=== PATIENT | female | born 1935 | race Caucasian/White ===

== ENCOUNTER 2023-08-26 16:07 | Inpatient (IN) | payer OTHER, SELFPAY ==
[2023-08-26] VITALS (10 sets, daily range): BP systolic 147–169; BP diastolic 59–75; BMI 22.6; BMI 21.2
[2023-08-26 13:06] LABS: Urine Albumin Trace (Neg - Trace); Urine Bilirubin Negative (Negative); Urine Character Very Cloudy (Clear); Urine Color Straw; Urine Glucose Negative (Negative); Urine Ketone Negative (Negative); Urine Leukocyte 2+ (Negative); Urine Nitrite Positive (Negative); Urine Occult Blood Trace (Negative); Urine Urobilinogen Negative (Neg - 1+)
[2023-08-26 13:07] LABS: % Basophils 0.1 % (0-2); % Immature Granulocytes 0.3 % (0-0.5); % Lymphocytes 9.7 % (20.5-51.1); % Monocytes 6.9 % (1.7-9.3); Absolute Lymphocytes 0.7 10^3/uL (1.2-3.4); Absolute Monocytes 0.5 10^3/uL (0.1-0.6); Hematocrit 36.3 % (37.0-47.0); Hemoglobin 12.4 g/dL (12.0-16.0); Mean Corp Hgb Conc. 34.2 g/dL (33.0-37.0); Mean Corpuscular Hgb 30.4 pg (27.0-31.0); Mean Platelet Volume 11.5 fL (7.4-10.4); Nucleated Red Blood Cells % 0 %; Platelet Count 142 10^3/uL (130-400); Red Blood Cell Count 4.08 10^6/uL (4.20-5.40); Red Cell Dist. Width 13.7 % (11.5-14.5); White Blood Cell Count 7.2 10^3/uL (4.8-10.8)
[2023-08-26 13:25] LABS: ALT (SGPT) 30 U/L (0-35); AST (SGOT) 30 U/L (14-36); Alkaline Phosphatase 132 U/L (38-126); Blood Urea Nitrogen 22 mg/dl (7-17); Calcium 10.4 mg/dl (8.4-10.2); Carbon Dioxide 26 mmol/L (22-30); Chloride 101 mmol/L (98-107); Estimated Creatinine Clearance 33 ml/min; Glucose 147 mg/dl (70-99); Lithium 1.1 mmol/L (0.6-1.2); Potassium 4.4 mmol/L (3.5-5.1); Sodium 131 mmol/L (135-145); Total Bilirubin 0.3 mg/dl (0.2-1.3); Total Protein 6.8 g/dl (6.3-8.2); eGFR 48.33
--- NOTE | 2023-08-26 13:35 | ED.GENMED ---
History of Present Illness
<Demetrio Forrest MD - Last Filed: 08/27/23 07:55>
General
Chief Complaint: Weakness
Time Seen by Provider: 08/26/23 12:40
Travel History
Have you had any contact with someone who has COVID-19?: Unable to Answer
Do you have any symptoms of coronavirus? Fever > 100 degrees, chills, cough, shortness of breath, sore throat, loss of taste or smell, muscle aches, or headache?: Unable to Answer
<Addie العراقي PA-C - Last Filed: 08/26/23 17:48>
General
Source: patient
Exam Limitations: none
Nursing documentation reviewed up to this point in time: agreed with
History of Present Illness
History of Present Illness:
This is a 88-year-old female with a history of bipolar disorder, insulin-dependent diabetes, hypertension he is presenting emergency department today with dysphagia and decreased appetite for the past few days. Daughter present with patient who
reports that when she will get UTIs, she will start to slur her words and to have much difficulty speaking. Patient states that she has been having trouble speaking and will often get frustrated when trying to speak. She denies any belly pain,
dysuria, hematuria, fevers or chills. Daughter reports that she has been sleeping a lot more than usual and normally she has a large appetite but she has barely been eating. 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
her third occurrence since 2018. Patient does take haloperidol, lithium, and risperidone daily for her bipolar disorder and has been trying to go off of these in the past however every time she tries to come off of them, her mental health
deteriorates. Daughter reports that patient has a lot of anxiety and some paranoia at baseline, but she usually has no difficulties with speech.
Past History
<Demetrio Forrest MD - Last Filed: 08/27/23 07:55>
Past History
ED Past Medical History: HTN, IDDM, Psychiatric and Other (IBS)
ED Past Surgical History: Cholecystectomy
Social History
Tobacco: Non-smoker
Personal:
Living: with family
Employment: Retired
Review of Systems
<Addie العراقي PA-C - Last Filed: 08/26/23 17:48>
Review of Systems
All Other Systems: ROS reviewed and negative except as documented in HPI and ROS
Phy Exam
<Addie العراقي PA-C - Last Filed: 08/26/23 17:48>
Physical Exam
Physical Exam:
General: Patient is well appearing and in no acute distress; non-toxic
Skin: Warm and dry, no rashes or lesions
Head: Normocephalic, atraumatic
Eyes: Sclera non-icteric. EOMs intact. PERRLA.
Cardiac: Regular rate and rhythm, no murmurs.
Peripheral Vascular: No lower extremity edema, 2+ dorsalis pedis pulses bilaterally
Pulm: Normal respiratory effort, no wheezes, rales, or rhonchi
Abdomen: No abdominal tenderness to palpation, no palpable masses, no guarding, no rebound tenderness.
Neuro: Oriented to person, time, place. CN II-XII intact, no focal neurologic deficits. 4/5 strength in b/l upper and lower extremities. Bilateral upper extremity tremor noted with arms extended. Patient has slurring of her speech and expresses
frustration with this.
Psychiatric: Pleasant and cooperative.
Course
<Demetrio Forrest MD - Last Filed: 08/27/23 07:55>
Orders/Labs/Results
Orders:
Orders
08/26/23 12:45
Blood Culture Q30M
JOVANY Source: Blood/Venous
Specimen Description:
08/26/23 12:46
Electrocardiogram (*1) Urgent
Reason for Study: Fatigue / Weakness
08/26/23 12:47
EKG- Treatment ONCE
08/26/23 12:56
CMP [Comprehensive Metabolic Panel] Urgent
Complete Blood Count/With Diff Urgent
Ferritin Urgent
Comment: ADD
Folate Urgent
Comment: ADD
[place] Urgent
TSH Reflex To Free T4 Urgent
Comment: ADD
Urinalysis Reflex To Culture Urgent
Date Specimen was Collected: 08/26/23
Time Specimen was Collected: 12:47
Urine Microscopic Reflex Cult Urgent
Vitamin B12 Urgent
Comment: ADD
Urine Culture Urgent
JOVANY Source: U
Specimen Description:
Date Specimen was Collected: 08/26/23
Time Specimen was Collected: 12:47
08/26/23 13:00
Blood Culture Q30M
JOVANY Source: Blood/Venous
Specimen Description:
08/26/23 13:14
CT Head W/o Iv Contrast Urgent
Comment:
Reason For Exam: aphasia
08/26/23 13:34
0.9% Sodium Chloride 500 ml [Nss] 500 ml IV BOLUS
CefTRIAXone [Rocephin] 1,000 mg IV NOW STA
08/26/23 13:37
Lactic Acid Q4H
Comment: CANCEL 2nd LACTIC ACID IF 1st LACTIC ACID IS LESS THAN 2
08/26/23 13:41
Sterile Water [Sterile Water For Injection] 10 ml .ROUTE .[facility]
08/26/23 14:49
Add On- LAB Routine
Tests Added?: folate, ferritin, TSH reflex, B12
08/26/23 15:29
CefTRIAXone [Rocephin] 1,000 mg IV NOW STA
08/26/23 15:52
Admit/Transfer Patient As Directed
Co-Sign Provider:
Level of Care: Inpatient admission
Assign to:: Medical/Surgical
Physician / Group: walker
Diagnosis: UTI
Reason for Hospitalization: UTI
Expected length of stay greater than two midnights?: Yes
ELOS- Estimated Length of Stay in days: 3
I certify the patient meets the requirements for IP care: Yes
08/26/23 15:53
Code Status As Directed
Resuscitation Status: Full Code
08/26/23 17:46
Lactic Acid Q4H
Comment: CANCEL 2nd LACTIC ACID IF 1st LACTIC ACID IS LESS THAN 2
08/26/23 18:45
0.9% Sodium Chloride 1000 ml [Nss] 1,000 ml IV 80 mls/hr
Acetaminophen [Tylenol] 500 mg PO DAILYPRN PRN
Benztropine [Cogentin] 0.5 mg PO QPM
Bisacodyl [Dulcolax] 10 mg RECTAL [id number] PRN
Dextrose 50%-Water [Dextrose 50% Syringe] 12.5 grams IV [id number] PRN
Docusate W/Senna [Senokot-S] 1 tablet PO BIDPRN PRN
Glucagon [GlucaGen] 1 mg IM PRN PRN
Ibuprofen [Motrin] 400 mg PO DAILYPRN PRN
Insulin Aspart Corrective Low [Novolog Flexpen-Low Resistance] See Protocol SC AC
Polyethylene Glycol Powder [Miralax] 17 grams PO DAILYPRN PRN
Risperidone [Risperdal] 1 mg PO QPM
Trazodone [Desyrel] 25 mg PO HSPRN PRN
08/26/23 18:45
Activity As Directed
Activity Level: As Tolerated
Bedside Glucose Monitoring As Directed
Frequency: AC&HS
Additional Instructions:: Change to q6h if pt on TPN, tube feeding or not eating
Vital Signs As Directed
Frequency: Per unit guidelines
DX Deep Vein Thrombosis Video Routine
08/26/23 20:00
Haloperidol [Haldol] 0.25 mg PO BID
Heparin 5,000 units SC Q12
[place] Carbonate [Eskalith] 300 mg PO QPM
Oxybutynin Chloride [Ditropan] 5 mg PO BID
08/27/23 06:00
EKG [Electrocardiogram (*1)] IN AM
Reason for Study: QTc Monitoring
2200 calorie (18 carb) Diabetic
At Your Request: Full Participation
Does patient need a safe tray?: No
08/27/23 07:18
Basic Metabolic Panel IN AM
Complete Blood Count/No Diff IN AM
Glycohemoglobin (HgbA1c) IN AM
[place] IN AM
08/27/23 08:00
Artificial Tears (Pf) [Refresh Eye Drops (Pf)] 1 drops BOTH EYES DAILY
Aspirin Low Dose EC [Aspir Low (Enteric Coated)] 81 mg PO MOWEFR@0800
Atenolol [Tenormin] 25 mg PO DAILY
08/27/23 14:00
CefTRIAXone [Rocephin] 1,000 mg IV Q24H
08/28/23 06:00
Basic Metabolic Panel IN AM
Complete Blood Count/No Diff IN AM
08/29/23 06:00
Basic Metabolic Panel IN AM
Complete Blood Count/No Diff IN AM
08/30/23 06:00
Basic Metabolic Panel IN AM
Complete Blood Count/No Diff IN AM
08/31/23 06:00
Basic Metabolic Panel IN AM
Complete Blood Count/No Diff IN AM
Abnormal Lab Results
08/26/23 08/26/23
12:56 13:37
RBC 4.08 L 10^6/uL
(4.20-5.40)
Hct 36.3 L %
(37.0-47.0)
MPV 11.5 H fL
(7.4-10.4)
Absolute Lymphs (auto) 0.7 L 10^3/uL
(1.2-3.4)
Neutrophils % 83.0 H %
(42.2-75.2)
Lymphocytes % 9.7 L %
(20.5-51.1)
Sodium 131 L mmol/L
(135-145)
BUN 22 H mg/dl
(7-17)
Creatinine 1.1 H mg/dL
(0.6-1.0)
Glucose 147 H mg/dl
(70-99)
Lactic Acid 2.3 H mmol/L
(0.7-2.0)
Calcium 10.4 H mg/dl
(8.4-10.2)
Alkaline Phosphatase 132 H U/L
(38-126)
Ur Occult Blood Reflex Trace A
(Negative)
Urine Nitrite (Reflex) Positive A
(Negative)
Leukocyte Esterase Rfl 2+ A
(Negative)
Urine RBC 7-10 A /HPF
(0-2)
Urine WBC (Reflex) 30-40 A /HPF
(0-5)
Urine Bacteria (Reflex) Moderate A
(Negative)
08/26/23 12:56
08/26/23 12:56
Vital Signs
Initial and Last Documented VS:
Initial Vital Signs
Temp Pulse Resp BP Pulse Ox
98.6 F 77 18 169/75 93
08/26/23 12:38 08/26/23 12:38 08/26/23 12:38 08/26/23 12:38 08/26/23 12:38
Last Documented Vital Signs
Temp Pulse Resp BP Pulse Ox
98.3 F 72 16 147/66 94
08/26/23 23:41 08/26/23 23:41 08/26/23 23:41 08/26/23 23:41 08/26/23 23:41
[place];Addie العراقي PA-C - Last Filed: 08/26/23 17:48>
Orders/Labs/Results
Orders:
Orders
08/26/23 12:45
Blood Culture Q30M
JOVANY Source: Blood/Venous
Specimen Description:
08/26/23 12:46
Electrocardiogram (*1) Urgent
Reason for Study: Fatigue / Weakness
08/26/23 12:47
EKG- Treatment ONCE
08/26/23 12:56
CMP [Comprehensive Metabolic Panel] Urgent
Complete Blood Count/With Diff Urgent
Ferritin Urgent
Comment: ADD
Folate Urgent
Comment: ADD
[place] Urgent
TSH Reflex To Free T4 Urgent
Comment: ADD
Urinalysis Reflex To Culture Urgent
Date Specimen was Collected: 08/26/23
Time Specimen was Collected: 12:47
Urine Microscopic Reflex Cult Urgent
Vitamin B12 Urgent
Comment: ADD
Urine Culture Urgent
JOVANY Source: U
Specimen Description:
Date Specimen was Collected: 08/26/23
Time Specimen was Collected: 12:47
08/26/23 13:00
Blood Culture Q30M
JOVANY Source: Blood/Venous
Specimen Description:
08/26/23 13:14
CT Head W/o Iv Contrast Urgent
Comment:
Reason For Exam: aphasia
08/26/23 13:34
0.9% Sodium Chloride 500 ml [Nss] 500 ml IV BOLUS
CefTRIAXone [Rocephin] 1,000 mg IV NOW STA
08/26/23 13:37
Lactic Acid Q4H
Comment: CANCEL 2nd LACTIC ACID IF 1st LACTIC ACID IS LESS THAN 2
08/26/23 13:41
Sterile Water [Sterile Water For Injection] 10 ml .ROUTE .[facility]
08/26/23 14:49
Add On- LAB Routine
Tests Added?: folate, ferritin, TSH reflex, B12
08/26/23 15:29
CefTRIAXone [Rocephin] 1,000 mg IV NOW STA
08/26/23 15:52
Admit/Transfer Patient As Directed
Co-Sign Provider:
Level of Care: Inpatient admission
Assign to:: Medical/Surgical
Physician / Group: walker
Diagnosis: UTI
Reason for Hospitalization: UTI
Expected length of stay greater than two midnights?: Yes
ELOS- Estimated Length of Stay in days: 3
I certify the patient meets the requirements for IP care: Yes
08/26/23 15:53
Code Status As Directed
Resuscitation Status: Full Code
08/26/23 17:46
Lactic Acid Q4H
Comment: CANCEL 2nd LACTIC ACID IF 1st LACTIC ACID IS LESS THAN 2
08/26/23 18:45
0.9% Sodium Chloride 1000 ml [Nss] 1,000 ml IV 80 mls/hr
Acetaminophen [Tylenol] 500 mg PO DAILYPRN PRN
Benztropine [Cogentin] 0.5 mg PO QPM
Bisacodyl [Dulcolax] 10 mg RECTAL [id number] PRN
Dextrose 50%-Water [Dextrose 50% Syringe] 12.5 grams IV [id number] PRN
Docusate W/Senna [Senokot-S] 1 tablet PO BIDPRN PRN
Glucagon [GlucaGen] 1 mg IM PRN PRN
Ibuprofen [Motrin] 400 mg PO DAILYPRN PRN
Insulin Aspart Corrective Low [Novolog Flexpen-Low Resistance] See Protocol SC AC
Polyethylene Glycol Powder [Miralax] 17 grams PO DAILYPRN PRN
Risperidone [Risperdal] 1 mg PO QPM
Trazodone [Desyrel] 25 mg PO HSPRN PRN
08/26/23 18:45
Activity As Directed
Activity Level: As Tolerated
Bedside Glucose Monitoring As Directed
Frequency: AC&HS
Additional Instructions:: Change to q6h if pt on TPN, tube feeding or not eating
Vital Signs As Directed
Frequency: Per unit guidelines
DX Deep Vein Thrombosis Video Routine
08/26/23 20:00
Haloperidol [Haldol] 0.25 mg PO BID
Heparin 5,000 units SC Q12
[place] Carbonate [Eskalith] 300 mg PO QPM
Oxybutynin Chloride [Ditropan] 5 mg PO BID
08/27/23 06:00
EKG [Electrocardiogram (*1)] IN AM
Reason for Study: QTc Monitoring
2200 calorie (18 carb) Diabetic
At Your Request: Full Participation
Does patient need a safe tray?: No
08/27/23 07:18
Basic Metabolic Panel IN AM
Complete Blood Count/No Diff IN AM
Glycohemoglobin (HgbA1c) IN AM
[place] IN AM
08/27/23 08:00
Artificial Tears (Pf) [Refresh Eye Drops (Pf)] 1 drops BOTH EYES DAILY
Aspirin Low Dose EC [Aspir Low (Enteric Coated)] 81 mg PO MOWEFR@0800
Atenolol [Tenormin] 25 mg PO DAILY
08/27/23 14:00
CefTRIAXone [Rocephin] 1,000 mg IV Q24H
08/28/23 06:00
Basic Metabolic Panel IN AM
Complete Blood Count/No Diff IN AM
08/29/23 06:00
Basic Metabolic Panel IN AM
Complete Blood Count/No Diff IN AM
08/30/23 06:00
Basic Metabolic Panel IN AM
Complete Blood Count/No Diff IN AM
08/31/23 06:00
Basic Metabolic Panel IN AM
Complete Blood Count/No Diff IN AM
Abnormal Lab Results
08/26/23 08/26/23
12:56 13:37
RBC 4.08 L 10^6/uL
(4.20-5.40)
Hct 36.3 L %
(37.0-47.0)
MPV 11.5 H fL
(7.4-10.4)
Absolute Lymphs (auto) 0.7 L 10^3/uL
(1.2-3.4)
Neutrophils % 83.0 H %
(42.2-75.2)
Lymphocytes % 9.7 L %
(20.5-51.1)
Sodium 131 L mmol/L
(135-145)
BUN 22 H mg/dl
(7-17)
Creatinine 1.1 H mg/dL
(0.6-1.0)
Glucose 147 H mg/dl
(70-99)
Lactic Acid 2.3 H mmol/L
(0.7-2.0)
Calcium 10.4 H mg/dl
(8.4-10.2)
Alkaline Phosphatase 132 H U/L
(38-126)
Ur Occult Blood Reflex Trace A
(Negative)
Urine Nitrite (Reflex) Positive A
(Negative)
Leukocyte Esterase Rfl 2+ A
(Negative)
Urine RBC 7-10 A /HPF
(0-2)
Urine WBC (Reflex) 30-40 A /HPF
(0-5)
Urine Bacteria (Reflex) Moderate A
(Negative)
08/26/23 12:56
08/26/23 12:56
Vital Signs
Initial and Last Documented VS:
Initial Vital Signs
Temp Pulse Resp BP Pulse Ox
98.6 F 77 18 169/75 93
08/26/23 12:38 08/26/23 12:38 08/26/23 12:38 08/26/23 12:38 08/26/23 12:38
Last Documented Vital Signs
Temp Pulse Resp BP Pulse Ox
98.3 F 72 16 147/66 94
08/26/23 23:41 08/26/23 23:41 08/26/23 23:41 08/26/23 23:41 08/26/23 23:41
<Addie العراقي PA-C - Last Filed: 08/26/23 17:48>
MDM/Problems Addressed
Differential Diagnosis Includes:
Metabolic encephalopathy, UTI, pyelonephritis, kidney stone, appendicitis, stroke, TIA, brain tumor, lithium toxicity
MDM/Problems Addressed:
Speech difficulties, decreased appetite, fatigue
Chronic conditions affecting care:
Bipolar disorder, hypertension, diabetes
Acute Exacerbation and/or Progression of Chronic Illness:
Bipolar disorder, hypertension, diabetes
<Addie العراقي PA-C - Last Filed: 08/26/23 17:48>
*Radiology
Radiology exam reviewed: preliminary read by ED provider (No acute intracranial abnormality)
*Pulse Oximetry
Patient hypoxic: no
*Critical Care Note
Total Time (30-74mins, 75-104mins- exclusive of procedures): Not Applicable
Data Reviewed
Review of Other/Old Records Reveals: Records (Reviewed records from ER physician documentation on 04/30/2022, as well as past ER visits.) and Discharge Summary (Reviewed discharge summary on 05/08/2022 where patient had a similar presentation)
Source: patient and records
<Addie العراقي PA-C - Last Filed: 08/26/23 17:48>
Patient Management
Escalation/DeEscalation of care consider admission/obs:
This is a 88-year-old female with a history of bipolar disorder, insulin-dependent diabetes, hypertension he is presenting emergency department today with dysphagia and decreased appetite for the past few days. Daughter present with patient who
reports that when she will get UTIs, she will start to slur her words and to have much difficulty speaking. This is evident on physical exam. She also has decreased muscle strength on exam. Here in the emergency department, she is afebrile, she
is no abdominal tenderness, however her urinalysis does show evidence of a urinary tract infection, and she may be a bit dehydrated. Patient was seen by neurology in consult who believes that patient presentation is likely related to an acute
metabolic encephalopathy likely from UTI but no indication for change of lithium dosing at this time. Patient and daughter in agreement with plan for admission for IV antibiotics for UTI.
ED Attending Note
<Demetrio Forrest MD - Last Filed: 08/27/23 07:55>
ED Attending Note
Patient seen and examined by attending physician: Yes
ED Attending Note:
Patient with history of bipolar disorder and Parkinson disease, presents to ED secondary to 3-day history of slurred speech along with confusion and decreased appetite. Denies fever or chills. Denies chest pain. Denies coughing. Denies abdominal
pain. Denies nausea, vomiting, or diarrhea. Denies recent change in medications or diet. Per daughter at bedside, patient has had intermittent episodes similar symptoms, but usually resolved within 24 hours. However, patient has had prolonged
symptoms in the past, secondary to an infection, usually urinary tract infection.
Physical Exam
General: mild distress, not acutely ill. afebrile
Head: nc/at. eomi
Neck: supple. normal range of motion.
Heart: s1/s2 regular rate and rhythm, no murmur. equal radial pulses.
Lungs: no acute respiratory distress. clear bilaterally
Abdomen: normal bowel sounds. not tender.
Neuro: somnolent but easily arousable. no focal sensory/motor deficits. slurred/slowed speech noted. resting tremor noted.
Skin: no rash
Psychiatric: pleasant and cooperative.
Extremities: no edema. no calf tenderness.
History/exam consistent with likely mental status change along with mild speech impairment, likely due to UTI. However, difficult to completely exclude potential TIA vs CVA. As such, along with iv abx/IVF, will obtain CT head along with neurology
consult.
-
Portions of this chart may have been created with voice recognition software.� Occasional wrong word or��sound alike� substitutions may have occurred due to the inherent limitations of voice recognition software.
Discharge Plan
Departure
Patient Disposition: Admit
Date of Disposition: 08/26/23
Time of Disposition: 15:27
Admit to: Med/Surg
Presentation/result/management discussed w/ accepting MD/DO: Hospitalist
Condition: Fair
Discharge Problem:
Urinary tract infection, Acute metabolic encephalopathy
Interventions
Interventions:
*Risk Screen - Suicide Last Done: 08/26/23 21:24
*General Assessment Last Done: 08/26/23 12:38
*Neglect/Abuse Screening Last Done: 08/26/23 15:25
ED- Fall Risk Assessment Last Done: 08/26/23 18:41
*ED COVID-19 Vaccine History Last Done: 08/26/23 21:24
*Nursing Disposition Last Done: 08/26/23 18:41
ED- Cardiac Assessment Last Done: 08/26/23 14:30
ED- Neurological Assessment Last Done: 08/26/23 14:30
ED- Pulmonary Assessment Last Done: 08/26/23 14:30
Discharge Date and Time
Discharge Date/Time: 08/26/23 18:44
--- NOTE | 2023-08-26 13:42 | CON.NEURO4 ---
Addendum entered and electronically signed by Joon Queen MD 08/26/23 16:25:
Studies reviewed.
I have personally examined the patient. I reviewed and agree with the INFANT ROOM TEACHER's Note.
My addenda:
Awake, at times interactive. No acute distress.
Speech thick.
Follows one-step requests with difficulty. No tremor.
Extra-ocular movements grossly intact.
Facial movements full and symmetric. Hearing intact to normal conversational volume.
Normal UE movements bilaterally.
Neck: full ROM.
Chest: no dyspnea
Heart: no JVD
Ext: (-) Clubbing, (-) Cyanosis, (-) Edema
IMPRESSIONS/RECOMMENDATIONS:
Abrupt onset of change in mental status; consistent with patient's prior episodes of encephalopathy associated with infection
Continue supportive care
Would not change patient's lithium levels
D/W patient / family / nursing
All questions answered.
Will continue to follow as needed.
Original Note:
Consultation - Neurology 4
-
CONSULTING PHYSICIAN: Joon Queen MD
REFERRING PHYSICIAN: KEVIN/Addie العراقي PA-C
DICTATED BY: EDUARDO Parker
DATE/TIME OF REQUEST: 08/26/23
DATE/TIME OF CONSULTATION: 08/26/23
Reason for Consultation: Aphasia
History of Present Illness:
This is an 88-year-old female who has presented to the hospital with report of speech difficulty, decreased appetite, and confusion starting three days ago on 08/23/23. Patient has been evaluated by our inpatient Neurology service previously in 2018
and 2022 for similar symptoms in the setting of underlying infection.
From previous evaluation by Dr. Glynn on 05/01/22:
'86-year-old woman with a past history of psychiatric disorder including depression on lithium, diabetes, left sphenoid bone meningioma presenting the hospital with generalized weakness, change in mental status, speech difficulties. Patient has
been chronically on lithium for at least more than 20 years did have previous evaluation by neurology and psychiatry with recommendations to stop taking lithium at that time the patient has not been agreeable to this. No known diagnosis of
Parkinson's disease or follow-up with neurology in our office. History obtained from patient to a small degree but also past medical records. Currently she endorses no pain. Patient has been on both Zyprexa, lithium, and zolpidem. [place] level
1.2, creatinine 1.2.'
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 Her lithium was held in 04/2022 due to
concern of drug-induced Parkinsonism, and the patient's daughter at bedside reports that this caused her to have a manic episode for the first time in decades and she ended up hospitalized in a psych facility.
Patient's daughter reports that three days ago the patient's speech became hypophonic and garbled and her appetite decreased. Patient's daughter reports that the patient's symptoms are almost identical to episodes she has had in the past when she
has a UTI or other infection. These symptoms did not improve, and out of concern that she might have another underlying infection she brought her to the ER for evaluation. CT head was obtained and is negative for any acute abnormalities. Urinalysis
is suggestive of UTI. Lactic acid level is 2.3. [place] level is normal at 1.1. At baseline patient has a tremor and takes Cogentin PRN. 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 Patient is
unable to provide a complete ROS but denies any pain.
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
Surgical History: Cholecystectomy.
Family History: Reviewed and noncontributory.
Social History: Reports occasional alcohol. Denies tobacco and illicit drug use.
Allergies: No known allergies
Home Medications: See below.
Review of Symptoms:
Patient is unable to complete a ful ROS due to aphasia.
�Per the HPI.�All systems are reviewed negative except above.
Physical Exam:
The patient is afebrile, abdomen is nondistended, breathing is unlabored, skin is warm and dry, no edema.
Neurologic Examination:
The patient is awake, lethargic, and oriented to self only. She is able to follow some one-step commands and answer questions appropriately. There is moderate aphasia/reduced output and dysarthria. On cranial nerve assessment, pupils are 3 mm
bilateral, round and reactive to light and accommodation. PILO visual dugan and extraocular movements, no gaze deviation. Left eye chronic blindness. There is no facial asymmetry. Hearing is intact bilaterally to normal conversation volume. Tongue
palate and uvula are midline. Motor strengths are 5/5 bilateral upper and lower extremities on medical research [place] scale. There is no drift. Distal>proximal low amplitude nonrhythmic bilateral upper extremity tremor. Increased tone bilateral
upper extremities. Deep tendon reflexes are 1+ bilateral upper and lower extremities and Babinski is absent bilaterally. PILO DBS, sensation, and coordination.
Lab Results: See below.
Neuro Imaging:
1. CT head 08/26/23: No acute intracranial abnormality noted.
Differentials for the patient's presentation include:
1. TME due to underlying UTI or other infection/metabolic disturbance likely producing symptomatology.
2. Very low concern for acute intracranial abnormality or chronic meningioma producing symptoms.
3. Drug-induced parkinsonism.
4. Bipolar disorder.
Patient has the following risk factors for their symptoms: Chronic antipsychotic usage, drug-induced parkinsonism, UA suggestive of UTI, age, NIDDM, HTN
Recommendations:
-Infection workup per primary team, supportive care.
-ST evaluation for swallowing clearance.
-If no improvement in several days with infection treatment, consider MRI brain noncontrast.
-DVT prophylaxis.
-Family declines altering lithium treatment in any way.
-Please contact our Neurology service with any questions/concerns.
Discussed patient care with: Dr. Queen, patient's daughter, the patient
Vital Signs and Labs
-
Vital Signs and Labs:
Vital Signs
Temp Pulse Resp BP Pulse Ox
98.6 F 66 17 151/71 94
08/26/23 12:38 08/26/23 13:30 08/26/23 13:30 08/26/23 13:00 08/26/23 13:30
Lab Results
08/26/23 12:56
08/26/23 12:56
Sodium 131 mmol/L (135-145) L 08/26/23 12:56
Potassium 4.4 mmol/L (3.5-5.1) 08/26/23 12:56
BUN 22 mg/dl (7-17) H 08/26/23 12:56
Glucose 147 mg/dl (70-99) H 08/26/23 12:56
Calcium 10.4 mg/dl (8.4-10.2) H 08/26/23 12:56
Medications
-
Home Medications
�Medication �Instructions �Recorded
oxybutynin chloride 5 mg tablet 5 mg PO BID Urinary issue 12/16/17
polyethylene glycol 3350 17 gram 17 grams PO DAILY PRN constipation 12/16/17
oral powder packet
atenolol 25 mg tablet 25 mg PO DAILY 12/23/17
cyanocobalamin (vitamin B-12) 1,000 mcg PO DAILY 12/23/17
1,000 mcg tablet
Insulin Glargine Lantus As Directed mls/hr SC HS 05/03/22
[Lantus] 5 units
risperidone 0.5 mg tablet 0.5 mg PO HS #30 tabs 05/03/22
[2023-08-26] MEDS: ROCEPHIN 1000 MG IV (13:44)
[2023-08-26 13:45] LABS: Urine Bacteria Moderate (Negative); Urine Squamous Cell 0-2 /LPF (Few)
[2023-08-26 13:46] LABS: Urine White Cell 30-40 /HPF (0-5)
[2023-08-26] MEDS: NSS 500 IV (13:51)
[2023-08-26 14:21] LABS: Lactic Acid 2.3 mmol/L (0.7-2.0)
--- NOTE | 2023-08-26 14:57 | PHANOTE ---
08/26/2023, [facility] rec tech, spoke to pt.'s daughter to obtain pt.'s med. history; per daughter, pt. injects 5 units of Lantus Insulin QPM; however, could not confirm Lantus with another source. Pt. has no [facility] records.
--- NOTE | 2023-08-26 15:33 | HPS.HSE ---
Family Physician
-
Family Physician: INTERVIEWE UNKNOWN - PT NOT
Chief Complaint
-
Confusion
History of Present Illness
88-year-old with past medical history for hypertension, diabetes, depression, bipolar presented to us with change in mental status since Friday evening. Daughter noticed mom with slurred speech. Patient was not any making any sense. Patient is
very weak and poor appetite. She had the same symptoms with UTI in the past. Denied any fever. Patient denied any chest pain or short of breath patient denied abdominal pain, nausea, vomiting, diarrhea. Patient is incontinent of urine at night
she uses toilet during the daytime.
Lactic 2.3. Positive UA patient received a dose of ceftriaxone in ER admitting for further management.
Medical History
Past Medical History
Past Medical History: Reports Other
Additional Past Medical History:
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
Past Surgical History: Reports Other
Additional Past Surgical History:
Cholecystectomy
Social History
Tobacco: Non-smoker
Alcohol: None
Drug: None
Personal: Single
Family History
Family History: Not pertinent
Allergies / Home Medications
Allergies reflects when Allergies were last updated in [facility].
Home Medications with original date entered in [facility]
Allergy/Medication List:
Allergies
Allergy/AdvReac Type Severity Reaction Status Date / Time
No Known Allergies Allergy Verified 08/26/23 12:44
Home Medications
acetaminophen 500 mg tablet (Tylenol Extra Strength) 500 mg PO DAILYPRN PRN mild pain 08/26/23
aspirin 81 mg tablet,delayed release 81 mg PO MOWEFR@0800 08/26/23
atenolol 25 mg tablet 25 mg PO DAILY 08/26/23
benztropine 0.5 mg tablet 0.5 mg PO QPM 08/26/23
haloperidol 0.5 mg tablet 0.25 mg PO BID 08/26/23
ibuprofen 200 mg tablet 400 mg PO DAILYPRN PRN mild pain 08/26/23
insulin glargine 100 unit/mL subcutaneous solution (Lantus U-100 Insulin) 5 unit SC DAILY@1900 08/26/23
lithium carbonate 300 mg capsule 300 mg PO QPM 08/26/23
oxybutynin chloride 5 mg tablet 5 mg PO BID 08/26/23
peg 400-propylene glycol (PF) 0.4 %-0.3 % eye drops in a dropperette (Systane (PF)) 1 drp BOTH EYES DAILY 08/26/23
risperidone 1 mg tablet 1 mg PO QPM 08/26/23
trazodone 50 mg tablet 25 mg PO HS PRN insomnia 08/26/23
Review of Systems
-
Constitutional: Reports Fatigue
EENT: Reports No Symptoms
Respiratory: Reports No Symptoms
Cardiac: Reports No Symptoms
Abdomen/GI: Reports No Symptoms
: Reports No Symptoms
Musculoskeletal: Reports No Symptoms
Skin: Reports No Symptoms
Neurological: Reports Weakness and Other (Slurred speech)
Endocrine: Reports No Symptoms
Hematologic/Lymphatic: Reports No Symptoms
Psych: Reports No Symptoms
Physical Exam
Vital Signs
Vital Signs
Temp Pulse Resp BP Pulse Ox
98.6 F 66 16 156/66 95
08/26/23 12:38 08/26/23 15:15 08/26/23 15:15 08/26/23 15:06 08/26/23 15:15
Physical Exam
General: Well Developed, Well Nourished and No Apparent Distress
HEENT: NormoCephalic, Moist mucous membranes and Atraumatic
Respiratory: Clear
Cardiac: S1/S2 and Regular Rhythm; No Murmur or Rub
GI: Soft, Non Tender, Non Distended and Normal Bowel Sounds; No Organomegaly
Rectal: Deferred by Provider
Musculoskeletal: No Clubbing, No Cyanosis and No Edema
Skin: No Rash
Neuro: AO x 3 and Nonfocal/grossly intact
Psych: Calm
Laboratory Results
-
08/26/23 12:56
08/26/23 12:56
Laboratory Results
Lactic Acid 2.3 mmol/L (0.7-2.0) H 08/26/23 13:37
Total Bilirubin 0.3 mg/dl (0.2-1.3) 08/26/23 12:56
AST 30 U/L (14-36) 08/26/23 12:56
ALT 30 U/L (0-35) 08/26/23 12:56
Alkaline Phosphatase 132 U/L (38-126) H 08/26/23 12:56
Data Reviewed
-
CT Scan: Report Reviewed by me
Lab Data: Labs Reviewed by me
Impression/Plan
-
#slurred spech/fatigue, decreased appetite likely metabolic encephalopathy from UTI
-Lactic 2.3
-Head CT with no acute intracranial abnormality noted
-Blood and urine sent from ER
-IV ceftriaxone continued
-Trend lactic
-Tylenol as needed for fever
-Continue to monitor
# Hyponatremia likely hypovolemic/CKD stage IIIb
-Sodium 131, creatinine 1.1
-Continue to monitor BMP
-normal saline continued
#prolonged QT
-obtain EKG in am
# Essential hypertension
-Blood pressure stable
-Atenolol continued
# History of tremor/drug-induced Parkinson
-Benztropine continued
# Depression//bipolar
-Haldol continued
-[place] [address] continued
-Risperidone continued
-Trazodone continued
-lithium level 1.1. repeat lithium level in AM
# Type 2 diabetes
-Lantus 5 units continued
-Sliding scale
-Carb controlled diet
# DVT prophylaxis
-Heparin subcu
# CODE STATUS
-Full code
--- NOTE | 2023-08-26 15:52 | W.PN.UPDATE ---
Update Note
Progress Note Update
This serves as an addendum to H&P dictated by Neel Starr on 08/26/2023.
I saw and examined the patient.
The CREDIT REPORTING CLERK or PA's note was reviewed and I agree with the note.
Comment:
Patient 88 years old female with past medical history of hypertension, diabetes mellitus, bipolar, drug-induced parkinsonism, presented to the hospital mental status changes. Patient has been very confused, garbled speech, generalized weakness, and
poor appetite. She has been feeling ill for the last 3 days. Denies fevers or chills. Denies dysuria or urgency but overall she is incontinent in urine. She does take lithium on regular basis for many years and lithium levels is 1.2 today and
creatinine 1.2. She also takes Zyprexa, Cogentin as needed, and zolpidem. She also has a meningioma. In the ER, WBC 7.2, urine with pyuria 30-40 WBC and moderate urine bacteriuria and positive urine nitrite and leukocyte esterase positive.
Physical exam:
General: Acute and chronically ill
HEENT: Normocephalic, Atraumatic and Moist Mucous Membranes
Respiratory: Clear to Auscultation; Negative Wheezes, Rales or Rhonchi
Cardiac: Regular Rhythm and S1/S2
GI: Soft, Nontender and Nondistended
Musculoskeletal: No Clubbing, No Cyanosis and No Edema
Neuro: Awake, Alert and Disoriented, no gross neuro-deficits.
Psych: Calm, hypoactive.
A/P:
Toxic metabolic encephalopathy suspected due to UTI but given underlying psychiatry illnesses and meds needs to make sure these are not contributing--> IV antibiotics, gentle IV fluid hydration, recheck lithium levels,psych eval. Will give further
recommendations based on clinical course.
[2023-08-26 16:59] LABS: TSH Reflex To Free T4 2.38 uIU/ml (0.47-4.68)
[2023-08-26 17:03] LABS: Ferritin 20.3 ng/ml (11.1-264.0)
[2023-08-26 17:34] LABS: Folate 8.4 ng/ml (2.76-20); Vitamin B12 430 pg/ml (239-931)
[2023-08-26 18:03] LABS: Lactic Acid 1.1 mmol/L (0.7-2.0)
[2023-08-26] MEDS: NSS 1000 IV (19:39)
[2023-08-26 19:49] LABS: Glucose - Point of Care 131 mg/dl (70-99)
[2023-08-26] MEDS: COGENTIN 0.5 MG PO (19:51)
[2023-08-26] MEDS: RISPERDAL 1 MG PO (19:52)
[2023-08-26] MEDS: LANTUS 0.0500000000000000028 UNITS SC (19:54)
[2023-08-26] MEDS: NOVOLOG FLEXPEN-LOW RESISTANCE SC (19:56)
[2023-08-26] MEDS: HALDOL 0.25 MG PO (20:15)
[2023-08-26] MEDS: ESKALITH 300 MG PO (20:16)
[2023-08-26] MEDS: DITROPAN 5 MG PO (20:16)
[2023-08-26] MEDS: HEPARIN 5000 UNITS SC (20:17)
[2023-08-26 21:44] LABS: Glucose - Point of Care 127 mg/dl (70-99)
[2023-08-27 07:41] LABS: Glucose - Point of Care 91 mg/dl (70-99)
[2023-08-27 08:00] VITALS: BP 119/73
[2023-08-27 08:06] LABS: Hematocrit 32.2 % (37.0-47.0); Hemoglobin 10.7 g/dL (12.0-16.0); Mean Corp Hgb Conc. 33.2 g/dL (33.0-37.0); Mean Corpuscular Hgb 30.3 pg (27.0-31.0); Mean Corpuscular Volume 91.2 fL (81.0-99.0); Mean Platelet Volume 11.2 fL (7.4-10.4); Platelet Count 126 10^3/uL (130-400); Red Blood Cell Count 3.53 10^6/uL (4.20-5.40); Red Cell Dist. Width 14.2 % (11.5-14.5); White Blood Cell Count 6.6 10^3/uL (4.8-10.8)
[2023-08-27 08:10] LABS: Blood Urea Nitrogen 22 mg/dl (7-17); Calcium 9.7 mg/dl (8.4-10.2); Carbon Dioxide 26 mmol/L (22-30); Chloride 104 mmol/L (98-107); Estimated Creatinine Clearance 33 ml/min; Glucose 98 mg/dl (70-99); Lithium 1.2 mmol/L (0.6-1.2); Potassium 4.4 mmol/L (3.5-5.1); Sodium 131 mmol/L (135-145); eGFR 48.33
[2023-08-27] MEDS: NOVOLOG FLEXPEN-LOW RESISTANCE SC ×3 (08:31→16:53)
[2023-08-27] MEDS: HEPARIN 5000 UNITS SC ×2 (08:33→20:30)
--- NOTE | 2023-08-27 08:38 | W.PN.HOSP.TC ---
Today's Communication/Plan
-
Continue IV antibiotics. Psychiatry eval. IVF.
Assessment / Plan
Assessment / Plan
Physical exam:
General: Well Developed, Well Nourished and No Apparent Distress
HEENT: Normocephalic, Atraumatic and Moist Mucous Membranes
Respiratory: Clear to Auscultation; Negative Wheezes, Rales or Rhonchi
Cardiac: Regular Rhythm and S1/S2
GI: Soft, Nontender and Nondistended
Musculoskeletal: No Clubbing, No Cyanosis and No Edema
Neuro: Awake, Alert and Oriented
Psych: Calm
A/P:
#slurred spech/fatigue, decreased appetite likely metabolic encephalopathy from UTI
-Lactic 2.3
-Head CT with no acute intracranial abnormality noted
-Blood and urine sent from ER
-IV ceftriaxone continued
-Trend lactic
-Tylenol as needed for fever
-Continue to monitor
# Hyponatremia likely hypovolemic/CKD stage IIIb
-Sodium 131, creatinine 1.1
-Continue to monitor BMP
-normal saline continued
#prolonged QT
-obtain EKG in am and QTc more decent at 462
# Essential hypertension
-Blood pressure stable
-Atenolol continued
# History of tremor/drug-induced Parkinson
-Benztropine continued
# Depression//bipolar
-Haldol continued
-[place] continued
-Risperidone continued
-Trazodone continued
-lithium level 1.1. repeat lithium level in AM and is 1.2 with mild drift upwards.
-Psychiatry consult
# Type 2 diabetes
-Lantus 5 units continued
-Sliding scale
-Carb controlled diet
# DVT prophylaxis
-Heparin subcu
# CODE STATUS
-Full code
Total time spent on today's encounter was 52 minutes which included time spent in counseling the patient/family regarding diagnosis and treatment plan as listed above, goals of care, and symptom management. Case was discussed with nursing staff,
specialists, and care coordinators/case management. All labs and imaging personally reviewed by me. Remainder the time spent in detailed review of previous records, lab data, imaging, and other medical provider documentation.
Anticipated Discharge: > 48 hours
Subjective/Interval History
-
Date of Service: August 27, 2023
Patient does not interact much today. Afebrile.
Objective Data
-
Labs:
Laboratory Results
08/27/23
07:18
WBC 6.6
Hgb 10.7 L
Hct 32.2 L
Plt Count 126 L
Sodium 131 L
Potassium 4.4
Chloride 104
Carbon Dioxide 26
BUN 22 H
Creatinine 1.1 H
Glucose 98
Calcium 9.7
Vital Signs:
Vital Signs
Temp Pulse Resp BP Pulse Ox
97.8 F 74 18 119/73 94
08/27/23 08:00 08/27/23 08:00 08/27/23 08:00 08/27/23 08:00 08/27/23 08:00
I&O
08/26/23 08/27/23 08/28/23
06:59 06:59 06:59
Intake Total 880 / 880
Balance 880 / 880
[2023-08-27] MEDS: DITROPAN PO (08:39)
[2023-08-27] MEDS: ASPIR LOW (ENTERIC COATED) PO (08:39)
[2023-08-27] MEDS: REFRESH EYE DROPS (PF) BOTH EYES (08:39)
[2023-08-27] MEDS: TENORMIN PO (08:39)
[2023-08-27] MEDS: HALDOL PO (08:39)
--- NOTE | 2023-08-27 10:19 | CM ---
Addendum entered by Bridget Miles 08/27/23 12:57:
CM met with patient and daughter, Adrianna, bedside, initial assessment completed. Per daughter, patient resides in an apartment on the first floor, no steps to enter, with 24/7 care through [facility]. Patient has a history of SNF at [facility],
[facility], and [facility]. Daughter reports patient PCP used to be Levi Cavazos, no longer has a current PCP. Patient pharmacy [facility], would like to switch to [facility], Adrianna unsure of which [facility] at this time, will leave current pharmacy
as primary. CM will watch for PT/OT evaluations for possible SNF recommendations. CM will continue to follow for discharge planning needs.
Plan; Home with care vs SNF, watch PT/OT evals.
Original Note:
Patient seen bedside with nurse eating breakfast. CM left voicemail for patients daughter, Nirmala, to conduct initial assessment. CM awaiting return call.
[2023-08-27] MEDS: KCL 1002.5 MEQ IV ×2 (10:46→22:58)
--- NOTE | 2023-08-27 11:38 | PTOTSP ---
SPEECH THERAPY SWALLOW EVALUATION:
Patient exhibits clinical signs of oropharyngeal dysphagia, likely acutely related to AMS/toxic metabolic encephalopathy related to UTI and/or psychiatric illness/medications, with likely chronic component given pre-existing mild pharyngeal
dysphagia as was noted during prior VFSS 05/03/2022. Patient remains at high risk for aspiration and related complications given lethargy and confusion. Recommend cautious IDDSI Level 4 Puree diet and thin liquids with strict aspiration precautions
and 1:1 assist. Medications crushed in puree. Only feed patient when awake/alert. D/c oral diet if signs of aspiration or a decline in mental or respiratory status. Speech therapy to follow, assess diet tolerance and modify as appropriate, monitor
CXR and labs, determine indication for VFSS if appropriate, and provide continued education regarding aspiration risks/precautions. Recommendations discussed with Dr. [place], RN; Recommendations posted in patient room.
RECOMMEND:
1) IDDSI Level 4 Puree diet and thin liquids
2) Medications crushed in puree
3) Strict aspiration precautions: 1:1 assist with meals; upright positioning; only feed patient when awake/alert; alternate textures; oral care after meals; check for pocketing; ensure patient swallows prior to next bite; single sips/bites; slow
rate of intake; D/C oral diet if signs or symptoms of aspiration or a decline in mental or respiratory status
4) Speech therapy to follow, assess diet tolerance and modify as appropriate, monitor CXR and labs, determine indication for VFSS if appropriate, and provide continued education regarding aspiration risks/precautions
[2023-08-27 12:41] LABS: Glucose - Point of Care 148 mg/dl (70-99)
[2023-08-27] MEDS: STERILE WATER FOR INJECTION 10 ML IV (13:42)
[2023-08-27] MEDS: ROCEPHIN 1000 MG IV (13:44)
[2023-08-27 13:54] VITALS: BP 137/61; PULSE 67; O2SAT 95
[2023-08-27 13:55] VITALS: BP 137/61; PULSE 67; O2SAT 95
[2023-08-27 15:11] VITALS: BP 158/75
[2023-08-27 15:22] LABS: Glycohemoglobin (HgbA1c) 5.4 % (4.0-5.6)
[2023-08-27 15:35] VITALS: BMI 21.2
--- NOTE | 2023-08-27 16:17 | CON.MD ---
Consultation - Medical
-
88 yo F with PMH of IDDM, HTN, hx of meningioma w/ left eye blindness & dx of parkinsons's late 2021. Presented with confusion & slurred speech, not making sense - as per daughter, has had poor appetite. Found to have UTI on admission. Psychiatry
consulted as pt has hx of bipolar disorder with multiple psychotropics on board.
Pt previously here & seen by psychiatry 04/2022 - reviewed prior evaluation and updated here. Pt unable to participate in meaningful interview, remains confused and will at times mumble incomprehensibly but otherwise laying with eyes closed. Pts
brother present and does corroborate that this is not baseline.
As per prior eval, pt has a hx of paranoia which can generally be managed with reassurance. Has hx of MDD with paranoia, no hx of bipolar d/o so not clear why pt is on lithium though it seems she has refused to adjust this. At prior admission
psychiatric medications, in particular antipsychotics were held and then low dose risperidone started to minimize EPS/worsening of parkinsons sxs. She is however currently taking both haldol 0.75mg BID & risperidone 1mg HS , as well as [place]
600mg HS, trazodone 75mg HS and benztropine 0.5mg HS. Li level currently 1.2
Past psych: inpatient hx remotely, taking medication for many yrs and relatively stable so has been hesitant to make changes
FH: none significant
D&A: none
SH: Lives with , has 2 daughters & brother who are social supports as well.
MDD as per hx w/ TME secondary to UTI
MSE: not alert, poor eye contact, speech is quiet and not discernible. Unable to assess mood, thought content, thought process, memory, orientantion. Insight/judgement suspect poor.
1. Stop haldol
2. continue risperidone 1mg HS for now though likely would be able to taper down on this as well, can continue benztropine for now as well
3. Decrease lithium to 450mg as level was 1.2 last year as well and pt is at significant risk of toxicity
4. Psych will follow
[2023-08-27 16:41] LABS: Glucose - Point of Care 108 mg/dl (70-99)
[2023-08-27] MEDS: COGENTIN PO (17:55)
[2023-08-27] MEDS: RISPERDAL PO (17:55)
[2023-08-27] MEDS: DITROPAN 5 MG PO (20:30)
[2023-08-27 20:54] LABS: Glucose - Point of Care 117 mg/dl (70-99)
[2023-08-27] MEDS: LANTUS 0.0500000000000000028 UNITS SC (20:59)
[2023-08-27] MEDS: ESKALITH ER (EXTENDED RELEASE) 450 MG PO (21:01)
[2023-08-27 23:00] VITALS: BP 154/64
[2023-08-28 06:28] LABS: Hematocrit 30.8 % (37.0-47.0); Hemoglobin 9.8 g/dL (12.0-16.0); Mean Corp Hgb Conc. 31.8 g/dL (33.0-37.0); Mean Corpuscular Volume 94.2 fL (81.0-99.0); Mean Platelet Volume 11.2 fL (7.4-10.4); Platelet Count 122 10^3/uL (130-400); Red Blood Cell Count 3.27 10^6/uL (4.20-5.40); Red Cell Dist. Width 14.2 % (11.5-14.5)
[2023-08-28 06:54] LABS: Blood Urea Nitrogen 18 mg/dl (7-17); Calcium 9.5 mg/dl (8.4-10.2); Carbon Dioxide 24 mmol/L (22-30); Chloride 107 mmol/L (98-107); Estimated Creatinine Clearance 36 ml/min; Glucose 117 mg/dl (70-99); Potassium 4.1 mmol/L (3.5-5.1); Sodium 133 mmol/L (135-145); eGFR 54.19
[2023-08-28 07:54] LABS: Glucose - Point of Care 113 mg/dl (70-99)
[2023-08-28 07:55] VITALS: BP 164/69
--- NOTE | 2023-08-28 09:32 | W.PN.HOSP.TC ---
Today's Communication/Plan
-
Change IV antibiotics. PT OT eval.
Assessment / Plan
Assessment / Plan
Physical exam:
General: Well Developed, Well Nourished and No Apparent Distress
HEENT: Normocephalic, Atraumatic and Moist Mucous Membranes
Respiratory: Clear to Auscultation; Negative Wheezes, Rales or Rhonchi
Cardiac: Regular Rhythm and S1/S2
GI: Soft, Nontender and Nondistended
Musculoskeletal: No Clubbing, No Cyanosis and No Edema
Neuro: Awake, Alert and Oriented
Psych: Calm
A/P:
Toxic metabolic encephalopathy:
Multifactorial, likely UTI, renal failure, and medications
Continue IV antibiotics (changes per today-see below)
Appreciate psychiatry eval
Updated daughter over the phone today
Urinary tract infection:
Enterobacter cloacae in the urine
Blood cultures no growth
Stop ceftriaxone and start IV Zosyn today
Bipolar:
Psychiatry consult and adjustment of medications if needed per psychiatry
Discontinue Haldol, continue risperidone, and decrease levels of lithium
[place] level is 1.2--> repeat in a.m.
MADONNA on CKD:
Stop IV fluids today
Encourage oral intake
Hyponatremia:
Sodium improved to 133 today
Continue to monitor
Prolonged QT
Latest EKG QTc decreasing to a more decent at 462
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
Neurology consult appreciated
Continue Cogentin
Hypertension:
Continue home antihypertensives
Diabetes mellitus type 2:
Continue insulin sliding scale
Continue long-acting insulin
DVT prophylaxis:
Heparin SQ
CODE STATUS:
Full code
Total time spent on today's encounter was 52 minutes which included time spent in counseling the patient/family regarding diagnosis and treatment plan as listed above, goals of care, and symptom management. Case was discussed with nursing staff,
specialists, and care coordinators/case management. All labs and imaging personally reviewed by me. Remainder the time spent in detailed review of previous records, lab data, imaging, and other medical provider documentation.
Anticipated Discharge: 24 - 48 hours
Subjective/Interval History
-
Date of Service: August 28, 2023
Patient more alert today. No fevers.
Objective Data
-
Labs:
Laboratory Results
08/28/23
05:18
WBC 6.0
Hgb 9.8 L
Hct 30.8 L
Plt Count 122 L
Sodium 133 L
Potassium 4.1
Chloride 107
Carbon Dioxide 24
BUN 18 H
Creatinine 1.0
Glucose 117 H
Calcium 9.5
Vital Signs:
Vital Signs
Temp Pulse Resp BP Pulse Ox
96.9 F L 50 18 164/69 98
08/28/23 07:55 08/28/23 07:55 08/28/23 07:55 08/28/23 07:55 08/28/23 07:55
I&O
08/27/23 08/28/23 08/29/23
06:59 06:59 06:59
Intake Total 880 / 880 480 / 480
Balance 880 / 880 480 / 480
[2023-08-28] MEDS: NOVOLOG FLEXPEN-LOW RESISTANCE SC ×3 (09:37→16:44)
[2023-08-28] MEDS: KCL 1002.5 MEQ IV (09:48)
[2023-08-28] MEDS: HEPARIN 5000 UNITS SC ×2 (09:52→20:38)
[2023-08-28] MEDS: REFRESH EYE DROPS (PF) 1 DROPS BOTH EYES (09:52)
[2023-08-28] MEDS: TENORMIN 25 MG PO (09:53)
[2023-08-28] MEDS: DITROPAN 5 MG PO ×2 (09:53→20:34)
--- NOTE | 2023-08-28 10:40 | CM ---
Patient seen bedside, CM having a difficult time understanding patient. CM spoke with patients daughter, Nirmala. Per Nirmala, patient typically ambulates with a walker, and would need to be an assist of one in order to return home with her 24/hr
caregiver. Nirmala reports her mother typically has no issue speaking and being unable to understand what she is saying is not her baseline. CM discussed SNF recommendations, daughter agreeable to referrals to [facility]. Nirmala reports her mother has to be agreeable, but also has to be able to stand and ambulate in order to return home. Referrals sent in [facility]. CM will continue to follow for discharge planning needs.
Plan; SNF pending accepting facility, will require authorization.
[2023-08-28] MEDS: ZOSYN 50 IV ×3 (11:37→22:04)
[2023-08-28 12:13] LABS: Glucose - Point of Care 98 mg/dl (70-99)
--- NOTE | 2023-08-28 13:11 | W.PN.UPDATE ---
Update Note
Progress Note Update
this patient is known to me from a similar episode of illness in april of 2022. spoke at length darryn carter this time as well. at that time she was admitted with severe cogwheeling rigidity and her lithium level was on the high side (also 1.20 ) which is
what it was when last done here this admit. we had stopped her risperdal and lithium initially and were restarting psych meds at the time of dc. she has a long hx of psychosis. she has hx of decompensating w uti and she is here on this admit w uti
again . the patient is followed by dr surjit griffin who sees her on video. the patient has severe cogwheeling rigidity. d feels this is preferable to her mother being psychotic as a result of dc of antipsychotics. patient had been hosp at [facility]
on psych in the past year and haldol AND risperdal were being given in addition to lithium. patient is seen on video and it is my guess that her treating psychiatrist did not realize how rigid she had become. d also says w uti her mother stops
eating and drinking and perhaps that is how lithium level went up to 1.2. when seen by neuro last go around there was re Parkinson's vs drug induced disease and decision made to stop antipsychotic which are likely to cause PD and monitor. not
clear if she had a FADY scan. for now at d's request have restarted a small dose of risperdal liquid which d says should be given in apple sauce. have increased cogentin to o.5 mg bid. would consider whether symmetrel might be better but that might
be worse vis a vis psychosis. will hold lithium and recheck level in am. dc haldol.
[2023-08-28 14:10] VITALS: BP 131/53
[2023-08-28 15:26] VITALS: BP 147/56
[2023-08-28 15:55] VITALS: BP 144/62; PULSE 55
[2023-08-28 16:45] LABS: Glucose - Point of Care 102 mg/dl (70-99)
[2023-08-28] MEDS: COGENTIN 0.5 MG PO (20:35)
[2023-08-28 21:23] LABS: Glucose - Point of Care 106 mg/dl (70-99)
[2023-08-28] MEDS: LANTUS 0.0500000000000000028 UNITS SC (22:03)
[2023-08-28] MEDS: RISPERDAL ORAL SOLUTION 0.5 MG PO (22:04)
[2023-08-28 23:29] VITALS: BP 132/56
[2023-08-29] MEDS: ZOSYN 50 IV ×4 (03:59→21:46)
[2023-08-29 06:52] LABS: Hematocrit 29.8 % (37.0-47.0); Hemoglobin 9.8 g/dL (12.0-16.0); Mean Corp Hgb Conc. 32.9 g/dL (33.0-37.0); Mean Corpuscular Hgb 29.9 pg (27.0-31.0); Mean Corpuscular Volume 90.9 fL (81.0-99.0); Mean Platelet Volume 10.7 fL (7.4-10.4); Platelet Count 149 10^3/uL (130-400); Red Blood Cell Count 3.28 10^6/uL (4.20-5.40); Red Cell Dist. Width 13.9 % (11.5-14.5); White Blood Cell Count 5.9 10^3/uL (4.8-10.8)
[2023-08-29 07:19] LABS: Blood Urea Nitrogen 18 mg/dl (7-17); Calcium 9.6 mg/dl (8.4-10.2); Carbon Dioxide 27 mmol/L (22-30); Chloride 105 mmol/L (98-107); Estimated Creatinine Clearance 33 ml/min; Glucose 110 mg/dl (70-99); Lithium 0.7 mmol/L (0.6-1.2); Potassium 4.2 mmol/L (3.5-5.1); Sodium 133 mmol/L (135-145); eGFR 48.33
[2023-08-29 07:55] VITALS: BP 149/60
[2023-08-29 08:05] LABS: Glucose - Point of Care 107 mg/dl (70-99)
[2023-08-29] MEDS: NOVOLOG FLEXPEN-LOW RESISTANCE SC ×3 (08:11→16:50)
--- NOTE | 2023-08-29 08:42 | W.PN.HOSP.TC ---
Addendum entered and electronically signed by Amilcar Birmingham MD 08/29/23 14:29:
After study MADONNA has been ruled out
Original Note:
Today's Communication/Plan
-
Continue IV antibiotics. Psychiatry follow-up. PT OT
Assessment / Plan
Assessment / Plan
Physical exam:
General: Well Developed, Well Nourished and No Apparent Distress
HEENT: Normocephalic, Atraumatic and Moist Mucous Membranes
Respiratory: Clear to Auscultation; Negative Wheezes, Rales or Rhonchi
Cardiac: Regular Rhythm and S1/S2
GI: Soft, Nontender and Nondistended
Musculoskeletal: No Clubbing, No Cyanosis and No Edema
Neuro: Awake, Alert and Oriented
Psych: Calm
A/P:
Toxic metabolic encephalopathy:
Multifactorial, likely UTI, renal failure, and medications
Continue IV antibiotics (changes per today-see below)
Appreciate psychiatry eval
Updated daughter over the phone yesterday
Urinary tract infection:
Enterobacter cloacae in the urine
Blood cultures no growth
Stopped ceftriaxone and started IV Zosyn yesterday
Bipolar:
Psychiatry consult and adjustment of medications if needed per psychiatry
Discontinue Haldol, continue risperidone, and holding lithium
[place] level is 1.2--> repeat today 08/28 and better 0.7
MADONNA on CKD:
Stopped IV fluids yesterday
Encourage oral intake
Hyponatremia:
Sodium improved to 133 today
Continue to monitor
Prolonged QT
Latest EKG QTc decreasing to a more decent at 462
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
Neurology consult appreciated
Continue Cogentin
Hypertension:
Continue home antihypertensives
Diabetes mellitus type 2:
Continue insulin sliding scale
Continue long-acting insulin
DVT prophylaxis:
Heparin SQ
CODE STATUS:
Full code
Total time spent on today's encounter was 52 minutes which included time spent in counseling the patient/family regarding diagnosis and treatment plan as listed above, goals of care, and symptom management. Case was discussed with nursing staff,
specialists, and care coordinators/case management. All labs and imaging personally reviewed by me. Remainder the time spent in detailed review of previous records, lab data, imaging, and other medical provider documentation.
Anticipated Discharge: 24 - 48 hours
Subjective/Interval History
-
Date of Service: August 29, 2023
Patient alert. Afebrile today.
Objective Data
-
Labs:
Laboratory Results
08/29/23
06:34
WBC 5.9
Hgb 9.8 L
Hct 29.8 L
Plt Count 149 D
Sodium 133 L
Potassium 4.2
Chloride 105
Carbon Dioxide 27
BUN 18 H
Creatinine 1.1 H
Glucose 110 H
Calcium 9.6
Vital Signs:
Vital Signs
Temp Pulse Resp BP Pulse Ox
98.0 F 50 18 149/60 100
08/29/23 07:55 08/29/23 07:55 08/29/23 07:55 08/29/23 07:55 08/29/23 07:55
I&O
08/28/23 08/29/23 08/30/23
06:59 06:59 06:59
Intake Total 480 / 480 1170 / 1170
Balance 480 / 480 1170 / 1170
--- NOTE | 2023-08-29 10:31 | CM ---
Addendum entered by Bridget Miles 08/29/23 14:59:
Patient seen bedside with caregiver, patient [facility] per request of [facility]. [facility] will have a bed Friday or Friday, cannot accept over the weekend. Patient would prefer to return home with 24 caregiver. CM discussed
patient still a max assist of 2. PT to see patient again today. CM spoke with patients daughter, Nirmala, would prefer patient to return home with caregiver, [facility]. Patient will require auth if goes to SNF. CM will continue
to follow for discharge planning needs.
Plan; [facility] accept Friday or Friday vs home with 24 hr care.
Original Note:
Patient seen bedside, discussed PT/OT recommendation of SNF. Patient inquiring if she can go home with services. CM discussed patients 11/11 caregiver needs patient to be at a one person assist in order to return home, at this time patient remains
two person assist. CM sent referrals to [facility], [facility], and [facility]. CM awaiting response from facilities regarding bed availability if patient is clear for discharge over the weekend. Patient will require auth. CM will continue to follow
for discharge planning needs.
Plan; SNF when medically stable, will need auth.
[2023-08-29] MEDS: TENORMIN 25 MG PO (10:42)
[2023-08-29] MEDS: REFRESH EYE DROPS (PF) 1 DROPS BOTH EYES (10:42)
[2023-08-29] MEDS: ASPIR LOW (ENTERIC COATED) 81 MG PO (10:42)
[2023-08-29] MEDS: HEPARIN 5000 UNITS SC ×2 (10:43→20:39)
[2023-08-29] MEDS: COGENTIN 0.5 MG PO ×3 (10:43→21:50)
[2023-08-29] MEDS: DITROPAN 5 MG PO ×2 (10:43→20:39)
--- NOTE | 2023-08-29 12:18 | PTOTSP ---
SPEECH THERAPY SWALLOW FOLLOW UP NOTE:
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 Patient demonstrating improvement in swallow function and mental status at this time. Recommend upgrade
to IDDSI Level 6 Soft and Bite size diet, thin liquids. Meds whole in puree. Aspiration precautions: Supervision with meals, assist as needed, Upright positioning, small single sips/bites, slow rate of intake. Speech therapy to continue to follow,
monitor diet tolerance and modify as appropriate, provide continued education regarding aspiration risks/precautions, and provide continued diagnostic swallow therapy as appropriate. Should patient experience decline in mental status, d/c oral diet
and re-consult ST services for diet recommendation at that time.
RECOMMEND:
1) diet upgrade to IDDSI Level 6 Soft and Bite size, thin liquids
2) Meds whole in puree
3) Aspiration precautions: Supervision with meals, assist as needed, Upright positioning, small single sips/bites, slow rate of intake
4) Speech therapy to continue to follow
--- NOTE | 2023-08-29 12:50 | PN.CDI ---
CDI
- -
CDI:
Physician Documentation Request
Admit Date: 08/26/23 16:07
Dear Doctor Valencia,
08/28 progress note states 'MADONNA on CKD'
Recent creatinine results:
Laboratory Tests
08/26/23 08/27/23 08/28/23
12:56 07:18 05:18
Creatinine 1.1 H 1.1 H 1.0
08/29/23
06:34
Creatinine 1.1 H
Criteria for MADONNA*
1 Increase in serum creatinine by > or = to 0.3 mg/dL (> or = to 26.5 micromol/L) within 48 hours, OR
2 Increase in serum creatinine to > or = to 1.5 times baseline, which is known or presumed to have occurred within 7 days, OR
3 Urine volume < 0.5 nL/kg/hour for six hours
Based on the above information and the recognized standard for MADONNA could you please verify this diagnoses is still accurate and reflective of the patient�s condition to ensure quality of the medical record.
Please clarify in the Progress Notes:
�MADONNA is/was present and is a clinical diagnosis based on (please include this additional support in the medical record)
�After study MADONNA has been ruled out
�Other
Use of terms such as suspected, likely, concern for, or probable (associated with a specific diagnosis that is being evaluated, monitored, or treated as if it exists) are acceptable and can be coded in the inpatient setting, when documented at the
time of discharge.
Thank you,
Sahara Wilson RN, BSN
CDI Specialist
tiger text
Please use your independent medical judgment in providing your response.
[2023-08-29 12:56] LABS: Glucose - Point of Care 124 mg/dl (70-99)
--- NOTE | 2023-08-29 13:00 | W.PN.UPDATE ---
Addendum entered and electronically signed by Tex Astudillo MD 08/29/23 13:12:
would use ativan for agitation if needed tonight to avoid the eps associated w risperdal and other antipsychotics
Original Note:
Update Note
Progress Note Update
patient seen chart reviewed. discussed with nursing and with aide at bedside. the patient continues to be very stiff presumably due to eps secondary to risperdal and haldol. (she is only on risperdal o.5 mg currently) she is also receiving cogentin
o.5 mg bid and has dry mouth. i did feel the cogwheeling was slightly less than yesterday. she is reluctant according to nsg and to aide to get up oob and walk likely because her legs are stiff too. discussed with dr goff whether symmetrel would
be more helpful but not clear. for now will hold the risperdal for tonight and increase cogentin to tid o.5 mg until tomorrow am when will reassess. it may take some time for the eps to clear no matter what is done...the first line should be
stopping the medication that is causing it and switching to an antipsychotic less likely to cause it but d says that nothing else has been effective. (i am going to call and leave a message for patient's out pt psychiatrist who sees patient on
video and may not be aware of the severity of eps). re lithium level : it is still o.7 despite last dose 08/26. will hold it for another night and check level in am. psych can decide in the am whether to restart but would restart at only 150 mg
daily. will follow
[2023-08-29 15:45] VITALS: BP 143/57; PULSE 53; O2SAT 99
[2023-08-29 15:55] VITALS: BP 143/57
[2023-08-29 16:39] LABS: Glucose - Point of Care 103 mg/dl (70-99)
[2023-08-29 20:31] LABS: Glucose - Point of Care 164 mg/dl (70-99)
[2023-08-29] MEDS: LANTUS 0.0500000000000000028 UNITS SC (20:37)
[2023-08-29] MEDS: TYLENOL 500 MG PO (20:45)
[2023-08-29 21:32] LABS: Glucose - Point of Care 161 mg/dl (70-99)
[2023-08-29 23:55] VITALS: BP 151/65
[2023-08-30] MEDS: ZOSYN 50 IV ×4 (03:50→21:05)
[2023-08-30 06:00] VITALS: BMI 21.7
[2023-08-30 07:00] VITALS: BP 154/65
[2023-08-30 07:37] LABS: Glucose - Point of Care 108 mg/dl (70-99)
[2023-08-30 08:29] LABS: Hematocrit 30.5 % (37.0-47.0); Hemoglobin 10.3 g/dL (12.0-16.0); Mean Corp Hgb Conc. 33.8 g/dL (33.0-37.0); Mean Corpuscular Volume 91.9 fL (81.0-99.0); Mean Platelet Volume 11.4 fL (7.4-10.4); Platelet Count 150 10^3/uL (130-400); Red Blood Cell Count 3.32 10^6/uL (4.20-5.40); White Blood Cell Count 4.5 10^3/uL (4.8-10.8)
[2023-08-30] MEDS: NOVOLOG FLEXPEN-LOW RESISTANCE SC ×2 (08:49→16:56)
[2023-08-30] MEDS: TENORMIN 25 MG PO (08:50)
[2023-08-30] MEDS: DITROPAN 5 MG PO ×2 (08:51→19:59)
[2023-08-30] MEDS: COGENTIN 0.5 MG PO ×2 (08:51→20:00)
[2023-08-30] MEDS: HEPARIN 5000 UNITS SC ×2 (08:52→19:58)
[2023-08-30] MEDS: REFRESH EYE DROPS (PF) 1 DROPS BOTH EYES (08:52)
--- NOTE | 2023-08-30 08:54 | W.PN.HOSP.TC ---
Today's Communication/Plan
-
Continue IV antibiotics. PT OT
Assessment / Plan
Assessment / Plan
Physical exam:
General: Chronically ill
HEENT: Normocephalic, Atraumatic and Moist Mucous Membranes
Respiratory: Clear to Auscultation; Negative Wheezes, Rales or Rhonchi
Cardiac: Regular Rhythm and S1/S2
GI: Soft, Nontender and Nondistended
Musculoskeletal: No Clubbing, No Cyanosis and No Edema
Neuro: Awake, Alert and Disoriented
Psych: Calm
A/P:
Toxic metabolic encephalopathy:
Multifactorial, likely UTI, renal failure, and medications
Continue IV antibiotics
Appreciate psychiatry eval
Updated daughter over the phone prior
Urinary tract infection:
Enterobacter cloacae in the urine
Blood cultures no growth
Continue IV Zosyn
Bipolar:
Psychiatry consult and adjustment of medications if needed per psychiatry
Discontinue Haldol, continue risperidone, and holding lithium
[place] level is 1.2--> repeat today 08/29 and better 0.5
MADONNA on CKD:
Off IV fluids
Encourage oral intake
Hyponatremia:
Sodium improved, 133 today
Continue to monitor
Prolonged QT
Latest EKG QTc decreasing to a more decent at 462
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
Neurology consult appreciated
Continue Cogentin
Hypertension:
Continue home antihypertensives
Diabetes mellitus type 2:
Continue insulin sliding scale
Continue long-acting insulin
DVT prophylaxis:
Heparin SQ
CODE STATUS:
Full code
Anticipated Discharge: 24 - 48 hours
Subjective/Interval History
-
Date of Service: August 30, 2023
Patient remains more alert today. Afebrile
Objective Data
-
Labs:
Laboratory Results
08/30/23
07:19
WBC Pending
Hgb Pending
Hct Pending
Plt Count Pending
Sodium Pending
Potassium Pending
Chloride Pending
Carbon Dioxide Pending
BUN Pending
Creatinine Pending
Glucose Pending
Calcium Pending
Vital Signs:
Vital Signs
Temp Pulse Resp BP Pulse Ox
97.6 F 51 18 151/65 99
08/29/23 23:55 08/29/23 23:55 08/29/23 23:55 08/29/23 23:55 08/29/23 23:55
I&O
08/29/23 08/30/23 08/31/23
06:59 06:59 06:59
Intake Total 1170 / 1170 780 / 780
Balance 1170 / 1170 780 / 780
[2023-08-30 09:11] LABS: Blood Urea Nitrogen 20 mg/dl (7-17); Calcium 9.7 mg/dl (8.4-10.2); Carbon Dioxide 29 mmol/L (22-30); Chloride 103 mmol/L (98-107); Estimated Creatinine Clearance 33 ml/min; Glucose 106 mg/dl (70-99); Lithium 0.5 mmol/L (0.6-1.2); Potassium 4.5 mmol/L (3.5-5.1); Sodium 133 mmol/L (135-145); eGFR 48.33
[2023-08-30 11:33] LABS: Glucose - Point of Care 226 mg/dl (70-99)
[2023-08-30] MEDS: NOVOLOG FLEXPEN-LOW RESISTANCE 2 UNITS SC (12:13)
--- NOTE | 2023-08-30 14:51 | W.PN.UPDATE ---
Update Note
Progress Note Update
Pt seen, alert/awake, in bed in upright position with tray table. States she ate earlier. Has fine tremor consistent with common side effect on [place]. No signs of rigidity or resting/parkinsonian tremor. Pt c/o rectal discomfort, possibly
related to constipation. Affect appropriate, mood stable. No signs of psychosis. Pt noted to have had a manic episode and hospitalization last year after [place] was stopped. Pt noted to be back on [place] 600 mg HS; held during this stay thus
far due to elevated level on admission 1.2. Today, [place] level 0.5 (in appropriate range for maintenance tx). Haldol was stopped due to EPS; Risperidone was continued.
Imp: Bipolar d/o by history, appears stable
Rec: resume [place] at lower dose, given above history of agapito/ family's report of recurrence of agapito when [place] held last year
continue Risperidone, taper Cogentin to BID (TID should not be necessary given the half-life)
will continue to follow
[2023-08-30 15:00] VITALS: BP 145/65
[2023-08-30 16:48] LABS: Glucose - Point of Care 84 mg/dl (70-99)
[2023-08-30 19:39] LABS: Glucose - Point of Care 186 mg/dl (70-99)
[2023-08-30] MEDS: LANTUS 0.0500000000000000028 UNITS SC (19:58)
[2023-08-30] MEDS: LITHOBID (EXTENDED RELEASE) 300 MG PO (21:06)
[2023-08-30 21:25] LABS: Glucose - Point of Care 152 mg/dl (70-99)
[2023-08-31 00:03] VITALS: BP 141/54
[2023-08-31] MEDS: ZOSYN 50 IV ×4 (03:07→21:18)
[2023-08-31 06:00] VITALS: BMI 20.9
[2023-08-31 07:10] VITALS: BP 137/58
[2023-08-31 07:20] LABS: Glucose - Point of Care 118 mg/dl (70-99)
[2023-08-31] MEDS: NOVOLOG FLEXPEN-LOW RESISTANCE SC (09:26)
[2023-08-31] MEDS: HEPARIN 5000 UNITS SC ×2 (09:31→21:15)
[2023-08-31] MEDS: COGENTIN 0.5 MG PO ×2 (09:31→21:15)
[2023-08-31] MEDS: DITROPAN 5 MG PO ×2 (09:31→21:14)
[2023-08-31] MEDS: TENORMIN 25 MG PO (09:31)
[2023-08-31] MEDS: REFRESH EYE DROPS (PF) 1 DROPS BOTH EYES (09:32)
--- NOTE | 2023-08-31 10:28 | W.PN.HOSP.TC ---
Today's Communication/Plan
-
Continue IV antibiotics. PT OT eval.
Assessment / Plan
Assessment / Plan
Physical exam:
General: Chronically ill
HEENT: Normocephalic, Atraumatic and Moist Mucous Membranes
Respiratory: Clear to Auscultation; Negative Wheezes, Rales or Rhonchi
Cardiac: Regular Rhythm and S1/S2
GI: Soft, Nontender and Nondistended
Musculoskeletal: No Clubbing, No Cyanosis and No Edema
Neuro: Awake, Alert and Disoriented
Psych: Calm
A/P:
Toxic metabolic encephalopathy:
Multifactorial, likely UTI, renal failure, and medications
Improving
Continue IV antibiotics
Appreciate psychiatry eval
Updated daughter over the phone prior
PT OT recommends skilled rehab
surgery manager working on skilled rehab but needs Auth
Urinary tract infection:
Enterobacter cloacae in the urine
Blood cultures no growth
Continue IV Zosyn (had to be switched according to sensitivity) and will switch to oral probably tomorrow
Bipolar:
Psychiatry consult and adjustment of medications if needed per psychiatry
Discontinue Haldol, continue risperidone, and initially held lithium but now restarted by psychiatry at a lower dose given concerns recurrence of manic episodes whenever lithium has been hold in the past.
[place] level is 1.2--> repeat on 08/29 and better 0.5
MADONNA on CKD:
Off IV fluids
Encourage oral intake
Hyponatremia:
Sodium improved, 133 last time checked
Continue to monitor
Prolonged QT
Latest EKG QTc decreasing to a more decent at 462
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
Neurology consult appreciated
Continue Cogentin
Hypertension:
Continue home antihypertensives, atenolol 25 mg p.o. daily
Diabetes mellitus type 2:
Continue insulin sliding scale
Continue long-acting insulin, insulin glargine 5 units daily.
DVT prophylaxis:
Heparin SQ
CODE STATUS:
Full code
Anticipated Discharge: 24 - 48 hours
Subjective/Interval History
-
Date of Service: August 31, 2023
Patient remains alert. No behavioral issues. Afebrile.
Objective Data
-
Vital Signs:
Vital Signs
Temp Pulse Resp BP Pulse Ox
98.3 F 62 16 137/58 96
08/31/23 07:10 08/31/23 09:31 08/31/23 07:10 08/31/23 09:31 08/31/23 07:10
I&O
08/30/23 08/31/23 09/01/23
06:59 06:59 06:59
Intake Total 780 / 780 1150 / 1150
Balance 780 / 780 1150 / 1150
Review of Systems
-
Unable to obtain full review of systems at this time due to: Dementia
--- NOTE | 2023-08-31 11:57 | W.PN.UPDATE ---
Update Note
Progress Note Update
Pt seen, sitting up in bed, in no distress, alert, calm, cooperative, sensorium appears intact. Mood/affect stable. Offers no complaints, asking when she can be discharged. No signs of agapito or psychosis. Restarted lower dose of [place] last
night.
Imp: Bipolar d/o, with history of last manic episode 2022, appears stable
Rec: [place] resumed at lower dose, given family's report of recurrence of agapito when [place] was held last year
continue Risperidone, continue Cogentin to BID
Return to outpatient psych med mgt when medically cleared
will follow
[2023-08-31 11:58] LABS: Glucose - Point of Care 188 mg/dl (70-99)
[2023-08-31] MEDS: NOVOLOG FLEXPEN-LOW RESISTANCE 1 UNITS SC ×2 (12:21→17:04)
[2023-08-31 15:02] VITALS: BP 127/53
[2023-08-31 16:58] LABS: Glucose - Point of Care 163 mg/dl (70-99)
[2023-08-31] MEDS: LITHOBID (EXTENDED RELEASE) 300 MG PO (21:14)
[2023-08-31 21:36] LABS: Glucose - Point of Care 170 mg/dl (70-99)
[2023-08-31] MEDS: LANTUS 0.0500000000000000028 UNITS SC (21:40)
[2023-08-31 23:58] VITALS: BP 137/59
[2023-09-01] MEDS: ZOSYN 50 IV ×2 (03:50→11:21)
[2023-09-01 07:55] VITALS: BP 136/51
[2023-09-01 08:25] LABS: Glucose - Point of Care 100 mg/dl (70-99)
[2023-09-01] MEDS: NOVOLOG FLEXPEN-LOW RESISTANCE SC ×2 (08:40→12:26)
[2023-09-01] MEDS: REFRESH EYE DROPS (PF) 1 DROPS BOTH EYES (09:03)
[2023-09-01] MEDS: TENORMIN 25 MG PO (09:03)
[2023-09-01] MEDS: ASPIR LOW (ENTERIC COATED) 81 MG PO (09:04)
[2023-09-01] MEDS: COGENTIN 0.5 MG PO (09:04)
[2023-09-01] MEDS: DITROPAN 5 MG PO (09:04)
[2023-09-01] MEDS: HEPARIN 5000 UNITS SC (09:04)
--- NOTE | 2023-09-01 11:35 | W.PN.HOSP.TC ---
Addendum entered and electronically signed by Madeleine Banegas MD 09/02/23 12:53:
# acute metabolic encephalopathy
Addendum entered and electronically signed by Madeleine Banegas MD 09/01/23 15:29:
total DC time 35 min
Patient discharged home with home health
Original Note:
Today's Communication/Plan
-
see A/P
PT to reevaluate pt today and if pt is able to take a few steps, daughter would like to take pt home (she has home care)
Assessment / Plan
Assessment / Plan
A/P:
# Toxic metabolic encephalopathy, Multifactorial, likely UTI, renal failure, and medications
MS has improved and now back to baseline
Appreciate psychiatry eval
PT OT recommends skilled rehab
corporate compliance manager working on skilled rehab but needs Auth
# Urinary tract infection:
Enterobacter cloacae in the urine
Blood cultures no growth
Continue IV Zosyn (had to be switched according to sensitivity), can be switched to oral Levaquin upon discharge
# Bipolar:
Psychiatry consult and adjustment of medications if needed per psychiatry
Discontinue Haldol, continue risperidone, and initially held lithium but now restarted by psychiatry at a lower dose given concerns recurrence of manic episodes whenever lithium has been hold in the past.
[place] level is 1.2 -> repeat on 08/29 and better 0.5
# Mild Hyponatremia:
Sodium was at 133
Continue to monitor
# Prolonged QT, resolved
Last EKG with QTc at 462
# History of drug-induced parkinsonism/history of meningioma/history of left eye blindness:
Neurology consult appreciated
Continue Cogentin
# Hypertension:
Continue home antihypertensives, atenolol 25 mg p.o. daily
# Diabetes mellitus type 2:
Continue insulin sliding scale
Continue long-acting insulin, insulin glargine 5 units daily.
DVT prophylaxis: Heparin SQ
CODE STATUS: Full code
DW RN
DW CM
updated daughter on the phone
total time spent 51 min
Anticipated Discharge: Within 24 hours
Subjective/Interval History
-
Date of Service: September 01, 2023
Objective Data
-
Vital Signs:
Vital Signs
Temp Pulse Resp BP Pulse Ox
37.2 C 55 16 136/51 99
09/01/23 07:55 09/01/23 09:03 09/01/23 07:55 09/01/23 09:03 09/01/23 07:55
I&O
08/31/23 09/01/23 09/02/23
06:59 06:59 06:59
Intake Total 1150 / 1150 1190 / 1190
Balance 1150 / 1150 1190 / 1190
Review of Systems
-
All other systems: Reviewed and negative
Physical Exam
-
General: Well Developed, Well Nourished, No Apparent Distress and Comfortable
HEENT: Normocephalic and Atraumatic
Respiratory: Clear to Auscultation and Non Labored Respirations; Negative Accessory Resp Muscle Use
Cardiac: Regular Rhythm and S1/S2
GI: Soft, Nontender, Nondistended and Normal Bowel Sounds
Neuro: Awake
Psych: Calm and Intact Judgement/Insight (somewhat)
Data Reviewed
-
Labs: Labs Reviewed by me
[2023-09-01 12:04] LABS: Glucose - Point of Care 97 mg/dl (70-99)
[2023-09-01 12:49] VITALS: BP 129/60; PULSE 54; O2SAT 98
[2023-09-01 12:54] VITALS: BP 129/60; PULSE 53; O2SAT 98
[2023-09-01 14:45] VITALS: BP 132/64
--- NOTE | 2023-09-01 14:58 | CM ---
Addendum entered by Bridget Miles 09/01/23 15:13:
Daughter Adrianna requesting prescriptions be sent to [facility], CM spoke with pharmacy, will fill scripts at [facility] in [place].
Original Note:
CM reviewed chart, Per PT, patient able to ambulate with an assist of one today, recommending home with 24/7 caregiver. CM spoke with patients daughter Nirmala and Adrianna on the phone, referral made to [facility]. Daughter requesting wheelchair van
transport, telephone number provided to daughter Adrianna for payment, 4:00-4:30 p.m. transport time. CM discussed transportation time with patient via wheelchair, patient appeared upset daughters not able to transport. CM called patients daughter,
Adrianna, in room with patient, to discuss wheelchair transport, discussed patients caregiver, T, will be there waiting for patient, daughter discussed patient has taken wheelchair van multiple times. CM reviewed IMM with daughter Nirmala on phone, will
email to [email or web address]. CM will continue to follow for discharge planning needs.
Plan; home with [facility] and / caregiver, 4:00-4:30 wheelchair transport.
--- NOTE | 2023-09-01 15:16 | W.DCSUMMARY ---
Discharge Summary
Discharge Data
Date of Admission: 08/26/23
Date of Discharge: 09/01/23
-
Pending Results: No
Hospital Course
Principal Diagnosis:
Confusion/acute metabolic encephalopathy, likely due to UTI
Chronic Diagnoses:�
Bipolar mood disorder
History of drug-induced parkinsonism
history of meningioma
history of left eye blindness
Hypertension
Diabetes mellitus type 2
Consultations:�
Psychiatry
Procedures:�
None
Clinical course:�
This is a 88-year-old female, with past medical history as stated above, who presented with confusion, garbled speech, generalized weakness, and poor appetite.
Problem 1:
Confusion/acute metabolic encephalopathy, likely due to UTI.
Her mental status improved during her hospital stay and returned to baseline following treatment of her urinary tract infection.
Problem 2:
Urinary tract infection with Enterobacter cloacae.
She received IV Zosyn while in the hospital, and this was switched to oral Levaquin upon discharge to continue for 4 more days.
Problem 3:
Bipolar mood disorder.
Her mood has been stable.
She was sent home on the following psychotropic medications:
Benztropine increased from 0.5 daily to twice daily.
Risperdal decreased from 1 mg to 0.5 mg at night.
Continue prior to admission lithium dose at 300 mg at bedtime.
As for the rest of her medical problems, they were stable during her hospital stay.
Discharge Plan
-
Patient Disposition: Home with Home Care
Discharge Diagnosis/Procedures: Confusion (resolved); urinary tract infection with Enterobacter cloacae; history of Bipolar mood disorder
Condition: Fair
Diet: As tolerated and Other diet
Additional Diets: soft and bite size food, thin liquid
Activity: As tolerated
Driving Restrictions: No driving
Referrals:
UNKNOWN - PT NOT,INTERVIEWE [Family Provider] - in less than 1 week
Additional Discharge Medication Instructions: Your Benztropine was increased from 0.5 daily to twice daily.
Your Risperdal was decreased from 1 mg to 0.5 mg at night.
Continue Levaquin for 4 more days
Prescriptions:
New
benztropine 0.5 mg Tablet
0.5 mg PO BID Qty: 60 0RF
levofloxacin 750 mg tablet
750 mg PO DAILY 4 Days Qty: 4 0RF
risperidone [Risperdal] 0.5 mg tablet
0.5 mg PO HS Qty: 30 0RF
Continued
insulin glargine [Lantus U-100 Insulin] 100 unit/mL Solution
5 unit SC DAILY@1900
trazodone 50 mg Tablet
25 mg PO HS PRN (Reason: insomnia)
atenolol 25 mg Tablet
25 mg PO DAILY
Patient Comments:
08/26/2023, last filled on 10/15/2022 for 90-day supply.
aspirin 81 mg Tablet,Delayed Release (Dr/Ec)
81 mg PO MOWEFR@0800
acetaminophen [Tylenol Extra Strength] 500 mg Tablet
500 mg PO DAILYPRN PRN (Reason: mild pain)
lithium carbonate 300 mg Capsule
300 mg PO QPM
ibuprofen 200 mg Tablet
400 mg PO DAILYPRN PRN (Reason: mild pain)
oxybutynin chloride 5 mg Tablet
5 mg PO BID
Systane (PF) 0.4-0.3 % Dropperette
1 drp BOTH EYES DAILY
Discontinued
haloperidol 0.5 mg Tablet
0.25 mg PO BID
benztropine 0.5 mg Tablet
0.5 mg PO QPM
risperidone 1 mg Tablet
1 mg PO QPM
Discharge Orders:
Discharge Patient (As Directed); Ordered 09/01/23
Ordered By: Madeleine Banegas
Discharge Date and Time
Print Language: ARMENIAN
--- NOTE | 2023-09-01 17:26 | CM ---
Call received from [facility]/Transport that patient's address in chart which is where they thought the were transporting patient to [facility], is an old address where she no longer lives. She stated they were given another address as
[address] in [place]. I did call patient's daughter , Nirmala Scott, and confirmed that her correct address is [facility] [place], [address], [address]. She stated she lives in the [facility] which is on the corner of
[address] She stated that she had given the milk pickup truck driver the patient's care givers phone number. Called back to [facility] confirmed correct address is the [address] , in [place] address. Update to Admissions so correct address can be
updated in [facility].
--- NOTE | 2023-09-02 09:53 | PN.CDI ---
CDI
- -
CDI:
Physician Documentation Request
Admit Date: 08/26/23 16:07
Dear Doctor Bassam,
08/27-08/31 Progress notes state 'Toxic metabolic encephalopathy, Multifactorial, likely UTI, renal failure, and medications'
08/31 discharge summary states 'Confusion/acute metabolic encephalopathy, likely due to UTI.'
In an attempt to clarify potentially conflicting documentation, please clarify the type of encephalopathy:
Toxic metabolic encephalopathy
acute metabolic encephalopathy
Other
Use of terms such as suspected, likely, concern for, or probable (associated with a specific diagnosis that is being evaluated, monitored, or treated as if it exists) are acceptable and can be coded in the inpatient setting, when documented at the
time of discharge.
Thank you,
Sahara Wilson RN, BSN
CDI Specialist
tiger text
Please use your independent medical judgment in providing your response.
== END 2023-09-01 16:43 | disposition home health service (06) | DRG 689 ==
LOC: 4 EAST ACU 16:07
PROVIDERS: Physician Assistant; Registered Nurse; ADMITTING PHYSICIAN Hospitalist; ATTENDING PHYSICIAN Internal Medicine; CONSULT PHYSICIAN Psychiatry & Neurology Psychiatry; EMERGENCY PHYSICIAN Emergency Medicine; OTHER PHYSICIAN Psychiatry & Neurology Neurology
DX: N39.0 Urinary tract infection, site not specified (principal); G93.41 Metabolic encephalopathy; E87.1 Hypo-osmolality and hyponatremia; G21.19 Other drug induced secondary parkinsonism; B96.89 Other specified bacterial agents as the cause of diseases classified elsewhere; E86.1 Hypovolemia; I12.9 Hypertensive chronic kidney disease with stage 1 through stage 4 chronic kidney disease, or unspecified chronic kidney disease; E11.22 Type 2 diabetes mellitus with diabetic chronic kidney disease; N18.32 Chronic kidney disease, stage 3b; F31.9 Bipolar disorder, unspecified
CPT/HCPCS: 70450; 80048; 80053; 80178; 81003; 81015; 82607; 82728; 82746; 82962; 83036; 83605; 84443; 85025; 85027; 87040; 87077; 87086; 87186; 92526; 92610; 93005; 96374; 97163; 97167; 97530; 97535; 99285

== ENCOUNTER 2024-02-16 22:14 | Inpatient (IN) | payer OTHER, SELFPAY ==
[2024-02-16] VITALS (7 sets, daily range): BP systolic 113–185; BP diastolic 58–77; BMI 20.6; BMI 21.4
[2024-02-16 14:25] LABS: Glucose - Point of Care 115 mg/dl (70-99)
[2024-02-16 14:49] LABS: % Basophils 0.3 % (0-2); % Eosinophils 0.8 % (0-6); % Immature Granulocytes 0.3 % (0-0.5); % Lymphocytes 22.2 % (20.5-51.1); % Monocytes 8.3 % (1.7-9.3); % Neutrophils 68.1 % (42.2-75.2); Absolute Eosinophils 0.1 10^3/uL (0-0.7); Absolute Lymphocytes 1.3 10^3/uL (1.2-3.4); Absolute Monocytes 0.5 10^3/uL (0.1-0.6); Hematocrit 34.1 % (37.0-47.0); Hemoglobin 11.3 g/dL (12.0-16.0); Mean Corp Hgb Conc. 33.1 g/dL (33.0-37.0); Mean Corpuscular Volume 87.4 fL (81.0-99.0); Nucleated Red Blood Cells % 0 %; Platelet Count 148 10^3/uL (130-400); Red Cell Dist. Width 14.1 % (11.5-14.5); White Blood Cell Count 5.9 10^3/uL (4.8-10.8)
[2024-02-16 15:03] LABS: ALT (SGPT) 20 U/L (0-35); AST (SGOT) 28 U/L (14-36); Albumin 3.8 g/dl (3.5-5.0); Alkaline Phosphatase 94 U/L (38-126); Blood Urea Nitrogen 24 mg/dl (7-17); Calcium 10.1 mg/dl (8.4-10.2); Carbon Dioxide 25 mmol/L (22-30); Chloride 104 mmol/L (98-107); Glucose 94 mg/dl (70-99); Potassium 4.5 mmol/L (3.5-5.1); Sodium 139 mmol/L (135-145); Total Bilirubin 0.4 mg/dl (0.2-1.3); Total Protein 6.6 g/dl (6.3-8.2); eGFR 48.33
[2024-02-16 15:17] LABS: Troponin I < 0.012 ng/ml
--- NOTE | 2024-02-16 18:26 | ED.GENMED ---
History of Present Illness
General
Chief Complaint: Change in Mental Status
Source: family (Daughter)
Exam Limitations: altered mental status
Time Seen by Provider: 02/16/24 18:02
History of Present Illness
History of Present Illness:
This is a 88 year old female that comes in with c/o change in mental status. Daughter states that she has had slurred speech on and off but the past couple of days. States that today she was unable to get OOB and normally she can do this. States
that over the past couple of weeks she has been getting worse. States that she has been more confused the past few days. States that she did have some nausea and she frequently has abd discomfort and will c/o this but not recently. Denies any fever,
chills, chest pain, abd pain, vomiting, diarrhea, headache, dizziness, urinary burning.
Past History
Past History
ED Past Medical History: Arrthythmia (WPW), HTN, IDDM, Psychiatric (Bipolar, Depression) and Other (IBS, Parkinson's , UTI, Blind Left eye, Diverticulitis)
ED Past Surgical History: Cholecystectomy and Gynecological (Hysterectomy)
Social History
Tobacco: Former smoker
Alcohol: None
Personal:
Living: with family (ocular care technologist)
Employment: Retired
Review of Systems
Review of Systems
Other source history: family
All Other Systems: ROS reviewed and negative except as documented in HPI and ROS
Constitutional: Reports no symptoms; Denies fever or chills
EENT: Reports no symptoms
Respiratory: Reports no symptoms; Denies cough or trouble breathing
Cardiac: Reports no symptoms; Denies chest pain
ABD/GI: Reports no symptoms; Denies abdominal pain, nausea, vomiting or diarrhea
: Reports no symptoms; Denies dysuria, frequency or urgency
Musculoskeletal: Reports no symptoms
Neurological: Reports weakness (Unable to get OOB today, Change in mental status garbled speech. )
Psychiatric: Reports no symptoms
Phy Exam
General Physical Exam
General Presentation: no apparent distress
General age: appears stated age
General Skin: warm and dry
General Habitus: elderly
General Mental: confused (More then her normal)
General Hydration: appears well hydrated
ENT Exam
ENT Exam: TM's normal, pharynx normal and neck supple
Eye Exam
Eye Exam: EOMI
Cardiovascular Exam
Cardiovascular Exam: no edema, normal peripheral pulses and bradycardia
Pulmonary Exam
Pulmonary Exam: no respiratory distress, chest non tender, no rhonchi, no wheezing, no cough and other (Few crackles at bases)
Gastrointestinal Exam
Gastrointestinal Exam: normal bowel sounds, non tender, soft, no organomegaly, no pulsatile mass and non distended
Musculoskeletal Exam
Musculoskeletal Exam: full ROM and no edema
Skin Exam
Skin Exam: normal color, warm/dry, no rash and no petechia
Psychiatric Exam
Psychiatric Exam: normal mood/affect
Course
Orders/Labs/Results
Orders:
Orders
02/16/24 14:26
Electrocardiogram (*1) Urgent
Reason for Study: Other
Other Reason for Exam: change in mental status
02/16/24 14:27
EKG- Treatment ONCE
02/16/24 14:42
CMP [Comprehensive Metabolic Panel] Urgent
Complete Blood Count/With Diff Urgent
Troponin I Urgent
02/16/24 18:16
CT Head W/o Iv Contrast Urgent
Comment:
Reason For Exam: Slurred words, Increased confusion
Straight cath- Treatment ONCE
0.9% Sodium Chloride 1000 ml [Nss] 1,000 ml IV BOLUS
02/16/24 18:32
CR Chest - 2 Views Urgent
Comment:
Reason For Exam: SOB
02/16/24 18:49
COVID-19 Antigen Urgent
Source: Nasal Swab
Urinalysis Reflex To Culture Urgent
Date Specimen was Collected: 02/16/24
Time Specimen was Collected: 18:29
Urine Microscopic Reflex Cult Urgent
Urine Culture Urgent
JOVANY Source: U
Specimen Description:
Date Specimen was Collected: 02/16/24
Time Specimen was Collected: 18:29
02/16/24 20:29
CefTRIAXone [Rocephin] 1,000 mg IV NOW STA
Abnormal Lab Results
02/16/24 02/16/24 02/16/24
14:24 14:42 18:49
RBC 3.90 L 10^6/uL
(4.20-5.40)
Hgb 11.3 L g/dL
(12.0-16.0)
Hct 34.1 L %
(37.0-47.0)
MPV 11.0 H fL
(7.4-10.4)
BUN 24 H mg/dl
(7-17)
Creatinine 1.1 H mg/dL
(0.6-1.0)
Ur Occult Blood Reflex 2+ A
(Negative)
Urine Nitrite (Reflex) Positive A
(Negative)
Leukocyte Esterase Rfl 2+ A
(Negative)
Urine RBC 3-6 A /HPF
(0-2)
Urine WBC (Reflex) 11-15 A /HPF
(0-5)
Urine Bacteria (Reflex) Many A
(Negative)
POC Glucose 115 H mg/dl
(70-99)
02/16/24 14:42
02/16/24 14:42
H/H slightly low. Dehydration. Troponin <0.012, Urine positive for infection. COVID negative.
Vital Signs
Initial and Last Documented VS:
Initial Vital Signs
Temp Pulse Resp BP Pulse Ox
97.8 F 43 15 135/67 98
02/16/24 14:16 02/16/24 14:16 02/16/24 14:16 02/16/24 14:16 02/16/24 14:16
Last Documented Vital Signs
Temp Pulse Resp BP Pulse Ox
97.8 F 46 18 154/73 99
02/16/24 14:16 02/16/24 19:47 02/16/24 16:25 02/16/24 19:00 02/16/24 19:30
MDM/Problems Addressed
Differential Diagnosis Includes:
Progression of Parkinson's, CVA, UTI
MDM/Problems Addressed:
This is a 88 year old female that is brought in by family with c/o change in mental status. States that she has been more confused the past couple of days and that her speech is very garbled. States that she has been garbled before on and off but
this is worse. States that this got worse over the weekend.
will get labs, URine, CT head, chest X-ray and test for COVID.
Chronic conditions affecting care:
UTi, Parkindon's
Acute Exacerbation and/or Progression of Chronic Illness:
Parkinson's, UTI history
*Radiology
Radiology exam reviewed: radiology read reviewed (CT head-NO evidence of acute intracranial abnomality. )
*Pulse Oximetry
Patient hypoxic: no
*EKG
Interpreted by ED Provider?: Yes
*Parking Lot Laborer Interpretation
Rate: bradycardiac
Heart Rate: 40
Rhythm: sinus (Bill cardia)
*Critical Care Note
Total Time (30-74mins, 75-104mins- exclusive of procedures): Not Applicable
ED Attending Note
-
Portions of this chart may have been created with voice recognition software.� Occasional wrong word or��sound alike� substitutions may have occurred due to the inherent limitations of voice recognition software.
Discharge Plan
Departure
Patient Disposition: Admit
Date of Disposition: 02/16/24
Time of Disposition: 20:41
Admit to: Med/Surg
Presentation/result/management discussed w/ accepting MD/DO: Hospitalist
Patient with high blood pressure during this ER visit?: Yes
Condition: Fair
Covid-19: Negative COVID-19
Discharge Problem:
Altered mental status, Acute UTI (urinary tract infection)
Prescriptions:
No Action
insulin glargine [Lantus U-100 Insulin] 100 unit/mL Solution
5 unit SC HS
trazodone 50 mg Tablet
25 mg PO HSPRN PRN (Reason: insomnia)
atenolol 25 mg Tablet
25 mg PO DAILY
aspirin 81 mg Tablet,Delayed Release (Dr/Ec)
81 mg PO SUTUTH
lithium carbonate 300 mg Capsule
300 mg PO QPM
oxybutynin chloride 5 mg Tablet
5 mg PO BID
benztropine 0.5 mg Tablet
0.5 mg PO BID Qty: 60 0RF
risperidone [Risperdal] 0.5 mg tablet
0.5 mg PO HS Qty: 30 0RF
haloperidol 0.5 mg Tablet
0.25 mg PO BID
Referrals:
UNKNOWN - PT DOES,NOT KNOW [Family Provider] -
Interventions
Interventions:
*Risk Screen - Suicide Last Done: 02/16/24 18:52
*General Assessment Last Done: 02/16/24 18:52
*Neglect/Abuse Screening Last Done: 02/16/24 18:52
*ED COVID-19 Vaccine History Last Done: 02/16/24 18:52
Discharge Date and Time
Print Language: JAPANESE
[2024-02-16] MEDS: NSS 1000 IV ×2 (18:45→23:19)
[2024-02-16 19:12] LABS: Urine Albumin Trace (Neg - Trace); Urine Bilirubin Negative (Negative); Urine Character Very Cloudy (Clear); Urine Color Yellow; Urine Glucose Negative (Negative); Urine Ketone Negative (Negative); Urine Leukocyte 2+ (Negative); Urine Nitrite Positive (Negative); Urine Occult Blood 2+ (Negative); Urine Specific Gravity 1.015 (<1.030); Urine Urobilinogen Negative (Neg - 1+); Urine pH 6.5 (5.0-9.0)
[2024-02-16 19:16] LABS: COVID-19 Antigen Negative (Negative)
[2024-02-16 19:17] LABS: Urine Bacteria Many (Negative)
--- NOTE | 2024-02-16 19:30 | EDRN ---
Family notified this RN of wound to pt.'s anterior lower extremity, states, 'maybe it happened during ambulance transfer, we don't know'. RN notes skin tear at site, dried blood noted but no active bleeding. Wound cleansed and dressing applied.
--- NOTE | 2024-02-16 21:13 | HPS.HSE ---
Family Physician
-
Family Physician: NOT KNOW UNKNOWN - PT DOES
Chief Complaint
-
AMS
History of Present Illness
HPI
88F HX IDDM, Bipolar mood disorder, HX drug-induced parkinsonism seen at ER foe AMS :
- Daughter reports slurred speech on and off for last couple of days
- Today she was unable to get OOB and normally she can do this.
- Over the past couple of weeks she has been more confused the past few days
- some nausea and she frequently has abd discomfort
ROS:
Denies any fever, chills, chest pain, abd pain, vomiting, diarrhea, headache, dizziness, urinary burning.
Medical History
Past Medical History
Past Medical History: Reports HTN, IDDM and Psychiatric (Bipolar mood disorder - depression, paranoid/bipolar disorder,)
Additional Past Medical History:
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
Past Surgical History: Reports Other
Additional Past Surgical History:
Cholecystectomy
Social History
Tobacco: Non-smoker
Alcohol: None
Drug: None
Personal: Single
Family History
Family History: Not pertinent
Allergies / Home Medications
Allergies reflects when Allergies were last updated in [employer].
Home Medications with original date entered in [employer]
Allergy/Medication List:
Allergies
Allergy/AdvReac Type Severity Reaction Status Date / Time
No Known Allergies Allergy Verified 08/26/23 12:44
Home Medications
acetaminophen 500 mg tablet (Tylenol Extra Strength) 500 mg PO DAILYPRN PRN mild pain 08/26/23
aspirin 81 mg tablet,delayed release 81 mg PO MOWEFR@0800 08/26/23
atenolol 25 mg tablet 25 mg PO DAILY 08/26/23
benztropine 0.5 mg tablet 0.5 mg PO QPM 08/26/23
haloperidol 0.5 mg tablet 0.25 mg PO BID 08/26/23
ibuprofen 200 mg tablet 400 mg PO DAILYPRN PRN mild pain 08/26/23
insulin glargine 100 unit/mL subcutaneous solution (Lantus U-100 Insulin) 5 unit SC DAILY@1900 08/26/23
lithium carbonate 300 mg capsule 300 mg PO QPM 08/26/23
oxybutynin chloride 5 mg tablet 5 mg PO BID 08/26/23
peg 400-propylene glycol (PF) 0.4 %-0.3 % eye drops in a dropperette (Systane (PF)) 1 drp BOTH EYES DAILY 08/26/23
risperidone 1 mg tablet 1 mg PO QPM 08/26/23
trazodone 50 mg tablet 25 mg PO HS PRN insomnia 08/26/23
Review of Systems
-
Constitutional: Reports Fatigue
EENT: Reports No Symptoms
Respiratory: Reports No Symptoms
Cardiac: Reports No Symptoms
Abdomen/GI: Reports No Symptoms
: Reports No Symptoms
Musculoskeletal: Reports No Symptoms
Skin: Reports No Symptoms
Neurological: Reports Weakness and Other (Slurred speech)
Endocrine: Reports No Symptoms
Hematologic/Lymphatic: Reports No Symptoms
Psych: Reports No Symptoms
Physical Exam
Vital Signs
Vital Signs
Temp Pulse Resp BP Pulse Ox
97.8 F 46 18 154/73 99
02/16/24 14:16 02/16/24 19:47 02/16/24 16:25 02/16/24 19:00 02/16/24 19:30
Physical Exam
General: Well Developed, Well Nourished and No Apparent Distress
HEENT: NormoCephalic, Moist mucous membranes and Atraumatic
Respiratory: Clear
Cardiac: S1/S2 and Regular Rhythm; No Murmur or Rub
GI: Soft, Non Tender, Non Distended and Normal Bowel Sounds; No Organomegaly
Rectal: Deferred by Provider
Musculoskeletal: No Clubbing, No Cyanosis and No Edema
Skin: No Rash
Neuro: Awake, Oriented, AO x 3, Nonfocal/grossly intact and Slurred Speech
Psych: Calm
Laboratory Results
-
02/16/24 14:42
02/16/24 14:42
Laboratory Results
Total Bilirubin 0.4 mg/dl (0.2-1.3) 02/16/24 14:42
AST 28 U/L (14-36) 02/16/24 14:42
ALT 20 U/L (0-35) 02/16/24 14:42
Alkaline Phosphatase 94 U/L (38-126) 02/16/24 14:42
Troponin I < 0.012 ng/ml 02/16/24 14:42
Data Reviewed
-
CT Scan: Report Reviewed by me
Lab Data: Labs Reviewed by me
Old Records: Reviewed
Impression/Plan
-
Data
nl WCC
Hgb 11.3
BUN 24
Cr 1.1
NEG TPNI
POS UA for UTI
NEG HCT
Last hospitalist admission: Date of Admission: 08/26/23 - Date of Discharge: 09/01/23
Principal Diagnosis:
Confusion/acute metabolic encephalopathy, likely due to UTI
ASSESSMENT & PLAN
AMS due to multifactorial TME due to UTI , MADONNA
HX Enterobacter cloacae in the urine
- IVF NS
- Empiric IV Zosyn in place of CFTX
- UA refex to UCx
- aspiration precaution till speech to evaluate
- PT/OT
MADONNA pre renal due to UTI and porr PO
- IV NS and f/u Cr
HX Bipolar:
- c/w SUPERVISOR LIQUEFACTION risperidone
- check Li level and held lithium - resume Li as soon as possible if Li level is acceptable
HX drug-induced parkinsonism/history of meningioma/history of left eye blindness:
- on SUPERVISOR LIQUEFACTION Cogentin
Benign Hypertension:
Chr arun cardia on BB
- c/w atenolol 25 mg p.o. daily
T2DM
- add ISS low
- c/w insulin glargine 5 units daily.
Known HX
HX drug-induced parkinsonism with tremor
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
IBS
Bradycardia
tremor
DVT prophylaxis: Heparin SQ
CODE STATUS: Full code
IP TLM
[2024-02-16] MEDS: ROCEPHIN 1000 MG IV (21:22)
[2024-02-16 21:53] LABS: Lithium 1.2 mmol/L (0.6-1.2)
--- NOTE | 2024-02-16 22:12 | EDRN ---
Pt. has been in sinus bradycardia, w/ HR ranging from 39-50s. Pt is asymptomatic, denies feeling dizzy/lightheaded. Family reports pt. has chronic bradycardia, 'but is usually in 40s-50s'. Admitting is aware as pt. is admitted Tele, per admitting,
pt. does not need to be upgraded at this time as pt. is asymptomatic, this RN to monitor, will alert admitting if pt. becomes symptomatic.
--- NOTE | 2024-02-16 23:00 | PTCARENOTE ---
pt admitted to room 339-2 at approx 2240, pulled over from stretcher to bed with assist x2. VSS, placed on telemetry monitoring, sinus arun with 1st degree heart block and prolonged qt. bed alarm activated for safety. b/l heel foams placed for
prevention. pt oriented to room, call sanderson within reach.
[2024-02-16] MEDS: ZOSYN 50 IV (23:27)
[2024-02-16] MEDS: RISPERDAL 0.5 MG PO (23:28)
[2024-02-16 23:33] LABS: Glucose - Point of Care 80 mg/dl (70-99)
[2024-02-17] VITALS (11 sets, daily range): BP systolic 96–176; BP diastolic 42–87; PULSE 63; BMI 21.6
[2024-02-17 05:30] LABS: Glucose - Point of Care 67 mg/dl (70-99)
[2024-02-17] MEDS: DEXTROSE 50% SYRINGE 12.5 GRAMS IV (05:33)
[2024-02-17] MEDS: ZOSYN 50 IV ×3 (05:33→17:45)
[2024-02-17 05:49] LABS: Glucose - Point of Care 147 mg/dl (70-99)
--- NOTE | 2024-02-17 05:50 | PTCARENOTE ---
AM glucose 67, pt asymptomatic. pt NPO, refer to MAR for dextrose admin. glucose re-check reading 147. pt remains asymptomatic
[2024-02-17 06:24] LABS: Hematocrit 29.8 % (37.0-47.0); Hemoglobin 9.7 g/dL (12.0-16.0); Mean Corp Hgb Conc. 32.6 g/dL (33.0-37.0); Mean Corpuscular Hgb 29.1 pg (27.0-31.0); Mean Corpuscular Volume 89.5 fL (81.0-99.0); Mean Platelet Volume 11.6 fL (7.4-10.4); Platelet Count 130 10^3/uL (130-400); Red Blood Cell Count 3.33 10^6/uL (4.20-5.40); Red Cell Dist. Width 14.2 % (11.5-14.5); White Blood Cell Count 4.5 10^3/uL (4.8-10.8)
[2024-02-17 06:44] LABS: Blood Urea Nitrogen 23 mg/dl (7-17); Calcium 9.5 mg/dl (8.4-10.2); Carbon Dioxide 26 mmol/L (22-30); Chloride 107 mmol/L (98-107); Estimated Creatinine Clearance 29 ml/min; Glucose 66 mg/dl (70-99); Sodium 139 mmol/L (135-145); eGFR 43.54
[2024-02-17 07:10] LABS: Potassium 4.2 mmol/L (3.5-5.1)
[2024-02-17 07:49] LABS: Glucose - Point of Care 91 mg/dl (70-99)
[2024-02-17 08:41] LABS: Glycohemoglobin (HgbA1c) 5.2 % (4.0-5.6)
[2024-02-17] MEDS: DITROPAN 5 MG PO ×2 (08:41→20:55)
[2024-02-17] MEDS: COGENTIN 0.5 MG PO ×2 (08:41→17:37)
[2024-02-17] MEDS: HEPARIN 5000 UNITS SC ×2 (08:42→20:55)
[2024-02-17] MEDS: HALDOL 0.25 MG PO ×2 (08:43→17:34)
[2024-02-17 09:46] LABS: Glucose - Point of Care 74 mg/dl (70-99)
--- NOTE | 2024-02-17 09:58 | W.PN.HOSP.TC ---
Today's Communication/Plan
-
Speech consult
Continue antibiotics
Stop atenolol, Lantus
TSH, cortisol
PT/OT
Assessment / Plan
Assessment / Plan
Gen-awake, alert, NAD
HEENT-NC, AT, anicteric, clear oral mm
Neck-supple
CV-reg, no M, +S1/S2
Lungs-clear B/L
Abd-soft, NT, ND
Ext-no edema
Musculoskeletal-no cyanosis, clubbing
Skin-warm and dry
Neuro-grossly non-focal
Psych-calm, cooperative
Acute TME -suspect related to possible infection. Spoke with daughter on the phone, she states that patient's speech has become more slurred over the past 3 days and she does get intermittent episodes of confusion and slurred speech over the years
especially with acute illnesses such as infection. CT head on admission was unremarkable. Clinically doubt stroke. Monitor for now.
Daughter states no changes to home medications recently. Patient has been compliant with all her home meds prior to admission.
Currently n.p.o., awaiting speech therapy consult.
Presumed UTI -continue empiric antibiotics pending culture.
Hypothermia -unclear if due to infection versus other etiology. Check a.m. cortisol, TSH.
Essential hypertension -stable.
DM 2 with hypoglycemia -glucose 66 this morning. Hold Lantus for now, use low resistance NovoLog scale. Hemoglobin A1c 5.2% but may not be reliable in the setting of chronic anemia.
Sinus bradycardia -hold atenolol.
Drug-induced Parkinson's
Bipolar disorder -continue home meds.
History of meningioma -compressing the left optic nerve with resultant chronic left eye blindness.
Chronic normocytic anemia -hemoglobin near baseline. Monitor for now.
Leukopenia -possibly due to infection versus other. Monitor for now.
IBS
Full code
Updated daughter on the phone.
Anticipated Discharge: > 48 hours
Subjective/Interval History
-
Date of Service: February 17, 2024
Patient seen and examined. Mumbling for me, speech is somewhat inaudible. No complaints.
Objective Data
-
Labs:
Laboratory Results
02/17/24
05:27
WBC 4.5 L
Hgb 9.7 L
Hct 29.8 L
Plt Count 130
Sodium 139
Potassium 4.2
Chloride 107
Carbon Dioxide 26
BUN 23 H
Creatinine 1.2 H
Glucose 66 L
Calcium 9.5
Vital Signs:
Vital Signs
Temp Pulse Resp BP Pulse Ox
94.4 F L 45 16 140/63 98
02/17/24 09:37 02/17/24 08:41 02/17/24 08:25 02/17/24 07:05 02/17/24 07:05
I&O
02/16/24 02/17/24 02/18/24
06:59 06:59 06:59
Intake Total 560 / 560
Balance 560 / 560
Review of Systems
-
Unable to obtain full review of systems at this time due to: Acuity
History Source: Patient
All other systems: Reviewed and negative
[2024-02-17] MEDS: NSS 1000 IV (11:03)
[2024-02-17 11:24] LABS: Cortisol, Random 6.1 ug/dl; TSH 1.57 uIU/ml (0.47-4.68)
[2024-02-17 12:05] LABS: Glucose - Point of Care 77 mg/dl (70-99)
[2024-02-17] MEDS: NSS (PRESERVATIVE FREE) 1 ML IV (12:56)
[2024-02-17] MEDS: CORTROSYN 0.25 MG IV (12:56)
--- NOTE | 2024-02-17 13:16 | PTOTSP ---
Speech Therapy Swallowing Assessment
Cognitive status is impacting patient's ability to effectively manipulate/control solid bolus. Patient tolerated puree and thin liquids with delayed but effective AP transfer/swallow and without over signs of aspiration.
Recommend
1. Begin diet of IDDSI 4/puree and thin liquids
2. Aspiration precautions
3. Supervision and assist to feed.
4. Meds with liquid as tolerated.
5. ST will follow and assess tolerance for advanced textures/baseline diet.
[2024-02-17 13:37] LABS: ACTH Stim Cortisol 0 Min 12.2 ug/dl
[2024-02-17 14:45] LABS: ACTH Stim Cortisol 30 Min 40.6 ug/dl
[2024-02-17 16:22] LABS: ACTH Stim Cortisol 60 Min 53.5 ug/dl
--- NOTE | 2024-02-17 17:01 | CM ---
Alert awake confused patient who lives with 24 hour client care representative Berny who is in room feeding pt.She lives in an apartment with 10 steps to enter.
She is assisted in all activities of daily living.She has 2 daughters Adrianna and Nirmala.She uses a walker.
Never had VN/SNF
Pharmacy [facility]
Will need PT OT evals for dc planing and confer with daughters .
[2024-02-17 17:07] LABS: Glucose - Point of Care 197 mg/dl (70-99)
[2024-02-17] MEDS: NOVOLOG FLEXPEN-LOW RESISTANCE 1 UNITS SC (18:09)
[2024-02-17] MEDS: RISPERDAL 0.5 MG PO (20:55)
[2024-02-17 21:29] LABS: Glucose - Point of Care 137 mg/dl (70-99)
[2024-02-18] MEDS: ZOSYN 50 IV ×5 (00:10→23:56)
[2024-02-18] MEDS: NSS 1000 IV ×2 (01:19→12:17)
[2024-02-18 03:30] LABS: Glucose - Point of Care 141 mg/dl (70-99)
[2024-02-18 03:52] VITALS: BP 147/66
[2024-02-18 06:05] LABS: Blood Urea Nitrogen 22 mg/dl (7-17); Calcium 9.7 mg/dl (8.4-10.2); Carbon Dioxide 23 mmol/L (22-30); Chloride 108 mmol/L (98-107); Estimated Creatinine Clearance 32 ml/min; Glucose 143 mg/dl (70-99); Potassium 4.4 mmol/L (3.5-5.1); Sodium 141 mmol/L (135-145); eGFR 48.33
[2024-02-18 07:11] LABS: Glucose - Point of Care 141 mg/dl (70-99)
[2024-02-18] MEDS: NOVOLOG FLEXPEN-LOW RESISTANCE SC (07:19)
[2024-02-18 07:46] VITALS: BP 123/58
[2024-02-18] MEDS: HEPARIN 5000 UNITS SC ×2 (08:44→20:48)
[2024-02-18] MEDS: HALDOL 0.25 MG PO ×2 (08:45→17:05)
[2024-02-18] MEDS: DITROPAN 5 MG PO ×2 (08:46→20:48)
[2024-02-18] MEDS: COGENTIN 0.5 MG PO ×2 (08:46→17:05)
[2024-02-18 11:54] LABS: Glucose - Point of Care 161 mg/dl (70-99)
[2024-02-18 12:02] VITALS: BP 138/57
[2024-02-18] MEDS: NOVOLOG FLEXPEN-LOW RESISTANCE 1 UNITS SC ×2 (12:34→18:13)
--- NOTE | 2024-02-18 12:43 | W.PN.HOSP.TC ---
Today's Communication/Plan
-
Continue antibiotics
Await cultures
Assessment / Plan
Assessment / Plan
Gen-awake, alert, NAD
HEENT-NC, AT, anicteric, clear oral mm
Neck-supple
CV-reg, no M, +S1/S2
Lungs-clear B/L
Abd-soft, NT, ND
Ext-no edema
Musculoskeletal-no cyanosis, clubbing
Skin-warm and dry
Neuro-grossly non-focal
Psych-calm, cooperative
Acute TME -suspect related to possible infection. Spoke with daughter on the phone, she states that patient's speech has become more slurred over the past 3 days and she does get intermittent episodes of confusion and slurred speech over the years
especially with acute illnesses such as infection. CT head on admission was unremarkable. Clinically doubt stroke. Monitor for now.
Daughter states no changes to home medications recently. Patient has been compliant with all her home meds prior to admission.
Pur�ed diet/thin liquids per speech therapy.
UTI -continue empiric antibiotics pending culture. Preliminary culture shows greater than 100,000 gram-negative bacilli.
Hypothermia -unclear if due to infection versus other etiology. Temperature is now normal. TSH normal. ACTH stim test normal.
Essential hypertension -stable.
DM 2 with hypoglycemia -glucose 143 this morning. Hold Lantus for now, use low resistance NovoLog scale. Hemoglobin A1c 5.2% but may not be reliable in the setting of chronic anemia.
Sinus bradycardia -hold atenolol. Heart rate now normal.
Drug-induced Parkinson's
Bipolar disorder -continue home meds.
History of meningioma -compressing the left optic nerve with resultant chronic left eye blindness.
Chronic normocytic anemia -hemoglobin near baseline. Monitor for now.
Leukopenia -possibly due to infection versus other. Monitor for now.
IBS
Full code
Dispo -PT recommends SNF on discharge. Prior to admission she was living at home with 24-hour care. Left a voicemail for patient's daughter to call me back.
Potentially may be medically stable for discharge by tomorrow if urine culture and sensitivity resulted.
Anticipated Discharge: Within 24 hours
Subjective/Interval History
-
Date of Service: February 18, 2024
Patient seen and examined. Sleeping when I walked in but arouses, no complaints. Minimal verbalization.
Objective Data
-
Labs:
Laboratory Results
02/18/24
05:06
Sodium 141
Potassium 4.4
Chloride 108 H
Carbon Dioxide 23
BUN 22 H
Creatinine 1.1 H
Glucose 143 H
Calcium 9.7
Vital Signs:
Vital Signs
Temp Pulse Resp BP Pulse Ox
98.2 F 70 16 138/57 94
02/18/24 12:02 02/18/24 12:02 02/18/24 12:02 02/18/24 12:02 02/18/24 12:02
I&O
02/17/24 02/18/24 02/19/24
06:59 06:59 06:59
Intake Total 560 / 560 290 / 290
Output Total 1250 / 1250
Balance 560 / 560 -960 / -960
Review of Systems
-
History Source: Patient
All other systems: Reviewed and negative
--- NOTE | 2024-02-18 13:29 | CM ---
PT OT indicate SNF assist of 2 .
Spoke with Nirmala [phone] reviewed PT OT with dgt, She said that she perfers for her to return home with 24 hour primary health care nurse and VN but if SNF needed she requested [facility] referral to be placed.
SNF placed in care port.
Pt uses Dr Farnsworth as PCP adn [address]
If SNF will need auth
PLAN Home with 24 hr primary health care nurse VS SNf .
[2024-02-18 15:13] VITALS: BP 110/78
[2024-02-18 16:34] LABS: Glucose - Point of Care 160 mg/dl (70-99)
[2024-02-18] MEDS: RISPERDAL 0.5 MG PO (21:11)
[2024-02-18 21:38] LABS: Glucose - Point of Care 139 mg/dl (70-99)
[2024-02-18 23:55] VITALS: BP 166/80
[2024-02-19] MEDS: ZOSYN 50 IV (05:10)
[2024-02-19] MEDS: NSS 1000 IV (05:11)
[2024-02-19 06:00] VITALS: BMI 21.8
[2024-02-19 08:14] VITALS: BP 135/78
[2024-02-19 09:38] LABS: Glucose - Point of Care 82 mg/dl (70-99)
[2024-02-19] MEDS: NOVOLOG FLEXPEN-LOW RESISTANCE SC ×3 (09:41→18:15)
[2024-02-19] MEDS: HEPARIN 5000 UNITS SC ×2 (09:42→20:53)
[2024-02-19] MEDS: COGENTIN 0.5 MG PO (09:45)
[2024-02-19] MEDS: DITROPAN 5 MG PO (09:45)
[2024-02-19] MEDS: HALDOL 0.25 MG PO (09:45)
[2024-02-19] MEDS: ASPIR LOW (ENTERIC COATED) 81 MG PO (09:50)
[2024-02-19 12:09] LABS: Glucose - Point of Care 96 mg/dl (70-99)
--- NOTE | 2024-02-19 12:14 | W.PN.HOSP.TC ---
Today's Communication/Plan
-
Brain MRI
Change to oral antibx
Assessment / Plan
Assessment / Plan
Gen-awake, alert, NAD
HEENT-NC, AT, anicteric, clear oral mm
Neck-supple
CV-reg, no M, +S1/S2
Lungs-clear B/L
Abd-soft, NT, ND
Ext-no edema
Musculoskeletal-no cyanosis, clubbing
Skin-warm and dry
Neuro-grossly non-focal
Psych-calm, cooperative
Acute TME -not improving unfortunately. Spoke with daughter on the phone, she states that patient's speech has become more slurred over the past 3 days and she does get intermittent episodes of confusion and slurred speech over the years especially
with acute illnesses such as infection. CT head on admission was unremarkable.
Given no improvement, will check brain MRI. Discussed with daughter on the phone who agrees.
Daughter states no changes to home medications recently. Patient has been compliant with all her home meds prior to admission.
Pur�ed diet/thin liquids per speech therapy.
UTI -due to klebsiella oxytoca, will change to Cefdinir.
Hypothermia -unclear if due to infection versus other etiology. Temperature is now normal. TSH normal. ACTH stim test normal.
Essential hypertension -stable.
DM 2 with hypoglycemia -glucose 82 this morning. Hold Lantus for now, use low resistance NovoLog scale. Hemoglobin A1c 5.2% but may not be reliable in the setting of chronic anemia.
Sinus bradycardia -hold atenolol. Heart rate now normal.
Drug-induced Parkinson's
Bipolar disorder -continue home meds.
History of meningioma -compressing the left optic nerve with resultant chronic left eye blindness.
Chronic normocytic anemia -hemoglobin near baseline. Monitor for now.
Leukopenia -possibly due to infection versus other. Monitor for now.
IBS
Full code
Dispo -PT recommends SNF on discharge. Prior to admission she was living at home with 24-hour care.
Updated daughter on the phone today.
Anticipated Discharge: Within 24 hours
Subjective/Interval History
-
Date of Service: February 19, 2024
Patient seen and examined. Speech is incoherent, sleeping when I walked in. Does arouse.
Objective Data
-
Vital Signs:
Vital Signs
Temp Pulse Resp BP Pulse Ox
98.6 F 78 16 135/78 95
02/19/24 08:14 02/19/24 08:14 02/19/24 08:14 02/19/24 08:14 02/19/24 08:14
I&O
02/18/24 02/19/24 02/20/24
06:59 06:59 06:59
Intake Total 290 / 290 2430 / 2430
Output Total 1250 / 1250 350 / 350
Balance -960 / -960 2079 / 2079
Review of Systems
-
Unable to obtain full review of systems at this time due to: Acuity
History Source: Patient
All other systems: Reviewed and negative
[2024-02-19] MEDS: OMNICEF 300 MG PO (13:10)
[2024-02-19 13:59] VITALS: BP 140/82
[2024-02-19] MEDS: NSS IV (15:17)
--- NOTE | 2024-02-19 16:46 | CM ---
Pt for MRI head today.
PT OT continue to recommend SNF assist of 2 .
Spoke with Nirmala [phone] reviewed PT OT with dgt, She said that she prefers for her to return home with 24 hour daycare teacher and VN but if SNF needed she requested [facility] placed in care port.
Pt has no behaviors.
Will nee auth for snf.
PLAN Home with 24 hr daycare teacher VS SNF..
[2024-02-19 17:01] LABS: Glucose - Point of Care 86 mg/dl (70-99)
[2024-02-19] MEDS: HALDOL PO (18:15)
[2024-02-19] MEDS: COGENTIN PO (18:43)
[2024-02-19] MEDS: OMNICEF PO ×2 (20:50)
[2024-02-19] MEDS: DITROPAN PO ×2 (20:50)
[2024-02-19] MEDS: RISPERDAL PO ×2 (21:56→22:52)
[2024-02-19 23:29] VITALS: BP 142/78
[2024-02-20 06:00] VITALS: BMI 21.5
--- NOTE | 2024-02-20 06:46 | PTCARENOTE ---
Patient refused HS medications and BS check @HS despite several attempts and encouragement.
[2024-02-20 07:50] VITALS: BP 112/73
[2024-02-20 08:30] LABS: Glucose - Point of Care 79 mg/dl (70-99)
[2024-02-20] MEDS: DITROPAN 5 MG PO ×2 (09:44→22:13)
[2024-02-20] MEDS: NOVOLOG FLEXPEN-LOW RESISTANCE SC ×3 (09:44→18:13)
[2024-02-20] MEDS: HEPARIN 5000 UNITS SC ×2 (09:45→22:14)
[2024-02-20] MEDS: OMNICEF 300 MG PO ×2 (09:45→22:13)
[2024-02-20] MEDS: HALDOL PO ×2 (09:46→18:13)
[2024-02-20] MEDS: COGENTIN PO ×2 (09:46→18:13)
--- NOTE | 2024-02-20 10:56 | W.PN.HOSP.TC ---
Today's Communication/Plan
-
Discharge planning
Assessment / Plan
Assessment / Plan
Gen-awake, alert, NAD
HEENT-NC, AT, anicteric, clear oral mm
Neck-supple
CV-reg, no M, +S1/S2
Lungs-clear B/L
Abd-soft, NT, ND
Ext-no edema
Musculoskeletal-no cyanosis, clubbing
Skin-warm and dry
Neuro-grossly non-focal
Psych-calm, cooperative
Acute TME -not improving unfortunately. Spoke with daughter on the phone, she states that patient's speech has become more slurred over the past 3 days and she does get intermittent episodes of confusion and slurred speech over the years especially
with acute illnesses such as infection. CT head on admission was unremarkable.
Brain MRI negative for stroke, does show findings of previous meningioma.
Daughter states no changes to home medications recently. Patient has been compliant with all her home meds prior to admission.
Pur�ed diet/thin liquids per speech therapy.
UTI -due to klebsiella oxytoca. Continue cefdinir.
Hypothermia -unclear if due to infection versus other etiology. Temperature is now normal. TSH normal. ACTH stim test normal.
Essential hypertension -stable.
DM 2 with hypoglycemia -glucose 82 this morning. Hold Lantus for now, use low resistance NovoLog scale. Hemoglobin A1c 5.2% but may not be reliable in the setting of chronic anemia.
Sinus bradycardia -hold atenolol. Heart rate now normal.
Drug-induced Parkinson's
Bipolar disorder -continue home meds.
History of meningioma -compressing the left optic nerve with resultant chronic left eye blindness.
Chronic normocytic anemia -hemoglobin near baseline. Monitor for now.
Leukopenia -possibly due to infection versus other. Monitor for now.
IBS
Full code
Dispo -medically stable for discharge to SNF. Case management aware.
Updated daughter on the phone today.
Anticipated Discharge: Today
Subjective/Interval History
-
Date of Service: February 20, 2024
Patient seen and examined. No complaints. Sleeping when I walked in but arousable, able to tell me her name. Difficult to understand when asked further questions.
Objective Data
-
Vital Signs:
Vital Signs
Temp Pulse Resp BP Pulse Ox
97.7 F 67 16 112/73 93
02/20/24 07:50 02/20/24 07:50 02/20/24 07:50 02/20/24 07:50 02/20/24 07:50
I&O
02/19/24 02/20/24 02/21/24
06:59 06:59 06:59
Intake Total 2430 / 2430 1060 / 1060
Output Total 350 / 350
Balance 2079 / 2079 1060 / 1060
Review of Systems
-
Unable to obtain full review of systems at this time due to: Dementia
History Source: Patient
All other systems: Reviewed and negative
[2024-02-20 12:05] LABS: Glucose - Point of Care 81 mg/dl (70-99)
--- NOTE | 2024-02-20 14:39 | CM ---
Addendum entered by Janey Butler RN 02/20/24 16:45:
Jaimie from [facility] accepted pt tomorrow. Daughter aware and in agreement.
Called [phone] spoke with Carrie received auth from 02/21/24 to 02/25/24 level 1 NRD 02/25/24. call [phone] Auth number [id number].
Jaimie at [facility] aware of auth.
[facility]
[phone]
fax [phone]
PLAN: to [facility]
Original Note:
PT OT continue to recommend SNF assist of 2 .
Pt has no behaviors.
Spoke with simona at [facility] no bed till at least Mon.
Spoke with [facility] no bed.
Radha at [facility] has no beds .
Spoke with Nirmala [phone] t, She said she request additional SNF for therstitess and [facility]erral placed in care port.
Pt has no behaviors.
Will need auth for snf.
PLAN to SNF after located and auth obtained.
[2024-02-20 15:50] VITALS: BP 170/61
[2024-02-20 17:54] LABS: Glucose - Point of Care 103 mg/dl (70-99)
[2024-02-20] MEDS: TYLENOL 650 MG PO (22:12)
[2024-02-20] MEDS: RISPERDAL 0.5 MG PO (22:13)
[2024-02-20] MEDS: DESYREL 25 MG PO (22:20)
[2024-02-20 22:23] LABS: Glucose - Point of Care 99 mg/dl (70-99)
[2024-02-20 23:29] VITALS: BP 168/68
[2024-02-21] VITALS: BP 160/70
[2024-02-21 07:50] VITALS: BP 180/77
[2024-02-21 08:10] LABS: Glucose - Point of Care 79 mg/dl (70-99)
[2024-02-21] MEDS: NOVOLOG FLEXPEN-LOW RESISTANCE SC ×2 (09:10→11:43)
[2024-02-21] MEDS: OMNICEF 300 MG PO (09:11)
[2024-02-21] MEDS: DITROPAN 5 MG PO (09:12)
[2024-02-21] MEDS: HEPARIN 5000 UNITS SC (09:12)
[2024-02-21] MEDS: HALDOL PO (09:14)
[2024-02-21] MEDS: COGENTIN PO (09:14)
[2024-02-21 10:37] VITALS: BP 167/59
--- NOTE | 2024-02-21 11:17 | W.DS.TRANS ---
DC Summary - Licensed Sales Producer
-
Discharge Instructions:
Discharge Diagnosis/Procedures Acute TME, UTI, hypothermia
Diet Other diet
Additional Diets Pur�ed diet
Activity With assistance
Driving Restrictions No driving
Bathing Restrictions None
Instructions:
Stand-Alone Forms:
Changes to Home Medications: Yes
Discharge Medications:
DC Medications w/original date entered in [email or web address]
aspirin 81 mg tablet,delayed release 81 mg PO SUTUTH Blood Clot Prevention/Tx 08/26/23
insulin glargine 100 unit/mL subcutaneous solution (Lantus U-100 Insulin) 5 unit SC HS Diabetes 08/26/23
oxybutynin chloride 5 mg tablet 5 mg PO BID Urinary Issue 08/26/23
trazodone 50 mg tablet 25 mg PO HSPRN PRN insomnia 08/26/23
benztropine 0.5 mg tablet 0.5 mg PO BID #60 tabs 09/01/23
risperidone 0.5 mg tablet (Risperdal) 0.5 mg PO HS #30 tabs 09/01/23
haloperidol 0.5 mg tablet 0.25 mg PO BID mental health 02/16/24
cefdinir 300 mg capsule 300 mg PO Q12 #0 caps 02/21/24
lithium carbonate 150 mg capsule 150 mg PO HS #10 caps 02/21/24
nifedipine 30 mg tablet,extended release 30 mg PO DAILY #0 tabs 02/21/24
polyethylene glycol 3350 17 gram oral powder packet (HealthyLax) 17 g PO DAILYPRN PRN constipation #0 ea 02/21/24
Home Medication Changes
Stop atenolol.
[place] dose reduced to 150 mg daily.
Pending Results: No
--- NOTE | 2024-02-21 11:17 | W.PN.HOSP.TC ---
Today's Communication/Plan
-
Discharge
Assessment / Plan
Assessment / Plan
Gen-awake, alert, NAD
HEENT-NC, AT, anicteric, clear oral mm
Neck-supple
CV-reg, no M, +S1/S2
Lungs-clear B/L
Abd-soft, NT, ND
Ext-no edema
Musculoskeletal-no cyanosis, clubbing
Skin-warm and dry
Neuro-grossly non-focal
Psych-calm, cooperative
Acute TME -TME resolved. Brain MRI negative for stroke.
Etiology of TME unclear but differential diagnosis includes UTI versus drug effect from lithium versus other. [place] level on admission was 1.2. She has not received any lithium in the hospital. Perhaps her mental status changes were related to
lithium effect, now improved off of lithium. Can resume lithium at a lower dose of 150 mg nightly. Discussed with daughter. Close outpatient follow-up.
UTI -due to klebsiella oxytoca. Continue cefdinir.
Hypothermia -unclear if due to infection versus other etiology. Temperature is now normal. TSH normal. ACTH stim test normal.
Essential hypertension -blood pressure now elevated. Atenolol discontinued due to bradycardia. Start Procardia XL.
DM 2 with hypoglycemia -glucose 79 this morning. Hold Lantus for now, use low resistance NovoLog scale. Hemoglobin A1c 5.2% but may not be reliable in the setting of chronic anemia. Will discontinue insulin on discharge. Glucoses under good
control.
Sinus bradycardia -hold atenolol. Heart rate now normal.
Drug-induced Parkinson's
Bipolar disorder -lithium has been on hold since admission. Mental status improved. Will resume lithium at lower dose.
History of meningioma -compressing the left optic nerve with resultant chronic left eye blindness.
Chronic normocytic anemia -hemoglobin near baseline. Monitor for now.
Leukopenia -possibly due to infection versus other. Monitor for now.
IBS
Full code
Dispo -medically stable for discharge to SNF. Case management aware.
32-minute spent in discharge process.
Anticipated Discharge: Today
Subjective/Interval History
-
Date of Service: February 21, 2024
Patient seen and examined. Much more awake and alert, interactive today. No complaints.
Objective Data
-
Vital Signs:
Vital Signs
Temp Pulse Resp BP Pulse Ox
98 F 50 16 167/59 96
02/21/24 07:50 02/21/24 07:50 02/21/24 07:50 02/21/24 10:37 02/21/24 07:50
I&O
02/20/24 02/21/24 02/22/24
06:59 06:59 05:59
Intake Total 1060 / 1060 720 / 720
Balance 1060 / 1060 720 / 720
Review of Systems
-
History Source: Patient
All other systems: Reviewed and negative
--- NOTE | 2024-02-21 11:21 | W.DS.TRANS ---
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
-
Discharge Instructions:
Discharge Diagnosis/Procedures Acute TME, UTI, hypothermia
Diet Other diet
Additional Diets Pur�ed diet
Activity With assistance
Driving Restrictions No driving
Bathing Restrictions None
Instructions:
Stand-Alone Forms:
Changes to Home Medications: Yes
Discharge Medications:
DC Medications w/original date entered in [facility]
aspirin 81 mg tablet,delayed release 81 mg PO SUTUTH Blood Clot Prevention/Tx 08/26/23
oxybutynin chloride 5 mg tablet 5 mg PO BID Urinary Issue 08/26/23
trazodone 50 mg tablet 25 mg PO HSPRN PRN insomnia 08/26/23
benztropine 0.5 mg tablet 0.5 mg PO BID #60 tabs 09/01/23
risperidone 0.5 mg tablet (Risperdal) 0.5 mg PO HS #30 tabs 09/01/23
haloperidol 0.5 mg tablet 0.25 mg PO BID mental health 02/16/24
cefdinir 300 mg capsule 300 mg PO Q12 #0 caps 02/21/24
lithium carbonate 150 mg capsule 150 mg PO HS #10 caps 02/21/24
nifedipine 30 mg tablet,extended release 30 mg PO DAILY #0 tabs 02/21/24
polyethylene glycol 3350 17 gram oral powder packet (HealthyLax) 17 g PO DAILYPRN PRN constipation #0 ea 02/21/24
Home Medication Changes
Atenolol discontinued
Lantus insulin discontinued
[place] dose reduced
Pending Results: No
[2024-02-21 11:29] LABS: Glucose - Point of Care 121 mg/dl (70-99)
[2024-02-21] MEDS: PROCARDIA XL (EXTENDED RELEASE) 30 MG PO (12:39)
--- NOTE | 2024-02-21 13:25 | CM ---
Reviewed chart, patient has been medically cleared for discharge. Placed a call to patient's daughter, reviewed IMM. She is agreeable to discharge, however she stated that she may want to bring patient home as patient appears to be feeling better.
Patient's daughter stated that she will see if she can transfer with the assist of her aid. Patient's daughter was made aware that medical indication is still for patient to go to SNF and if she takes her home, there would be safety risks. Patient's
daughter stated that she will be in to see patient today and render determination once she is seeing her in person.
Patient's daughter came to visit patient and all parties are agreeable to patient going to SNF.
Plan: Case management will continue to follow and assist with discharge planning. Bed is available at [facility] today.
--- NOTE | 2024-02-21 14:14 | PTCARENOTE ---
at 1028 notified because patient's manual b/p in right arm was elevated 182/70, left arm 167/59. Her b/p was 180/77 at 0750. patient's atenolol has been on hold due to bradycardia. patient started on Procardia XL and scheduled for
discharge to [facility] today, will continue to monitor.
[2024-02-21 15:55] VITALS: BP 147/77
== END 2024-02-21 17:01 | DRG 689 ==
LOC: 3 WEST ACU 22:14
PROVIDERS: Clinical Nurse Specialist Family Health; Student in an Organized Health Care Education/Training Program; ADMITTING PHYSICIAN Internal Medicine; ATTENDING PHYSICIAN Hospitalist; EMERGENCY PHYSICIAN Student in an Organized Health Care Education/Training Program
DX: N39.0 Urinary tract infection, site not specified (principal); G92.8 Other toxic encephalopathy; N17.9 Acute kidney failure, unspecified; G21.19 Other drug induced secondary parkinsonism; E11.649 Type 2 diabetes mellitus with hypoglycemia without coma; F31.9 Bipolar disorder, unspecified; I10 Essential (primary) hypertension; B96.89 Other specified bacterial agents as the cause of diseases classified elsewhere; G25.1 Drug-induced tremor; E86.0 Dehydration; H54.62 Unqualified visual loss, left eye, normal vision right eye; R00.1 Bradycardia, unspecified; Z79.4 Long term (current) use of insulin; Z79.899 Other long term (current) drug therapy; Z86.79 Personal history of other diseases of the circulatory system; Z87.19 Personal history of other diseases of the digestive system; Z86.011 Personal history of benign neoplasm of the brain; Z87.891 Personal history of nicotine dependence; Z90.49 Acquired absence of other specified parts of digestive tract; Z90.710 Acquired absence of both cervix and uterus
CPT/HCPCS: 51701; 70450; 70551; 71046; 80048; 80053; 80178; 81003; 81015; 82533; 82962; 83036; 84443; 84484; 85025; 85027; 87077; 87086; 87186; 87811; 92526; 92610; 93005; 96360; 97112; 97163; 97167; 97530; 97535; 99285

== ENCOUNTER 2024-05-17 15:31 | Inpatient (IN) | payer OTHER, SELFPAY ==
--- NOTE | 2024-05-17 13:40 | ED.GENMED ---
History of Present Illness
General
Chief Complaint: Change in Mental Status
Time Seen by Provider: 05/17/24 13:40
History of Present Illness
History of Present Illness:
TIME OF INITIAL ENCOUNTER:
HPI: Patient came in by ambulance due to change in mental status. She apparently lives at home and she was last seen on Friday. The patient is minimally responsive currently and nonverbal and does not provide any meaningful history.
Unfortunately, the report that we received from EMS was lacking and they could not tell what her baseline mental status was like. See note below regarding conversation with daughter.
EXAM:
GENERAL: The patient is acute on chronically ill in appearance, she is febrile, she lays on the stretcher on her side listlessly
HEENT: Dry oral mucosa
CARDIOVASCULAR: Regular rate and rhythm
PULMONARY: No respiratory distress, breathing is nonlabored, equal and clear breath sounds
ABDOMEN: Soft and nontender with no peritoneal signs
NEUROLOGIC: The patient has evidence of dementia, not oriented to month or place, strength is equal in all extremities
EXTREMITIES: Markedly decreased strength/movement in all extremities
PYSCHIATRIC: Nonverbal, does not participate with examination
NUMBER AND COMPLEXITY OF PROBLEMS ADDRESSED AT THE ENCOUNTER
� Chronic conditions affecting care: Drug-induced Parkinson's, [place]-Dayhx, IBS, IDDM, bipolar/depression
� Acute Exacerbation and/or Progression of Chronic Illness: This is an acute but recurring problem
� Differential Diagnosis includes: UTI, sepsis, pneumonia, failure to thrive, dehydration, MADONNA, rhabdomyolysis, lithium toxicity
AMOUNT AND/OR COMPLEXITY OF DATA TO BE REVIEWED AND ANALYZED
� I performed an independent evaluation of and my interpretation is:
EKG:
CT:
X-rays: Chest x-ray suggest an infiltrate in the left base
Laboratory Studies: CK 444, creatinine 1.4 which has worsened, lactic 0.9, lithium within normal range 0.8, urinalysis shows 30-40 white cells
Other:
� Review of other/old records: I reviewed records. The patient was admitted with 'acute toxic metabolic encephalopathy/UTI/hypothermia' nearly 3 months ago. At that time her lithium level was high as well. I also reviewed MRI
brain report from 02/19/2024.
� Clinical information was obtained by an independent historian: I spoke to the ER nurses who spoke to EMS
� Prescriptions/Medications Considered but not given:
� Further testing considered but not performed:
RISK OF COMPLICATIONS AND/OR MORBIDITY OR MORTALITY OF PATIENT MANAGEMENT
� Social determinants of health affecting care: Lives at home and has 24-hour care
� Discussion with other providers: Hospitalist for admission at 2:40 PM, Dr. Mccann
� Escalation of care including admission/observation vs risk of discharge considered: The patient is very ill in appearance�will be admitted to the hospital
ANY OTHER UPDATES:
2:30 PM: I called Nirmala Scott, daughter, �the daughter is an APPLICATION DBA. The daughter tells me she has 24-hour care. She was told by the caregiver that over the last couple days, she has had poor p.o. intake and has not wanted to eat and
would not get out of bed. Daughter tells me that she wants her to be DNR. CK levels elevated and she was given IV fluids. Last 2 cultures did show sensitivity to cefepime (only 1 was sensitive to Rocephin).
Past History
Past History
ED Past Medical History: Arrthythmia (WPW), HTN, IDDM, Psychiatric (Bipolar, Depression) and Other (IBS, Parkinson's , UTI, Blind Left eye, Diverticulitis)
ED Past Surgical History: Cholecystectomy and Gynecological (Hysterectomy)
Social History
Tobacco: Former smoker
Alcohol: None
Personal:
Living: with family (care transition mgr)
Employment: Retired
Phy Exam
Physical Exam
Physical Exam:
See HPI
Course
Orders/Labs/Results
Orders:
Orders
05/17/24 13:55
0.9% Sodium Chloride 1000 ml [Nss] 1,000 ml IV BOLUS
Acetaminophen [Tylenol/Feverall] 650 mg RECTAL NOW STA
CR Chest Portable - 1 View Urgent
Comment:
Reason For Exam: fever alt ms
Reason Study Needs to be Portable: Patient Unstable
05/17/24 13:58
Complete Blood Count/With Diff Urgent
Comprehensive Metabolic Panel Urgent
Lactic Acid Q4H
Comment: CANCEL 2nd LACTIC ACID IF 1st LACTIC ACID IS LESS THAN 2
[place] Urgent
Total CK [Creatine Phosphokinase] Urgent
Blood Culture Q30M
JOVANY Source: Blood/Venous
Specimen Description:
05/17/24 14:01
Urinalysis Reflex To Culture Urgent
Date Specimen was Collected: 05/17/24
Time Specimen was Collected: 13:59
Urine Microscopic Reflex Cult Urgent
Urine Culture Urgent
JOVANY Source: U
Specimen Description:
Date Specimen was Collected: 05/17/24
Time Specimen was Collected: 13:59
05/17/24 14:35
CefTRIAXone [Rocephin] 1,000 mg IV NOW STA
05/17/24 14:39
Cefepime HCl [Maxipime] 1,000 mg IV NOW STA
05/17/24 14:56
Admit/Transfer Patient As Directed
Co-Sign Provider:
Level of Care: Inpatient admission
Assign to:: Medical/Surgical
Physician / Group: hubert
Diagnosis: metabolic encephelopathy/uti
Reason for Hospitalization: metabolic encephelopathy/ uti
Expected length of stay greater than two midnights?: Yes
ELOS- Estimated Length of Stay in days: 2
I certify the patient meets the requirements for IP care: Yes
05/17/24 14:58
PRN Pain Medication Management As Directed
May give lesser potent ordered pain med per pt: Yes
preference::
Protocol:: Medication orders for pain may be administered in a
manner that supports deferring to patient preference
when the pt is:
- Requesting an ordered lesser potent pain medication.
Least to most potent pain medications are defined
as: acetaminophen < NSAID < tramadol < opioids
(morphine, oxycodone, hydromorphone).
- Requesting a lesser dose of the same medication IF
ORDERED.
- Requesting a less intrusive route of administration
if both routes are prescribed by the provider (PO <
IV).
05/17/24 15:00
Code Status As Directed
Resuscitation Status: Do not resuscitate
Reached after discussion with pt or family/Healthcare POA: Yes
NPO
Allow oral meds: Yes
Allow clear liquids: No
DNR Bracelet Application ONCE
05/17/24 16:16
COVID-19 Antigen Urgent
Source: Nasal Swab
Blood Culture Q30M
JOVANY Source: Blood/Venous
Specimen Description:
Influenza A+B Rapid Molecular Urgent
JOVANY Source: Nasal Swab
Specimen Description:
05/17/24 18:03
0.9% Sodium Chloride 1000 ml [Nss] 1,000 ml IV 100 mls/hr
Cefepime HCl [Maxipime] 1,000 mg IV Q12H
Dextrose 50%-Water [Dextrose 50% Syringe] 12.5 grams IV [id number] PRN
Glucagon [GlucaGen] 1 mg IM PRN PRN
Insulin Aspart Corrective Low [Novolog Flexpen-Low Resistance] See Protocol SC AC
05/17/24 18:03
Activity As Directed
Activity Level: As Tolerated
Bedside Glucose Monitoring As Directed
Frequency: AC&HS
Additional Instructions:: Change to q6h if pt on TPN, tube feeding or not eating
Vital Signs As Directed
Frequency: Per unit guidelines
DX Deep Vein Thrombosis Video Routine
05/17/24 20:00
Heparin 5,000 units SC Q12
05/18/24 06:00
Complete Blood Count/With Diff IN AM
Comprehensive Metabolic Panel IN AM
Glycohemoglobin (HgbA1c) IN AM
Abnormal Lab Results
05/17/24 05/17/24
13:58 14:01
RBC 3.13 L 10^6/uL
(4.20-5.40)
Hgb 9.4 L g/dL
(12.0-16.0)
Hct 29.1 L %
(37.0-47.0)
MCHC 32.3 L g/dL
(33.0-37.0)
RDW 16.0 H %
(11.5-14.5)
MPV 11.3 H fL
(7.4-10.4)
Absolute Neuts (auto) 6.9 H 10^3/uL
(1.4-6.5)
Absolute Lymphs (auto) 1.0 L 10^3/uL
(1.2-3.4)
Absolute Monos (auto) 0.9 H 10^3/uL
(0.1-0.6)
Neutrophils % 78.0 H %
(42.2-75.2)
Lymphocytes % 11.3 L %
(20.5-51.1)
Monocytes % 10.1 H %
(1.7-9.3)
BUN 26 H mg/dl
(7-17)
Creatinine 1.4 H mg/dL
(0.6-1.0)
Glucose 139 H mg/dl
(70-99)
AST 39 H U/L
(14-36)
Creatine Kinase 444 H U/L
(30-135)
Total Protein 5.9 L g/dl
(6.3-8.2)
Albumin 3.3 L g/dl
(3.5-5.0)
Ur Occult Blood Reflex Trace A
(Negative)
Leukocyte Esterase Rfl 2+ A
(Negative)
Urine WBC (Reflex) 30-40 A /HPF
(0-5)
Urine Bacteria (Reflex) Few A
(Negative)
05/17/24 13:58
05/17/24 13:58
Vital Signs
Initial and Last Documented VS:
Initial Vital Signs
Pulse Resp BP Pulse Ox
79 16 152/69 99
05/17/24 13:42 05/17/24 13:42 05/17/24 13:42 05/17/24 13:42
Last Documented Vital Signs
Temp Pulse Resp BP Pulse Ox
38.4 C H 69 17 169/62 100
05/17/24 13:54 05/17/24 17:45 05/17/24 17:45 05/17/24 17:01 05/17/24 17:45
*Critical Care Note
Total Time (30-74mins, 75-104mins- exclusive of procedures): Not Applicable
ED Attending Note
-
Portions of this chart may have been created with voice recognition software.� Occasional wrong word or��sound alike� substitutions may have occurred due to the inherent limitations of voice recognition software.
Discharge Plan
Departure
Patient Disposition: Admit
Date of Disposition: 05/17/24
Time of Disposition: 14:53
Presentation/result/management discussed w/ accepting MD/DO: Hospitalist
Discharge Problem:
Adult failure to thrive
Interventions
Interventions:
*Risk Screen - Suicide Last Done: 05/17/24 13:42
*General Assessment Last Done: 05/17/24 13:42
*Neglect/Abuse Screening Last Done: 05/17/24 13:42
*ED COVID-19 Vaccine History Last Done: 05/17/24 15:02
ED- Neurological Assessment Last Done: 05/17/24 15:02
ED Swallowing Screen Last Done: 05/17/24 17:55
[2024-05-17 13:42] VITALS: BP 152/69
[2024-05-17] MEDS: NSS 1000 IV ×2 (14:00→19:50)
[2024-05-17] MEDS: TYLENOL/FEVERALL 650 MG RECTAL (14:04)
[2024-05-17 14:13] LABS: % Basophils 0.1 % (0-2); % Eosinophils 0.2 % (0-6); % Immature Granulocytes 0.3 % (0-0.5); % Lymphocytes 11.3 % (20.5-51.1); % Monocytes 10.1 % (1.7-9.3); Absolute Monocytes 0.9 10^3/uL (0.1-0.6); Absolute Neutrophils 6.9 10^3/uL (1.4-6.5); Hematocrit 29.1 % (37.0-47.0); Hemoglobin 9.4 g/dL (12.0-16.0); Mean Corp Hgb Conc. 32.3 g/dL (33.0-37.0); Mean Platelet Volume 11.3 fL (7.4-10.4); Nucleated Red Blood Cells % 0 %; Platelet Count 144 10^3/uL (130-400); Red Blood Cell Count 3.13 10^6/uL (4.20-5.40); White Blood Cell Count 8.9 10^3/uL (4.8-10.8)
[2024-05-17 14:15] LABS: Urine Albumin Negative (Neg - Trace); Urine Bilirubin Negative (Negative); Urine Character Clear (Clear); Urine Color Yellow; Urine Glucose Negative (Negative); Urine Ketone Negative (Negative); Urine Leukocyte 2+ (Negative); Urine Nitrite Negative (Negative); Urine Occult Blood Trace (Negative); Urine Specific Gravity 1.015 (<1.030); Urine Urobilinogen Negative (Neg - 1+)
[2024-05-17 14:24] LABS: ALT (SGPT) 31 U/L (0-35); AST (SGOT) 39 U/L (14-36); Albumin 3.3 g/dl (3.5-5.0); Alkaline Phosphatase 121 U/L (38-126); Blood Urea Nitrogen 26 mg/dl (7-17); Calcium 9.5 mg/dl (8.4-10.2); Carbon Dioxide 27 mmol/L (22-30); Chloride 102 mmol/L (98-107); Creatine Phosphokinase 444 U/L (30-135); Glucose 139 mg/dl (70-99); Lithium 0.8 mmol/L (0.6-1.2); Sodium 135 mmol/L (135-145); Total Bilirubin 0.5 mg/dl (0.2-1.3); Total Protein 5.9 g/dl (6.3-8.2); eGFR 36.19
[2024-05-17 14:26] LABS: Lactic Acid 0.9 mmol/L (0.7-2.0)
[2024-05-17 14:27] LABS: Urine Bacteria Few (Negative); Urine Red Blood Cell 0-2 /HPF (0-2); Urine White Cell 30-40 /HPF (0-5)
[2024-05-17 15:00] VITALS: BP 152/63
--- NOTE | 2024-05-17 15:07 | HPS.HSE ---
Family Physician
-
Family Physician: NOT KNOW UNKNOWN - PT DOES
Chief Complaint
-
altered mental status
History of Present Illness
88-year-old female past medical history of diabetes, sinus bradycardia, hypertension, drug-induced Parkinson disease, bipolar disorder, meningioma, chronic normocytic anemia, leukopenia, IBS, presenting with change in mental status. She lives at
home was last seen on Friday. She is minimally responsive and nonverbal and not providing any history.
ER spoke with patient's daughter who is an RN DOCUMENTATION SPECIALIST. Daughter has 24-hour care. Patient has had poor p.o. intake and not getting out of bed over the past few days. Daughter wants patient to be DNR.
As per home care nurse she developed cough yesterday. She was also urinating frequently. No vomiting or diarrhea.
Medical History
Past Medical History
Past Medical History: Reports Other (diabetes, sinus bradycardia, hypertension, drug-induced Parkinson disease, bipolar disorder, meningioma, chronic normocytic anemia, leukopenia, IBS)
Past Surgical History: Reports Other (Cholecystectomy and Gynecological (Hysterectomy))
Social History
Tobacco: Non-smoker
Alcohol: None
Drug: None
Family History
Family History: Not pertinent
Allergies / Home Medications
Allergies reflects when Allergies were last updated in [employer].
Home Medications with original date entered in [employer]
Allergy/Medication List:
Allergies
Allergy/AdvReac Type Severity Reaction Status Date / Time
No Known Allergies Allergy Verified 05/17/24 13:39
Home Medications
aspirin 81 mg tablet,delayed release 81 mg PO Q48H Blood Clot Prevention/Tx 08/26/23
oxybutynin chloride 5 mg tablet 5 mg PO BID Urinary Issue 08/26/23
trazodone 50 mg tablet 25 mg PO HSPRN PRN insomnia 08/26/23
benztropine 0.5 mg tablet 0.5 mg PO BID #60 tabs 09/01/23
haloperidol 0.5 mg tablet 0.25 mg PO BID mental health 02/16/24
atenolol 25 mg tablet 12.5 mg PO DAILY 05/17/24
ibuprofen 200 mg tablet (Advil) 200 mg PO Q6HPRN PRN mild pain 05/17/24
lithium carbonate 150 mg capsule 300 mg PO HS 05/17/24
loperamide 2 mg tablet 2 mg PO Q4HPRN PRN diarrhea 05/17/24
risperidone 0.5 mg tablet (Risperdal) 0.5 mg PO DAILY 05/17/24
Review of Systems
-
History Source: Patient
A 12 point ROS was completed and negative except as noted: Yes
Constitutional: Reports No Symptoms
EENT: Reports No Symptoms
Respiratory: Reports No Symptoms
Cardiac: Reports No Symptoms
Abdomen/GI: Reports No Symptoms
: Reports No Symptoms
Musculoskeletal: Reports No Symptoms
Skin: Reports No Symptoms
Neurological: Reports No Symptoms
Endocrine: Reports No Symptoms
Hematologic/Lymphatic: Reports No Symptoms
Psych: Reports No Symptoms
Physical Exam
Vital Signs
Vital Signs
Temp Pulse Resp BP Pulse Ox
101.2 F H 77 18 152/69 100
05/17/24 13:54 05/17/24 15:00 05/17/24 15:00 05/17/24 13:42 05/17/24 15:00
Physical Exam
General: Well Developed, Well Nourished and No Apparent Distress
HEENT: NormoCephalic, Moist mucous membranes and Atraumatic
Respiratory: Clear
Cardiac: S1/S2 and Regular Rhythm; No Murmur or Rub
GI: Soft, Non Tender, Non Distended and Normal Bowel Sounds; No Organomegaly
Rectal: Deferred by Provider
Musculoskeletal: No Clubbing, No Cyanosis and No Edema
Skin: No Rash
Neuro: Nonfocal/grossly intact
Laboratory Results
-
05/17/24 13:58
05/17/24 13:58
Laboratory Results
Lactic Acid Cancelled 05/17/24 18:00
Total Bilirubin 0.5 mg/dl (0.2-1.3) 05/17/24 13:58
AST 39 U/L (14-36) H 05/17/24 13:58
ALT 31 U/L (0-35) 05/17/24 13:58
Alkaline Phosphatase 121 U/L (38-126) 05/17/24 13:58
Data Reviewed
-
Lab Data: Labs Reviewed by me
Old Records: Reviewed
Impression/Plan
-
IMPRESSION:
PLAN:
# Likely metabolic encephalopathy possibly secondary to UTI
-Urinalysis shows 30-40 WBC, +2 leukocyte esterase
-Follow urine culture
-Prior urine culture shows Klebsiella, Enterobacter with Enterobacter being resistant to ceftriaxone
-IV fluids
-Blood cultures pending
-Cefepime
-Regular diet when awake, continue medications when able
# Cough likely viral URI
-Chest x-ray, COVID and influenza pending
# Acute kidney injury
-IV fluids
Type 2 diabetes
-Insulin sliding scale
Hypertension
-Continue atenolol when able
History of sinus bradycardia
Drug-induced Parkinson's disease
-Continue benztropine when able
Bipolar disorder
-Continue Haldol, lithium, risperidone when awake and alert
Meningioma
Chronic normocytic anemia
-Hemoglobin stable
Chronic leukopenia
IBS
DNR/DNI
DVT prophylaxis�heparin
Regular diet when able
[2024-05-17 16:00] VITALS: BP 119/52
[2024-05-17] MEDS: MAXIPIME 1000 MG IV (16:18)
[2024-05-17 17:00] LABS: COVID-19 Antigen Negative (Negative)
[2024-05-17 17:01] VITALS: BP 169/62
--- NOTE | 2024-05-17 19:14 | PTCARENOTE ---
Pt received from ED to [id number]. Pt not answering questions. Caregiver at bedside.
[2024-05-17 19:19] VITALS: BP 162/73; BMI 23.1
[2024-05-17] MEDS: HEPARIN 5000 UNITS SC (19:52)
[2024-05-17 23:18] VITALS: BP 164/61
[2024-05-17 23:57] LABS: Glucose - Point of Care 146 mg/dl (70-99)
[2024-05-18] MEDS: NSS 1000 IV ×3 (05:44→23:59)
[2024-05-18 05:48] LABS: Glucose - Point of Care 98 mg/dl (70-99)
[2024-05-18 05:49] VITALS: BMI 23.1
[2024-05-18] MEDS: HEPARIN 5000 UNITS SC ×2 (07:45→19:34)
[2024-05-18 07:54] VITALS: BP 161/68
[2024-05-18 08:38] LABS: ALT (SGPT) 28 U/L (0-35); AST (SGOT) 33 U/L (14-36); Albumin 2.9 g/dl (3.5-5.0); Alkaline Phosphatase 114 U/L (38-126); Blood Urea Nitrogen 25 mg/dl (7-17); Calcium 8.7 mg/dl (8.4-10.2); Carbon Dioxide 21 mmol/L (22-30); Chloride 109 mmol/L (98-107); Estimated Creatinine Clearance 31 ml/min; Glucose 100 mg/dl (70-99); Potassium 4.1 mmol/L (3.5-5.1); Sodium 138 mmol/L (135-145); Total Bilirubin 0.5 mg/dl (0.2-1.3); Total Protein 5.4 g/dl (6.3-8.2); eGFR 54.19
[2024-05-18 08:51] LABS: % Basophils 0.1 % (0-2); % Eosinophils 0.7 % (0-6); % Immature Granulocytes 0.4 % (0-0.5); % Lymphocytes 10.6 % (20.5-51.1); % Neutrophils 78.2 % (42.2-75.2); Absolute Eosinophils 0.1 10^3/uL (0-0.7); Absolute Lymphocytes 0.8 10^3/uL (1.2-3.4); Absolute Monocytes 0.8 10^3/uL (0.1-0.6); Absolute Neutrophils 5.8 10^3/uL (1.4-6.5); Hematocrit 27.5 % (37.0-47.0); Hemoglobin 9.1 g/dL (12.0-16.0); Mean Corp Hgb Conc. 33.1 g/dL (33.0-37.0); Mean Corpuscular Volume 90.8 fL (81.0-99.0); Mean Platelet Volume 11.5 fL (7.4-10.4); Nucleated Red Blood Cells % 0 %; Platelet Count 140 10^3/uL (130-400); Red Blood Cell Count 3.03 10^6/uL (4.20-5.40); Red Cell Dist. Width 15.9 % (11.5-14.5); White Blood Cell Count 7.5 10^3/uL (4.8-10.8)
[2024-05-18 11:32] LABS: Glycohemoglobin (HgbA1c) 5.1 % (4.0-5.6)
[2024-05-18 11:44] LABS: Glucose - Point of Care 95 mg/dl (70-99)
--- NOTE | 2024-05-18 13:16 | W.PN.HOSP.TC ---
Today's Communication/Plan
-
See plan
Assessment / Plan
Assessment / Plan
Impression:
Toxic metabolic encephalopathy.
Fever.
Abnormal urinalysis
MADONNA
Conditions prior to admission:
Bipolar disorder.
Drug-induced parkinsonism
Meningioma.
Left eye blindness
Essential hypertension
Diabetes type 2 currently not on glucose lowering medications or insulin.
Plan:
Toxic metabolic encephalopathy suspect in the settings of fever, acute kidney injury likely with contribution of polypharmacy with sedative effect of benztropine, Haldol, oxybutynin
[place] level 0.8
Hold above-mentioned medications
Continue IV hydration
MADONNA.
Creatinine improving with IV hydration.
Avoid nephrotoxic agents.
Monitor for retention
Bipolar disorder.
Drug-induced parkinsonism.
Given altered mental status hold lithium, Haldol, benztropine acutely
Psychiatry consultation
Abnormal urinalysis
Fever on admission.
Continue antibiotics: Ceftriaxone PT blood and urine cultures
Hold oxybutynin acutely
Essential hypertension
Monitor blood pressure trend.
Hold atenolol.
Type 2 diabetes by history.
Hemoglobin A1c 5.1.
Continue basal bolus protocol with Accu-Cheks.
Should not be on insulin or any glucose lowering medications.
DNR
Anticipated Discharge: 24 - 48 hours
Subjective/Interval History
-
Date of Service: May 18, 2024
Objective Data
-
Labs:
Laboratory Results
05/18/24
07:42
WBC 7.5
Hgb 9.1 L
Hct 27.5 L
Plt Count 140
Sodium 138
Potassium 4.1
Chloride 109 H
Carbon Dioxide 21 L
BUN 25 H
Creatinine 1.0
Glucose 100 H
Calcium 8.7
Total Bilirubin 0.5
AST 33
ALT 28
Alkaline Phosphatase 114
Vital Signs:
Vital Signs
Temp Pulse Resp BP Pulse Ox
97.9 F 83 18 161/68 97
05/18/24 07:54 05/18/24 07:54 05/18/24 07:54 05/18/24 07:54 05/18/24 07:54
I&O
05/17/24 05/18/24 05/19/24
06:59 06:59 06:59
Intake Total 1100 / 1100
Balance 1100 / 1100
Physical Exam
-
General: Well Developed and No Apparent Distress
HEENT: Normocephalic, Atraumatic and Moist Mucous Membranes
Respiratory: Clear to Auscultation
Cardiac: Regular Rhythm and S1/S2; Negative Murmur, Rub or Gallop
GI: Soft, Nontender, Nondistended and Normal Bowel Sounds; Negative Organomegaly
Rectal: Deferred by Provider
Musculoskeletal: No Clubbing, No Cyanosis and No Edema
Skin: Negative Rash
Neuro: Nonfocal/Grossly Intact and Other (Obtunded)
[2024-05-18] MEDS: ROCEPHIN 1000 MG IV (13:49)
[2024-05-18] MEDS: STERILE WATER FOR INJECTION 10 ML IV (13:49)
[2024-05-18 15:08] VITALS: BP 157/60
--- NOTE | 2024-05-18 15:22 | CS.PSYCHR ---
Consult Summary - Psychiatry
-
Pt is an 88 yo female past medical history of diabetes, sinus bradycardia, hypertension, drug-induced Parkinsonism, bipolar disorder, meningioma, chronic normocytic anemia, leukopenia, IBS, who was brought to via EMS after home health aid called
due to change in mental status. Pt noted to be minimally responsive, not able to give any history. Pt admitted with dehydration, TME, fever, MADONNA. [place] level 0.8 at 2 pm 05/17. Psychotropic medications are being held. Dtr noted reporting pt
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 Pt lying in bed, asleep/unresponsive, no signs of agitation.
Psych Hx: Bipolar d/o, with hx of inpatient admissions; noted to have had a manic episode and hospitalization in 2022 after [place] was stopped. On lithium for many years
SH: unable to obtain; has home health aid
MSE: lying in bed, asleep/not responding, although reportedly awake and talking earlier. Not able to answer questions at present
Imp: Bipolar d/o by history, has been maintained on [place], with recent decrease in po intake
TME, multifactorial
Rec: when more stable would resume [place], given above history of recurrence of agapito when [place] was held
resume other psychotropic agents when mental status clearer
will follow
[2024-05-18 17:29] LABS: Glucose - Point of Care 99 mg/dl (70-99)
[2024-05-18 23:33] VITALS: BP 168/65
[2024-05-18 23:48] LABS: Glucose - Point of Care 113 mg/dl (70-99)
[2024-05-19 05:44] LABS: Glucose - Point of Care 89 mg/dl (70-99)
[2024-05-19 07:00] VITALS: BP 177/71
[2024-05-19] MEDS: HEPARIN 5000 UNITS SC ×2 (09:34→19:50)
[2024-05-19] MEDS: NSS 1000 IV ×2 (10:22→19:51)
[2024-05-19 12:04] LABS: Glucose - Point of Care 85 mg/dl (70-99)
[2024-05-19] MEDS: ROCEPHIN 1000 MG IV (13:40)
[2024-05-19] MEDS: STERILE WATER FOR INJECTION 10 ML IV (13:40)
[2024-05-19 15:21] VITALS: BP 159/64
--- NOTE | 2024-05-19 15:50 | W.PN.UPDATE ---
Update Note
Progress Note Update
i attempted to see patient but she was sleeping. her radiation control worker was in the room. i did review chart and speak to dr senior and frank. i would not restart any of the patients medications until she is consistently awake and alert. ( i was told she
was awake earlier today) she was reportedly on haldol lithium and benztropine . will see her tomorrow and speak w d at that time.
--- NOTE | 2024-05-19 16:22 | W.PN.HOSP.TC ---
Today's Communication/Plan
-
Mental status improved
Wean off IV fluids
Advance diet.
Aspiration precautions
Hold preadmission psychiatric medications for reassessment over the next 24 hours
Observe off antibiotics
Resume atenolol
Assessment / Plan
Assessment / Plan
Impression:
Toxic metabolic encephalopathy.
Fever.
Abnormal urinalysis
MDAONNA
Conditions prior to admission:
Bipolar disorder.
Drug-induced parkinsonism
Meningioma.
Left eye blindness
Essential hypertension
Diabetes type 2 currently not on glucose lowering medications or insulin.
Plan:
Toxic metabolic encephalopathy suspect in the settings of fever, acute kidney injury likely with contribution of polypharmacy with sedative effect of benztropine, Haldol, oxybutynin
[place] level 0.8
Hold above-mentioned medications
Mental status improved with hydration and improvement of renal function.
Advance diet
Aspiration precautions.
MADONNA.
Creatinine improving with IV hydration.
Avoid nephrotoxic agents.
Monitor for retention
Bipolar disorder.
Drug-induced parkinsonism.
Given altered mental status hold lithium, Haldol, Risperdal, benztropine acutely
Discussed with psychiatry.
Mental status improved with hydration.
Continue to hold preadmission medication regimen for review over the next 24 hours.
Abnormal urinalysis
Fever on admission.
Urine culture with Staphylococcus species likely contaminant.
Hold off on further antibiotics and monitor closely
Hold oxybutynin acutely
Essential hypertension
Monitor blood pressure trend.
Resume atenolol
Type 2 diabetes by history.
Hemoglobin A1c 5.1.
Continue basal bolus protocol with Accu-Cheks.
Should not be on insulin or any glucose lowering medications.
DNR
Anticipated Discharge: 24 - 48 hours
Subjective/Interval History
-
Date of Service: May 19, 2024
Objective Data
-
Vital Signs:
Vital Signs
Temp Pulse Resp BP Pulse Ox
98.0 F 74 20 159/64 90
05/19/24 15:21 05/19/24 15:21 05/19/24 15:21 05/19/24 15:21 05/19/24 15:21
I&O
05/18/24 05/19/24 05/20/24
06:59 06:59 06:59
Intake Total 1100 / 1100 0 / 0
Balance 1100 / 1100 0 / 0
Physical Exam
-
General: Well Developed and No Apparent Distress
HEENT: Normocephalic, Atraumatic and Moist Mucous Membranes
Respiratory: Clear to Auscultation
Cardiac: Regular Rhythm and S1/S2; Negative Murmur, Rub or Gallop
GI: Soft, Nontender, Nondistended and Normal Bowel Sounds; Negative Organomegaly
Rectal: Deferred by Provider
Musculoskeletal: No Clubbing, No Cyanosis and No Edema
Skin: Negative Rash
Neuro: Nonfocal/Grossly Intact
[2024-05-19 16:43] LABS: Glucose - Point of Care 85 mg/dl (70-99)
[2024-05-19] MEDS: NOVOLOG FLEXPEN-LOW RESISTANCE SC (16:53)
[2024-05-19] MEDS: TENORMIN 12.5 MG PO (17:05)
--- NOTE | 2024-05-19 17:11 | CM ---
adoption manager reviewed patient's chart and met with patient and patient lives in a 2nd floor apartment with 10 steps to enter, patient requires assist with adl's and ambulation, patient has a walker. patient has 24 hour caregiver Radha who sits here
in the hospital with patient and will follow patient at home. patient may benefit from equipment in home will follow.
Pharmacy [facility] in [place]
Plan; To follow with progress and review plan for patient with patient's daughters.
[2024-05-19 21:59] LABS: Glucose - Point of Care 97 mg/dl (70-99)
[2024-05-19 23:43] VITALS: BP 132/75
[2024-05-20 07:18] LABS: Glucose - Point of Care 118 mg/dl (70-99)
[2024-05-20] MEDS: NOVOLOG FLEXPEN-LOW RESISTANCE SC ×2 (07:35→17:09)
[2024-05-20] MEDS: TENORMIN 12.5 MG PO (07:47)
[2024-05-20] MEDS: HEPARIN 5000 UNITS SC ×2 (07:48→20:36)
[2024-05-20 07:54] VITALS: BP 195/70
[2024-05-20 12:53] LABS: Glucose - Point of Care 166 mg/dl (70-99)
[2024-05-20] MEDS: TYLENOL 650 MG PO (13:05)
[2024-05-20] MEDS: NOVOLOG FLEXPEN-LOW RESISTANCE 1 UNITS SC (13:05)
--- NOTE | 2024-05-20 13:19 | W.PN.UPDATE ---
Update Note
Progress Note Update
patient seen chart reviewed. spoke with raul and frank. the patient was definitely more alert but still confused. she was quite pleasant however. discussed w raul and patient who did seem to understand restarting lithium and haldol raul says that the same
pattern will emerge if we do not ...that is her mother will become psychotic and end up on a psych unit which has happened before. she had teen taking lithium haldol risperdal and benztropine. will start with a lower dose of lithium aim for blood
level of 0.5 and haldol 0.25 mg bid. i suggested risperdal but patient did not do well on this alone and haldol was started. will follow hopefully w haldol alone she will not need cogentin but would monitor for eps
[2024-05-20 15:00] VITALS: BP 155/62
--- NOTE | 2024-05-20 15:19 | PTOTSP ---
ST Acute Care Evaluation
Pt currently presents with clinical signs of mild to moderate oropharyngeal dysphagia characterized by prolonged mastication and bolus formation with a munch chew pattern, reduced bolus control of thin liquids in oral cavity, and coughing responses
following ingestion of thin liquids indicative of possible airway invasion.
Recommendations:
- Continue with soft bite sized solids with thin liquids with SMALL SIPS ONLY and NO STRAWS; meds whole in puree.
- STRICT ASPIRATION PRECAUTIONS: FULL supervision for all PO intake; pt must be fully awake, alert, and upright for all PO intake; small bites/sips; small single sips - let the pt have as much control over the cup as possible (hand over hand if
necessary), NO STRAWS; do not let her take sequential sips; alternate solids/liquids.
- Discontinue PO intake if pt is no sufficiently awake/alert of if pt demonstrates persistent s/s of penetration/aspiration at bedside.
- PRESS OPERATOR HEAVY DUTY to f/u re: diet tolerance, implementation of aspiration precautions and compensatory strategies, and to determine if pt would benefit from an updated instrumental swallow study.
--- NOTE | 2024-05-20 15:49 | W.PN.HOSP.TC ---
Today's Communication/Plan
-
Resume lithium and Haldol.
Monitor mental status
Aspiration precautions per
Physical therapy
Placement
Assessment / Plan
Assessment / Plan
Impression:
Toxic metabolic encephalopathy.
Fever.
Abnormal urinalysis
MADONNA
Conditions prior to admission:
Bipolar disorder.
Drug-induced parkinsonism
Meningioma.
Left eye blindness
Essential hypertension
Diabetes type 2 currently not on glucose lowering medications or insulin.
Plan:
Toxic metabolic encephalopathy suspect in the settings of fever, acute kidney injury likely with contribution of polypharmacy with sedative effect of benztropine, Haldol, oxybutynin
[place] level 0.8
Hold above-mentioned medications
Mental status improved with hydration and improvement of renal function.
Advance diet
Aspiration precautions.
MADONNA.
Creatinine improving with IV hydration.
Avoid nephrotoxic agents.
Monitor for retention
Bipolar disorder.
Drug-induced parkinsonism.
Given altered mental status hold lithium, Haldol, Risperdal, benztropine acutely
Mental status improved with hydration.
Discussed with psychiatry.
Plan is to resume lithium at the lower dose and 50 mg at bedtime with goal for lower level at 0.5. Resume Haldol. Hold Risperdal
Abnormal urinalysis
Fever on admission.
Urine culture with Staphylococcus species likely contaminant.
Hold off on further antibiotics and monitor closely
Hold oxybutynin acutely
Essential hypertension
Monitor blood pressure trend.
Resume atenolol
Type 2 diabetes by history.
Hemoglobin A1c 5.1.
Continue basal bolus protocol with Accu-Cheks.
Should not be on insulin or any glucose lowering medications.
DNR
Anticipated Discharge: 24 - 48 hours
Subjective/Interval History
-
Date of Service: May 20, 2024
Objective Data
-
Vital Signs:
Vital Signs
Temp Pulse Resp BP Pulse Ox
97.2 F 59 18 195/70 100
05/20/24 07:54 05/20/24 07:54 05/20/24 07:54 05/20/24 07:54 05/20/24 07:54
I&O
05/19/24 05/20/24 05/21/24
06:59 06:59 06:59
Intake Total 0 / 0 1560 / 1560
Balance 0 / 0 1560 / 1560
Physical Exam
-
General: Well Developed and No Apparent Distress
HEENT: Normocephalic, Atraumatic and Moist Mucous Membranes
Respiratory: Clear to Auscultation
Cardiac: Regular Rhythm and S1/S2; Negative Murmur, Rub or Gallop
GI: Soft, Nontender, Nondistended and Normal Bowel Sounds; Negative Organomegaly
Rectal: Deferred by Provider
Musculoskeletal: No Clubbing, No Cyanosis and No Edema
Skin: Negative Rash
Neuro: Nonfocal/Grossly Intact
--- NOTE | 2024-05-20 16:03 | CM ---
group exercise manager reviewed patient's chart and met with patient and daughter today and plan is for skilled placement when stable, daughter has requested referrals to [facility].
Plan; Skilled placement.
[2024-05-20 16:59] LABS: Glucose - Point of Care 124 mg/dl (70-99)
[2024-05-20] MEDS: HALDOL 0.25 MG PO (20:37)
[2024-05-20 20:50] LABS: Glucose - Point of Care 96 mg/dl (70-99)
[2024-05-20] MEDS: ESKALITH 150 MG PO (22:59)
[2024-05-20 23:46] VITALS: BP 170/66
[2024-05-21 07:42] VITALS: BP 154/62
[2024-05-21 08:03] LABS: Glucose - Point of Care 89 mg/dl (70-99)
[2024-05-21] MEDS: NOVOLOG FLEXPEN-LOW RESISTANCE SC ×3 (09:17→18:17)
[2024-05-21] MEDS: HALDOL 0.25 MG PO ×2 (10:05→19:43)
[2024-05-21] MEDS: TENORMIN 12.5 MG PO (10:07)
[2024-05-21] MEDS: HEPARIN 5000 UNITS SC ×2 (10:08→19:44)
[2024-05-21 11:51] LABS: Glucose - Point of Care 129 mg/dl (70-99)
--- NOTE | 2024-05-21 13:54 | CM ---
Plan is for skilled placement at [facility] when stable to increase activity level, patient will need 30 day exemption for skilled placement, physician made aware, PASRR signed by physician.
Plan; Skilled placement at [facility], bed is available on Friday for skilled placement.
--- NOTE | 2024-05-21 14:27 | W.PN.UPDATE ---
Update Note
Progress Note Update
patient seen chart reviewed. patient was more engaged today. she was convinced that she 'd been here two weeks and wanted to go home. i think i convinced her she has only been here four days. she would like to be up and around i will ask pt to
see her. she told me about caring for her grandkids when they were small. we also reminisced about tv shows that were on years ago which she and her enjoyed. continue meds as they are for now check lithium level next week.
[2024-05-21 15:29] VITALS: BP 161/63
--- NOTE | 2024-05-21 16:53 | W.PN.HOSP.TC ---
Today's Communication/Plan
-
Continue current psychiatric regimen with reduced dose of lithium.
Continue supportive care
Aspiration precautions
Medically optimized for placement to long-term facility pending bed availability.
Assessment / Plan
Assessment / Plan
Impression:
Toxic metabolic encephalopathy.
Fever.
Abnormal urinalysis
MADONNA
Conditions prior to admission:
Bipolar disorder.
Drug-induced parkinsonism
Meningioma.
Left eye blindness
Essential hypertension
Diabetes type 2 currently not on glucose lowering medications or insulin.
Plan:
Toxic metabolic encephalopathy suspect in the settings of fever, acute kidney injury likely with contribution of polypharmacy with sedative effect of benztropine, Haldol, oxybutynin
[place] level 0.8
Hold above-mentioned medications
Mental status improved with hydration and improvement of renal function.
Advance diet
Aspiration precautions.
MADONNA.
Creatinine improving with IV hydration.
Avoid nephrotoxic agents.
Monitor for retention
Bipolar disorder.
Drug-induced parkinsonism.
Given altered mental status hold lithium, Haldol, Risperdal, benztropine acutely
Mental status improved with hydration.
Discussed with psychiatry.
Plan is to resume lithium at the lower dose and 50 mg at bedtime with goal for lower level at 0.5. Resume Haldol. Hold Risperdal
Abnormal urinalysis
Fever on admission.
Urine culture with Staphylococcus species likely contaminant.
Hold off on further antibiotics and monitor closely
Hold oxybutynin acutely
Essential hypertension
Monitor blood pressure trend.
Resume atenolol
Type 2 diabetes by history.
Hemoglobin A1c 5.1.
Continue basal bolus protocol with Accu-Cheks.
Should not be on insulin or any glucose lowering medications.
DNR
Anticipated Discharge: 24 - 48 hours
Subjective/Interval History
-
Date of Service: May 21, 2024
Objective Data
-
Vital Signs:
Vital Signs
Temp Pulse Resp BP Pulse Ox
98.7 F 56 18 154/62 98
05/21/24 07:42 05/21/24 07:42 05/21/24 07:42 05/21/24 07:42 05/21/24 07:42
I&O
05/20/24 05/21/24 05/22/24
06:59 06:59 06:59
Intake Total 1560 / 1560 1380 / 1380
Balance 1560 / 1560 1380 / 1380
Physical Exam
-
General: Well Developed and No Apparent Distress
HEENT: Normocephalic, Atraumatic and Moist Mucous Membranes
Respiratory: Clear to Auscultation
Cardiac: Regular Rhythm and S1/S2; Negative Murmur, Rub or Gallop
GI: Soft, Nontender, Nondistended and Normal Bowel Sounds; Negative Organomegaly
Rectal: Deferred by Provider
Musculoskeletal: No Clubbing, No Cyanosis and No Edema
Skin: Negative Rash
Neuro: Nonfocal/Grossly Intact
[2024-05-21 17:58] LABS: Glucose - Point of Care 148 mg/dl (70-99)
[2024-05-21] MEDS: TYLENOL 650 MG PO (19:44)
[2024-05-21 21:06] LABS: Glucose - Point of Care 159 mg/dl (70-99)
[2024-05-21] MEDS: ESKALITH 150 MG PO (22:09)
[2024-05-21 23:37] VITALS: BP 160/65
[2024-05-22 07:00] VITALS: BP 185/75
[2024-05-22] MEDS: HALDOL 0.25 MG PO ×2 (07:39→20:48)
[2024-05-22] MEDS: TENORMIN 12.5 MG PO (07:40)
[2024-05-22] MEDS: HEPARIN 5000 UNITS SC ×2 (07:43→20:49)
[2024-05-22 07:48] LABS: Glucose - Point of Care 100 mg/dl (70-99)
[2024-05-22] MEDS: NOVOLOG FLEXPEN-LOW RESISTANCE SC ×3 (07:56→16:47)
--- NOTE | 2024-05-22 10:08 | W.PN.HOSP.TC ---
Today's Communication/Plan
-
Assessment / Plan
Assessment / Plan
NAD, drinking milk
Scleral Anicteric, wearing corrective lenses
MMM
No JVD
CTABL
RRR, S1/S2
Soft, NT, ND, BS+
Warm, Dry
AAOx3
Calm
Aide at bedside helping her to eat
Impression:
Toxic metabolic encephalopathy.
Fever.
Abnormal urinalysis
MADONNA
Conditions prior to admission:
Bipolar disorder.
Drug-induced parkinsonism
Meningioma.
Left eye blindness
Essential hypertension
Diabetes type 2 currently not on glucose lowering medications or insulin.
Plan:
Toxic metabolic encephalopathy suspect in the settings of fever, acute kidney injury likely with contribution of polypharmacy with sedative effect of benztropine, Haldol, oxybutynin
[place] level 0.8, resumed per psychiatry
Hold above-mentioned medications
Mental status improved with hydration and improvement of renal function.
Advance diet
Aspiration precautions.
MADONNA.
Creatinine improving with IV hydration.
Avoid nephrotoxic agents.
Monitor for retention
Bipolar disorder.
Drug-induced parkinsonism.
Given altered mental status continue to hold Risperdal, benztropine acutely, haldol and lithium was held
Mental status improved with hydration.
Discussed with psychiatry.
Plan is to resume lithium at the lower dose and 50 mg at bedtime with goal for lower level at 0.5. Resume Haldol. Hold Risperdal
Abnormal urinalysis
Fever on admission.
Urine culture with Staphylococcus species likely contaminant.
Hold off on further antibiotics and monitor closely
Hold oxybutynin acutely
Essential hypertension
Monitor blood pressure trend.
Resume atenolol
Type 2 diabetes by history.
Hemoglobin A1c 5.1.
Continue basal bolus protocol with Accu-Cheks.
Should not be on insulin or any glucose lowering medications.
DNR
Per Plan; Skilled placement at [facility], bed is available on Friday for skilled placement.
Anticipated Discharge: > 48 hours
Subjective/Interval History
-
Date of Service: May 22, 2024
Seen and examined. No new complaints. No acute overnight events.
Tolerating diet well. Bowel movement this morning
Objective Data
-
Vital Signs:
Vital Signs
Temp Pulse Resp BP Pulse Ox
97.7 F 56 19 185/75 94
05/22/24 07:00 05/22/24 07:00 05/22/24 07:00 05/22/24 07:00 05/22/24 07:00
I&O
05/21/24 05/22/24 05/23/24
06:59 06:59 06:59
Intake Total 1380 / 1380 360 / 360
Balance 1380 / 1380 360 / 360
[2024-05-22 11:41] LABS: Glucose - Point of Care 131 mg/dl (70-99)
[2024-05-22 15:00] VITALS: BP 124/44
[2024-05-22 16:26] LABS: Glucose - Point of Care 143 mg/dl (70-99)
--- NOTE | 2024-05-22 17:06 | W.PN.UPDATE ---
Update Note
Progress Note Update
89 y/o woman with history of bipolar disorder which is currently stable was admitted due to change in mental status and psych meds were held. Has been restarted on low-dose lithium and haloperidol which she is tolerating well. No need for
benztropine seen. Does not have tremor or GI upset. Last lithium level was 0.8 which will be rechecked during the week.
Pt. knows she is in a hospital, but not which one. She knows the date. Did not seem to know her address. Was concerned about stopping the 'leakage' from her vagina which is likely delusional. Is pleasant and interactive. Was being assisted with
eating dinner by her private home health aide.
Will continue medication unchanged.
Psychiatry will follow.
[2024-05-22] MEDS: ESKALITH 150 MG PO (20:49)
[2024-05-22 21:33] LABS: Glucose - Point of Care 130 mg/dl (70-99)
[2024-05-22 23:53] VITALS: BP 175/67
[2024-05-23 07:03] VITALS: BP 177/73
[2024-05-23 07:53] LABS: Glucose - Point of Care 85 mg/dl (70-99)
[2024-05-23] MEDS: NOVOLOG FLEXPEN-LOW RESISTANCE SC ×2 (07:57→16:29)
[2024-05-23] MEDS: TENORMIN 12.5 MG PO (07:58)
[2024-05-23] MEDS: HALDOL 0.25 MG PO ×2 (07:59→21:11)
[2024-05-23] MEDS: HEPARIN 5000 UNITS SC ×2 (08:00→21:12)
--- NOTE | 2024-05-23 09:21 | CM ---
manager social media reached out to patient's daughter this AM and discussed physical therapy recommendations and evaluation, patient's daughter who is a nurse partitioner stated that patient was able to ambulate with walker 5o feet with contact guard and
assist of one, per daughter patient was assist of one with bathing and dressing, patient's daughter states that patient is not at baseline and wants her skilled at [facility] referral sent to [facility], patient will be a 30 day exception.
Plan; Will need new PT/OT orders, plan is skilled placement at [facility], assistant case manager obtained patient's baseline from patient's daughter, Nirmala [phone] who is a CEO AND PRESIDENT.
--- NOTE | 2024-05-23 10:39 | W.PN.HOSP.TC ---
Today's Communication/Plan
-
Assessment / Plan
Assessment / Plan
NAD, drinking milk
Scleral Anicteric, wearing corrective lenses
MMM
No JVD
CTABL
RRR, S1/S2
Soft, NT, ND, BS+
Warm, Dry
AAOx3
Calm
Aide at bedside helping her to eat
Impression:
Toxic metabolic encephalopathy.
Fever.
Abnormal urinalysis
MADONNA
Conditions prior to admission:
Bipolar disorder.
Drug-induced parkinsonism
Meningioma.
Left eye blindness
Essential hypertension
Diabetes type 2 currently not on glucose lowering medications or insulin.
Plan:
Toxic metabolic encephalopathy suspect in the settings of fever, acute kidney injury likely with contribution of polypharmacy with sedative effect of benztropine, Haldol, oxybutynin
[place] level 0.8, resumed per psychiatry
Hold above-mentioned medications
Mental status improved with hydration and improvement of renal function.
Advance diet
Aspiration precautions.
MADONNA.
Creatinine improving with IV hydration.
Avoid nephrotoxic agents.
Monitor for retention
Bipolar disorder.
Drug-induced parkinsonism.
Given altered mental status continue to hold Risperdal, benztropine acutely, haldol and lithium was held
Mental status improved with hydration.
Discussed with psychiatry.
Plan is to resume lithium at the lower dose and 50 mg at bedtime with goal for lower level at 0.5. Resume Haldol. Hold Risperdal
Abnormal urinalysis
Fever on admission.
Urine culture with Staphylococcus species likely contaminant.
Hold off on further antibiotics and monitor closely
Hold oxybutynin acutely
Essential hypertension
Monitor blood pressure trend.
Resume atenolol
Type 2 diabetes by history.
Hemoglobin A1c 5.1.
Continue basal bolus protocol with Accu-Cheks.
Should not be on insulin or any glucose lowering medications.
DNR
Per Plan; Skilled placement at [facility], bed is available on Friday for skilled placement.
Anticipated Discharge: Within 24 hours
Subjective/Interval History
-
Date of Service: May 23, 2024
Seen and examined. No new complaints. No acute overnight events.
Objective Data
-
Vital Signs:
Vital Signs
Temp Pulse Resp BP Pulse Ox
98.5 F 57 15 177/73 98
05/23/24 07:03 05/23/24 07:03 05/23/24 07:03 05/23/24 07:03 05/23/24 07:03
I&O
05/22/24 05/23/24 05/24/24
06:59 06:59 06:59
Intake Total 360 / 360 960 / 960
Balance 360 / 360 960 / 960
--- NOTE | 2024-05-23 10:51 | W.PN.UPDATE ---
Update Note
Progress Note Update
89 y/o woman who presented with change in mental status seen for follow-up. Is back on lithium as it was reported she becomes manic without it and on haloperidol. Spoke to nurse and tech, reviewed chart and private aide in room. She is alert and
pleasant. Disoriented to name of hospital and day of week, but knows she is in a hospital. Speech is well-articulated without word-finding problems. No tremor on extension and has been able to feed herself. No signs of dystonia or akathisia.
Perhaps very mild dyskinetic movements of lips. Recalled well what she had for breakfast today.
[place] level is ordered for tomorrow morning. Psychiatry will follow. Christi back to baseline without any signs of depression, agapito or psychosis.
[2024-05-23 11:11] LABS: Glucose - Point of Care 171 mg/dl (70-99)
[2024-05-23] MEDS: NOVOLOG FLEXPEN-LOW RESISTANCE 1 UNITS SC (11:35)
[2024-05-23 15:45] VITALS: BP 117/48; PULSE 94; O2SAT 94
[2024-05-23 15:59] VITALS: BP 117/48
[2024-05-23 16:19] LABS: Glucose - Point of Care 118 mg/dl (70-99)
[2024-05-23] MEDS: ESKALITH 150 MG PO (21:12)
[2024-05-23 21:43] LABS: Glucose - Point of Care 165 mg/dl (70-99)
[2024-05-23 23:28] VITALS: BP 157/51
[2024-05-24 07:29] VITALS: BP 163/70
[2024-05-24 07:43] LABS: Glucose - Point of Care 98 mg/dl (70-99)
[2024-05-24] MEDS: NOVOLOG FLEXPEN-LOW RESISTANCE SC ×2 (07:56→16:59)
[2024-05-24] MEDS: TENORMIN 12.5 MG PO (07:56)
[2024-05-24] MEDS: HEPARIN 5000 UNITS SC ×2 (07:57→20:41)
[2024-05-24] MEDS: HALDOL 0.25 MG PO ×2 (07:57→20:43)
[2024-05-24 09:52] LABS: Lithium 0.2 mmol/L (0.6-1.2)
[2024-05-24 10:59] VITALS: BP 107/49; BP_SYST 98; PULSE 62
[2024-05-24 11:08] LABS: Glucose - Point of Care 152 mg/dl (70-99)
[2024-05-24] MEDS: NOVOLOG FLEXPEN-LOW RESISTANCE 1 UNITS SC (12:47)
--- NOTE | 2024-05-24 12:57 | CM ---
Addendum entered by Giuliana Horne 05/24/24 13:05:
Patient's daughter has selected [facility], [facility], [facility], and [facility], referrals sent.
Original Note:
net development manager reached out to [facility] and there are no beds available today, admissions at looking at tomorrow, patient will be a 30 day exemption. net development manager will discuss with other skilled options with patient's daughter.
Plan; Skilled placement, per daughter patient is not at baseline.
[2024-05-24 15:28] VITALS: BP 124/52
--- NOTE | 2024-05-24 15:45 | W.PN.UPDATE ---
Update Note
Progress Note Update
Pt seen, with home health aid present, who reports pt was up in chair, able to get up to the bathroom earlier. Pt now asleep, was tired after being up. [place] level 0.2 at 820 am this morning, after 4th dose of 150 mg HS, resumed on 05/20/24.
Pt's home dose of [place] has been maintained at 300 mg HS long-term. Creatinine 1.0 on 05/18.
Imp: Bipolar d/o by history, mood appears to be at baseline
TME, multifactorial, improving
Rec: will titrate up [place]- resume long-standing dose of 300 mg HS, given history of recurrence of agapito when [place] was held in the recent past
continue established low dose of Haldol 0.25 mg BID
will follow
[2024-05-24 15:51] LABS: Glucose - Point of Care 120 mg/dl (70-99)
--- NOTE | 2024-05-24 16:19 | W.PN.HOSP.TC ---
Today's Communication/Plan
-
Medically optimized for placement to skilled rehab pending bed availability and insurance authorization.
Assessment / Plan
Assessment / Plan
Impression:
Toxic metabolic encephalopathy.
Fever.
Abnormal urinalysis
MADONNA
Conditions prior to admission:
Bipolar disorder.
Drug-induced parkinsonism
Meningioma.
Left eye blindness
Essential hypertension
Diabetes type 2 currently not on glucose lowering medications or insulin.
Plan:
Toxic metabolic encephalopathy suspect in the settings of fever, acute kidney injury likely with contribution of polypharmacy with sedative effect of benztropine, Haldol, oxybutynin
[place] level 0.8, resumed per psychiatry
Hold above-mentioned medications
Mental status improved with hydration and improvement of renal function.
Advance diet
Aspiration precautions.
MADONNA.
Creatinine improving with IV hydration.
Avoid nephrotoxic agents.
Monitor for retention
Bipolar disorder.
Drug-induced parkinsonism.
Given altered mental status continue to hold Risperdal, benztropine acutely, haldol and lithium was held
Mental status improved with hydration.
Discussed with psychiatry.
Plan is to resume lithium at the lower dose and 50 mg at bedtime with goal for lower level at 0.5. Resume Haldol. Hold Risperdal
Abnormal urinalysis
Fever on admission.
Urine culture with Staphylococcus species likely contaminant.
Hold off on further antibiotics and monitor closely
Hold oxybutynin acutely
Essential hypertension
Monitor blood pressure trend.
Resume atenolol
Type 2 diabetes by history.
Hemoglobin A1c 5.1.
Continue basal bolus protocol with Accu-Cheks.
Should not be on insulin or any glucose lowering medications.
DNR
Anticipated Discharge: 24 - 48 hours
Subjective/Interval History
-
Date of Service: May 24, 2024
Objective Data
-
Vital Signs:
Vital Signs
Temp Pulse Resp BP Pulse Ox
98.9 F 58 18 124/52 96
05/24/24 15:28 05/24/24 15:28 05/24/24 15:28 05/24/24 15:28 05/24/24 15:28
I&O
05/23/24 05/24/24 05/25/24
06:59 06:59 06:59
Intake Total 960 / 960 480 / 480
Balance 960 / 960 480 / 480
Physical Exam
-
General: Well Developed and No Apparent Distress
HEENT: Normocephalic, Atraumatic and Moist Mucous Membranes
Respiratory: Clear to Auscultation
Cardiac: Regular Rhythm and S1/S2; Negative Murmur, Rub or Gallop
GI: Soft, Nontender, Nondistended and Normal Bowel Sounds; Negative Organomegaly
Rectal: Deferred by Provider
Musculoskeletal: No Clubbing, No Cyanosis and No Edema
Skin: Negative Rash
Neuro: Nonfocal/Grossly Intact
[2024-05-24] MEDS: ESKALITH REGULAR RELEASE 300 MG PO (21:00)
[2024-05-24 21:44] LABS: Glucose - Point of Care 159 mg/dl (70-99)
[2024-05-24 23:55] VITALS: BP 128/54
[2024-05-25 07:50] VITALS: BP 150/68
[2024-05-25] MEDS: TENORMIN 12.5 MG PO (08:00)
[2024-05-25] MEDS: HEPARIN 5000 UNITS SC ×2 (08:00→21:11)
[2024-05-25] MEDS: NOVOLOG FLEXPEN-LOW RESISTANCE SC ×3 (08:00→16:59)
[2024-05-25] MEDS: HALDOL 0.25 MG PO ×2 (08:00→21:09)
[2024-05-25 08:13] LABS: Glucose - Point of Care 92 mg/dl (70-99)
[2024-05-25 08:17] VITALS: BP 150/68
[2024-05-25 10:00] VITALS: BP 139/63; O2SAT 96
[2024-05-25 11:20] LABS: Glucose - Point of Care 126 mg/dl (70-99)
--- NOTE | 2024-05-25 12:13 | CM ---
Addendum entered by Giuliana Horne 05/25/24 16:41:
manager reading spoke with insurance and obtained Auth for tomorrow, patient has been approved for 6 days skilled 05/26 to 05/31, [id number], follow up with [phone], Auth provided to admissions at [facility].
Original Note:
manager reading reviewed patient's chart and spoke with patient's daughter, plan remains for skilled placement, patient's daughter had agreed to referrals to [facility] and both facilities denied patient. Patient requires a
30 day exemption. Per admissions at [facility] they can accept patient tomorrow after 1pm, rn case mgr will reach out to patient's insurance for Auth.
[facility]

Dr Ronny Dean
Plan; Skilled placement at [facility] tomorrow.
[2024-05-25] MEDS: TYLENOL 650 MG PO (12:49)
[2024-05-25 15:00] VITALS: BP 120/62
--- NOTE | 2024-05-25 16:33 | W.PN.HOSP.TC ---
Today's Communication/Plan
-
Continue supportive care
Continue current psychiatric regimen
Oral intake sufficient with mental status at the baseline
Pending placement
Assessment / Plan
Assessment / Plan
Impression:
Toxic metabolic encephalopathy.
Fever.
Abnormal urinalysis
MADONNA
Conditions prior to admission:
Bipolar disorder.
Drug-induced parkinsonism
Meningioma.
Left eye blindness
Essential hypertension
Diabetes type 2 currently not on glucose lowering medications or insulin.
Plan:
Toxic metabolic encephalopathy suspect in the settings of fever, acute kidney injury likely with contribution of polypharmacy with sedative effect of benztropine, Haldol, oxybutynin
[place] level 0.8, resumed per psychiatry
Hold above-mentioned medications
Mental status improved with hydration and improvement of renal function.
Advance diet
Aspiration precautions.
MADONNA.
Creatinine improving with IV hydration.
Avoid nephrotoxic agents.
Monitor for retention
Bipolar disorder.
Drug-induced parkinsonism.
Given altered mental status continue to hold Risperdal, benztropine acutely, haldol and lithium was held
Mental status improved with hydration.
Discussed with psychiatry.
Plan is to resume lithium at the lower dose and 50 mg at bedtime with goal for lower level at 0.5. Resume Haldol. Hold Risperdal
Abnormal urinalysis
Fever on admission.
Urine culture with Staphylococcus species likely contaminant.
Hold off on further antibiotics and monitor closely
Hold oxybutynin acutely
Essential hypertension
Monitor blood pressure trend.
Resume atenolol
Type 2 diabetes by history.
Hemoglobin A1c 5.1.
Continue basal bolus protocol with Accu-Cheks.
Should not be on insulin or any glucose lowering medications.
DNR
Anticipated Discharge: Within 24 hours
Subjective/Interval History
-
Date of Service: May 25, 2024
Objective Data
-
Vital Signs:
Vital Signs
Temp Pulse Resp BP Pulse Ox
97.8 F 60 19 120/62 99
05/25/24 15:00 05/25/24 15:00 05/25/24 15:00 05/25/24 15:00 05/25/24 15:00
I&O
05/24/24 05/25/24 05/26/24
06:59 06:59 06:59
Intake Total 480 / 480 360 / 360 580 / 580
Balance 480 / 480 360 / 360 580 / 580
Physical Exam
-
General: Well Developed and No Apparent Distress
HEENT: Normocephalic, Atraumatic and Moist Mucous Membranes
Respiratory: Clear to Auscultation
Cardiac: Regular Rhythm and S1/S2; Negative Murmur, Rub or Gallop
GI: Soft, Nontender, Nondistended and Normal Bowel Sounds; Negative Organomegaly
Rectal: Deferred by Provider
Musculoskeletal: No Clubbing, No Cyanosis and No Edema
Skin: Negative Rash
Neuro: Nonfocal/Grossly Intact
[2024-05-25 16:58] LABS: Glucose - Point of Care 110 mg/dl (70-99)
[2024-05-25] MEDS: ESKALITH REGULAR RELEASE 300 MG PO (21:11)
[2024-05-25 21:40] LABS: Glucose - Point of Care 149 mg/dl (70-99)
[2024-05-25 23:20] VITALS: BP 142/57
[2024-05-26 07:00] VITALS: BP 150/65
[2024-05-26] MEDS: NOVOLOG FLEXPEN-LOW RESISTANCE SC ×2 (08:13→11:22)
[2024-05-26] MEDS: HEPARIN 5000 UNITS SC (08:20)
[2024-05-26] MEDS: TENORMIN 12.5 MG PO (08:20)
[2024-05-26] MEDS: HALDOL 0.25 MG PO (08:20)
[2024-05-26 08:45] LABS: Glucose - Point of Care 100 mg/dl (70-99)
--- NOTE | 2024-05-26 11:12 | W.DS.TRANS ---
DC Summary - [employer]
-
Discharge Instructions:
Discharge Diagnosis/Procedures Toxic metabolic encephalopathy.
Acute kidney injury secondary to dehydration.
Bipolar disorder.
Essential hypertension
Diet-controlled diabetes
Diet Regular
Instructions:
Stand-Alone Forms:
Changes to Home Medications: Yes
Discharge Medications:
DC Medications w/original date entered in [employer]
aspirin 81 mg tablet,delayed release 81 mg PO Q48H Blood Clot Prevention/Tx 08/26/23
oxybutynin chloride 5 mg tablet 5 mg PO BID Urinary Issue 08/26/23
haloperidol 0.5 mg tablet 0.25 mg PO BID mental health 02/16/24
atenolol 25 mg tablet 12.5 mg PO DAILY 05/17/24
lithium carbonate 150 mg capsule 300 mg PO HS 05/17/24
loperamide 2 mg tablet 2 mg PO Q4HPRN PRN diarrhea 05/17/24
Home Medication Changes
Risperidone discontinued.
Trazodone discontinued.
Pending Results: No
[2024-05-26 11:18] LABS: Glucose - Point of Care 140 mg/dl (70-99)
--- NOTE | 2024-05-26 11:55 | W.PN.HOSP.TC ---
Today's Communication/Plan
-
Discharge
Assessment / Plan
Assessment / Plan
Impression:
Toxic metabolic encephalopathy.
Fever.
Abnormal urinalysis
MADONNA
Conditions prior to admission:
Bipolar disorder.
Drug-induced parkinsonism
Meningioma.
Left eye blindness
Essential hypertension
Diabetes type 2 currently not on glucose lowering medications or insulin.
Plan:
Toxic metabolic encephalopathy suspect in the settings of fever, acute kidney injury likely with contribution of polypharmacy with sedative effect of benztropine, Haldol, oxybutynin
[place] level 0.8, resumed per psychiatry
Hold above-mentioned medications
Mental status improved with hydration and improvement of renal function.
Advance diet
Aspiration precautions.
MADONNA. Resolved
Creatinine improving with IV hydration.
Avoid nephrotoxic agents.
Monitor for retention
Bipolar disorder.
Drug-induced parkinsonism.
Given altered mental status continue to hold Risperdal, benztropine acutely, haldol and lithium was held
Mental status improved with hydration.
Discussed with psychiatry.
Plan is to resume lithium at the lower dose and 50 mg at bedtime with goal for lower level at 0.5. Resume Haldol. Hold Risperdal
Abnormal urinalysis
Fever on admission.
Urine culture with Staphylococcus species likely contaminant.
Hold off on further antibiotics and monitor closely
Hold oxybutynin acutely
Essential hypertension
Monitor blood pressure trend.
Resume atenolol
Type 2 diabetes by history.
Hemoglobin A1c 5.1.
Continue basal bolus protocol with Accu-Cheks.
Should not be on insulin or any glucose lowering medications.
DNR
Disposition to intermediate facility for rehab.
Patient will require less than 30 days intermediate home services and patients symptoms and behaviors are stable
Anticipated Discharge: Today
Subjective/Interval History
-
Date of Service: May 26, 2024
Objective Data
-
Vital Signs:
Vital Signs
Temp Pulse Resp BP Pulse Ox
98.1 F 55 19 150/65 97
05/26/24 07:00 05/26/24 07:00 05/26/24 07:00 05/26/24 07:00 05/26/24 08:00
I&O
05/25/24 05/26/24 05/27/24
06:59 06:59 06:59
Intake Total 360 / 360 1000 / 1000 240 / 240
Balance 360 / 360 1000 / 1000 240 / 240
Physical Exam
-
General: Well Developed and No Apparent Distress
HEENT: Normocephalic, Atraumatic and Moist Mucous Membranes
Respiratory: Clear to Auscultation
Cardiac: Regular Rhythm and S1/S2; Negative Murmur, Rub or Gallop
GI: Soft, Nontender, Nondistended and Normal Bowel Sounds; Negative Organomegaly
Rectal: Deferred by Provider
Musculoskeletal: No Clubbing, No Cyanosis and No Edema
Skin: Negative Rash
Neuro: Nonfocal/Grossly Intact
--- NOTE | 2024-05-26 12:50 | CM ---
build manager reviewed patient's chart and patient has been cleared for discharge today, update provided to admissions at [facility] along with PASRR and 30 day exemption documentation, employment case manager spoke with patient's daughter who has been
updated, and asked employment case manager to reach out to her brother in law to pay for transport, message left with Levi [phone] to pay $120 for transport. IMM discussed by phone and placed on patient's chart.
[facility]
Report [phone]
[2024-05-26 15:00] VITALS: BP 113/50
== END 2024-05-26 15:51 | DRG 682 ==
LOC: 4 WEST ACU 15:31
PROVIDERS: Psychiatry & Neurology Psychiatry; ADMITTING PHYSICIAN Hospitalist; ATTENDING PHYSICIAN Internal Medicine; CONSULT PHYSICIAN Psychiatry & Neurology Psychiatry; EMERGENCY PHYSICIAN Emergency Medicine
DX: N17.9 Acute kidney failure, unspecified (principal); G92.8 Other toxic encephalopathy; E44.0 Moderate protein-calorie malnutrition; G21.19 Other drug induced secondary parkinsonism; Z87.891 Personal history of nicotine dependence; F31.9 Bipolar disorder, unspecified; I10 Essential (primary) hypertension; E11.9 Type 2 diabetes mellitus without complications; Z66 Do not resuscitate; D32.9 Benign neoplasm of meninges, unspecified; H54.62 Unqualified visual loss, left eye, normal vision right eye; Z68.23 Body mass index [BMI] 23.0-23.9, adult; D64.9 Anemia, unspecified; J06.9 Acute upper respiratory infection, unspecified
CPT/HCPCS: 71045; 80053; 80178; 81003; 81015; 82550; 82962; 83036; 83605; 85025; 87040; 87070; 87086; 87147; 87186; 87502; 87811; 92526; 92610; 96360; 97162; 97167; 97530; 97535; 99285

== ENCOUNTER 2024-08-15 18:03 | Inpatient (IN) | payer OTHER, SELFPAY ==
[2024-08-15] VITALS (9 sets, daily range): BP systolic 110–170; BP diastolic 48–78; BMI 23.8; BMI 21.2
[2024-08-15] MEDS: NSS 500 IV (14:58)
[2024-08-15 15:21] LABS: Urine Albumin 2+ (Neg - Trace); Urine Bilirubin Negative (Negative); Urine Character Clear (Clear); Urine Color Yellow; Urine Glucose Negative (Negative); Urine Ketone Negative (Negative); Urine Leukocyte 3+ (Negative); Urine Nitrite Negative (Negative); Urine Occult Blood Negative (Negative); Urine Specific Gravity 1.015 (<1.030); Urine Urobilinogen Negative (Neg - 1+)
[2024-08-15 15:21] LABS: % Basophils 0.3 % (0-2); % Immature Granulocytes 0.4 % (0-0.5); % Lymphocytes 11.5 % (20.5-51.1); % Monocytes 8.3 % (1.7-9.3); % Neutrophils 76.5 % (42.2-75.2); Absolute Eosinophils 0.2 10^3/uL (0-0.7); Absolute Lymphocytes 0.9 10^3/uL (1.2-3.4); Absolute Monocytes 0.6 10^3/uL (0.1-0.6); Absolute Neutrophils 5.6 10^3/uL (1.4-6.5); Hematocrit 27.4 % (37.0-47.0); Hemoglobin 8.3 g/dL (12.0-16.0); Mean Corp Hgb Conc. 30.3 g/dL (33.0-37.0); Mean Corpuscular Hgb 26.4 pg (27.0-31.0); Mean Corpuscular Volume 87.3 fL (81.0-99.0); Mean Platelet Volume 11.9 fL (7.4-10.4); Nucleated Red Blood Cells % 0 %; Platelet Count 145 10^3/uL (130-400); Red Blood Cell Count 3.14 10^6/uL (4.20-5.40); Red Cell Dist. Width 15.9 % (11.5-14.5); White Blood Cell Count 7.4 10^3/uL (4.8-10.8)
[2024-08-15 15:32] LABS: Urine Red Blood Cell 0-2 /HPF (0-2); Urine Squamous Cell 0-2 /LPF (Few)
[2024-08-15 15:33] LABS: Urine Bacteria Few (Negative)
[2024-08-15 15:34] LABS: Urine White Cell 60-70 /HPF (0-5)
[2024-08-15 15:49] LABS: Blood Urea Nitrogen 28 mg/dl (7-17); Calcium 10.2 mg/dl (8.4-10.2); Carbon Dioxide 25 mmol/L (22-30); Chloride 104 mmol/L (98-107); Estimated Creatinine Clearance 26 ml/min; Glucose 105 mg/dl (70-99); Sodium 136 mmol/L (135-145); eGFR 43.27
[2024-08-15 16:13] LABS: Potassium 4.3 mmol/L (3.5-5.1)
--- NOTE | 2024-08-15 16:58 | ED.GENMED ---
History of Present Illness
General
Chief Complaint: Change in Mental Status
Source: family (Daughter)
Exam Limitations: none
Time Seen by Provider: 08/15/24 14:33
Nursing documentation reviewed up to this point in time: agreed with
History of Present Illness
History of Present Illness:
Patient to ED for eval of weakness and lethargy. Daughter states patient stopped eating/drinking 2 days ago. Sleeping most of day. Patient is independent and lives in an apartment with a live in Aide. Daughter states patient is now needing max
assist to stand/transfer. No fever/chills. Brought to ED via EMS for eval.
Past History
Past History
ED Past Medical History: Arrthythmia (WPW), HTN, IDDM, Psychiatric (Bipolar, Depression) and Other (IBS, Parkinson's , UTI, Blind Left eye, Diverticulitis)
ED Past Surgical History: Cholecystectomy and Gynecological (Hysterectomy)
Social History
Tobacco: Former smoker
Alcohol: None
Personal:
Living: with family (resident caregiver)
Employment: Retired
Review of Systems
Review of Systems
Allergies reviewed?: Yes
All Other Systems: ROS reviewed and negative except as documented in HPI and ROS
Constitutional: Reports fatigue
EENT: Reports no symptoms
Respiratory: Reports no symptoms
Cardiac: Reports no symptoms
ABD/GI: Reports anorexia
: Reports no symptoms
Musculoskeletal: Reports no symptoms
Skin: Reports no symptoms
Neurological: Reports weakness
Psychiatric: Reports no symptoms
Phy Exam
General Physical Exam
General Presentation: no apparent distress
General age: appears stated age
General Skin: warm and dry
General Habitus: frail
General Mental: alert
Cardiovascular Exam
Cardiovascular Exam: regular rate/rhythm and no edema
Pulmonary Exam
Pulmonary Exam: lungs clear and no respiratory distress
Gastrointestinal Exam
Gastrointestinal Exam: normal bowel sounds, non tender, soft, no organomegaly, no pulsatile mass, non distended and no cva tenderness
Rectal Exam: soft stool
Stool: brown
Guaiac Status: positive
Musculoskeletal Exam
Musculoskeletal Exam: full ROM and neuro vasc intact
Skin Exam
Skin Exam: normal color, warm/dry and no rash
Psychiatric Exam
Psychiatric Exam: normal mood/affect
Sepsis
Sepsis Screening
Sepsis Assessment: Sepsis Ruled Out
Sepsis Screen
Sepsis Screen: Sepsis Ruled Out
Date: 08/15/24
Time: 22:58
Course
Orders/Labs/Results
Orders:
Orders
08/15/24 14:34
0.9% Sodium Chloride 500 ml [Nss] 500 ml IV BOLUS
08/15/24 Dinner
Clear Liquid
At Your Request: Full Participation
08/15/24 15:01
Basic Metabolic Panel Urgent
Complete Blood Count/With Diff Urgent
08/15/24 15:15
Urinalysis Reflex To Culture Urgent
Date Specimen was Collected: 08/15/24
Time Specimen was Collected: 15:14
Urine Microscopic Reflex Cult Urgent
Urine Culture Urgent
JOVANY Source: U
Specimen Description:
Date Specimen was Collected: 08/15/24
Time Specimen was Collected: 15:14
08/15/24 15:55
Ferritin Urgent
Comment: ADD ON
Folate Urgent
Comment: ADD ON
Iron Urgent
Comment: ADD ON
[place] Urgent
Comment: ADD ON
Potassium Urgent
Total Iron Binding Urgent
Comment: ADD ON
Vitamin B12 Urgent
Comment: ADD ON
08/15/24 16:56
Pantoprazole [Protonix IV] 40 mg IV NOW STA
08/15/24 16:59
CT Head W/o Iv Contrast Urgent
Comment:
Reason For Exam: change in mental status
08/15/24 17:00
0.9% Sodium Chloride 1000 ml [Nss] 1,000 ml IV 60 mls/hr
08/15/24 17:16
Add On- LAB Urgent
Tests Added?: ferritin, iron, TIBC, B12, folate, [place] level
08/15/24 17:45
Admit/Transfer Patient As Directed
Co-Sign Provider:
Level of Care: Inpatient admission
Assign to:: Telemetry
Physician / Group: bisi dumont
Diagnosis: tme 2/2 to uti, weakness/ gloria 2/2 uti/volume depletion
Reason for Telemetry: Arrhythmia
Date to Stop Telemetry: 08/18/24
Time to Stop Telemetry: 11:00
Reason for Hospitalization: tme 2/2 to uti, weakness/ gloria 2/2 uti/volume depletion
Expected length of stay greater than two midnights?: Yes
ELOS- Estimated Length of Stay in days: 3
I certify the patient meets the requirements for IP care: Yes
08/15/24 17:48
PRN Pain Medication Management As Directed
May give lesser potent ordered pain med per pt: Yes
preference::
Protocol:: Medication orders for pain may be administered in a
manner that supports deferring to patient preference
when the pt is:
- Requesting an ordered lesser potent pain medication.
Least to most potent pain medications are defined
as: acetaminophen < NSAID < tramadol < opioids
(morphine, oxycodone, hydromorphone).
- Requesting a lesser dose of the same medication IF
ORDERED.
- Requesting a less intrusive route of administration
if both routes are prescribed by the provider (PO <
IV).
08/15/24 19:39
Acetaminophen [Tylenol] 650 mg PO Q4HPRN PRN
Ondansetron Injectable [Zofran] 4 mg IV Q6HPRN PRN
08/15/24 19:39
Activity As Directed
Activity Level: With Assistance
Intake/ Output As Directed
Frequency: Per unit guidelines
Pneumatic Compression Sleeves As Directed
Type: Knee high
Vital Signs As Directed
Frequency: Per unit guidelines
Weight As Directed
Frequency: Daily
Ot Eval And Treat Routine
Pt Eval And Treat Routine
Activity Level: With Assistance
DX Deep Vein Thrombosis Video Routine
08/15/24 19:55
Loperamide [Imodium] 2 mg PO Q4HPRN PRN
08/15/24 20:00
Benztropine [Cogentin] 0.5 mg PO BID
08/15/24 21:27
Type And Crossmatch [Type+Screen] Urgent
08/15/24 22:00
[place] Carbonate Regular Rel. [Eskalith Regular Release] 300 mg PO HS
Oxybutynin Chloride [Ditropan] 5 mg PO QID
08/16/24 06:00
Complete Blood Count/With Diff IN AM
Comprehensive Metabolic Panel IN AM
Magnesium IN AM
08/16/24 08:00
Atenolol [Tenormin] 12.5 mg PO DAILY
Pantoprazole [Protonix IV] 40 mg IV DAILY
Risperidone [Risperdal] 0.5 mg PO DAILY
08/17/24 06:00
Complete Blood Count/With Diff IN AM
Comprehensive Metabolic Panel IN AM
08/18/24 06:00
Complete Blood Count/With Diff IN AM
Comprehensive Metabolic Panel IN AM
08/18/24 11:00
DC Protocol for Telemetry ONCE
Abnormal Lab Results
08/15/24 08/15/24 08/15/24
15:01 15:15 15:55
RBC 3.14 L 10^6/uL
(4.20-5.40)
Hgb 8.3 L g/dL
(12.0-16.0)
Hct 27.4 L %
(37.0-47.0)
MCH 26.4 L pg
(27.0-31.0)
MCHC 30.3 L g/dL
(33.0-37.0)
RDW 15.9 H %
(11.5-14.5)
MPV 11.9 H fL
(7.4-10.4)
Absolute Lymphs (auto) 0.9 L 10^3/uL
(1.2-3.4)
Neutrophils % 76.5 H %
(42.2-75.2)
Lymphocytes % 11.5 L %
(20.5-51.1)
BUN 28 H mg/dl
(7-17)
Creatinine 1.2 H mg/dL
(0.6-1.0)
Glucose 105 H mg/dl
(70-99)
% Saturation 13 L %
(20-50)
Leukocyte Esterase Rfl 3+ A
(Negative)
Urine WBC (Reflex) 60-70 A /HPF
(0-5)
Urine Bacteria (Reflex) Few A
(Negative)
Urine Albumin (Reflex) 2+ A
(Neg - Trace)
08/15/24 15:01
08/15/24 15:55
Vital Signs
Initial and Last Documented VS:
Initial Vital Signs
BP
152/60
08/15/24 14:39
Last Documented Vital Signs
Temp Pulse Resp BP Pulse Ox
97.2 F 55 18 164/78 96
08/15/24 19:44 08/15/24 19:44 08/15/24 19:44 08/15/24 19:44 08/15/24 21:00
*Critical Care Note
Total Time (30-74mins, 75-104mins- exclusive of procedures): Not Applicable
Update Note
Update Note:
Patient to ED for weakness, fatigue, not eating or drinking x 2 days. Sleeping but arousable. Afebrile. Labs reviewed. UA pos for UTI, cefepime initiated. Hg 8.3 which is down from her last Hgb of 9.5. Rectal exam completed, stool heme pos.
IVF infusing, pantoprazole initiated. Will admit to hospitalist service.
ED Attending Note
-
Portions of this chart may have been created with voice recognition software.� Occasional wrong word or��sound alike� substitutions may have occurred due to the inherent limitations of voice recognition software.
Discharge Plan
Departure
Patient Disposition: Admit
Date of Disposition: 08/15/24
Time of Disposition: 17:05
Presentation/result/management discussed w/ accepting MD/DO: Hospitalist
Patient with high blood pressure during this ER visit?: No
Condition: Fair
Covid-19: Not Applicable
Discharge Problem:
Acute UTI, Weakness, Anemia, GI bleeding
Interventions
Interventions:
*Risk Screen - Suicide Last Done: 08/15/24 14:46
*General Assessment Last Done: 08/15/24 14:46
*Neglect/Abuse Screening Last Done: 08/15/24 14:46
*ED- Fall Risk Assessment Last Done: 08/15/24 14:54
*ED COVID-19 Vaccine History Last Done: 08/15/24 14:54
*Nursing Disposition Last Done: 08/15/24 20:24
ED- Pulmonary Assessment Last Done: 08/15/24 17:08
ED-Psychological Assessment Last Done: 08/15/24 20:24
ED- Neurological Assessment Last Done: 08/15/24 14:54
ED- Cardiac Assessment Last Done: 08/15/24 14:54
Discharge Date and Time
Discharge Date/Time: 08/15/24 20:25
--- NOTE | 2024-08-15 17:18 | HPS.HSE ---
Family Physician
-
Family Physician: NOT KNOW UNKNOWN - PT DOES
Chief Complaint
-
Decreased oral intake x 2 days, weakness, lethargy, urinary frequency decreased appetite, headache
History of Present Illness
89-year-old female who lives independently in an apartment with a live-in aide stopped eating and drinking 2 days ago according to her daughter. She was brought to the ER for evaluation of weakness and lethargy she is a max assist to stand and
transfer after not eating and drinking. The patient complains of urinary frequency, decreased appetite along with headache. She is oriented to first and last name, place, year but not president thinks it is Biden. The daughter denies fever,
chills, chest pain, palpitations, cough, shortness of breath, abdominal pain, nausea, vomiting, diarrhea. The patient has past medical history of bipolar disorder, depression, HTN, WPW, DM 2�diet controlled, protein calorie malnutrition�BMI 23,
UTI, Parkinson's, IBS, blind left eye, diverticulitis, former smoker. Myself and Dr. Ge spoke with the patient's daughter Nirmala over the phone obtain verbal consent for blood if needed this was obtained and scanned into the chart.
The patient had a recent admission 05/17 - 05/26/2024 for TME secondary to dehydration/acute kidney injury. She was negative for any bacterial source she was given IV fluids and MADONNA improved with hydration. She had A1c of 5.1.
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
Medical History
Past Medical History
Past Medical History: Reports Other (diabetes, sinus bradycardia, hypertension, drug-induced Parkinson disease, bipolar disorder, meningioma, chronic normocytic anemia, leukopenia, IBS)
Past Surgical History: Reports Other (Cholecystectomy and Gynecological (Hysterectomy))
Social History
Tobacco: Non-smoker
Alcohol: None
Drug: None
Personal: Single
Living: With Roomate (Patient has a personal trainer that lives with her)
Employment: Retired
Family History
Family History: Not pertinent
Allergies / Home Medications
Allergies reflects when Allergies were last updated in [facility].
Home Medications with original date entered in [facility]
Allergy/Medication List:
Allergies
Allergy/AdvReac Type Severity Reaction Status Date / Time
No Known Allergies Allergy Verified 05/17/24 13:39
Home Medications
aspirin 81 mg tablet,delayed release 81 mg PO Q48H Blood Clot Prevention/Tx 08/26/23
atenolol 25 mg tablet 12.5 mg PO DAILY 05/17/24
loperamide 2 mg tablet 2 mg PO Q4HPRN PRN diarrhea 05/17/24
benztropine 0.5 mg tablet 0.5 mg PO BID 08/15/24
insulin glargine 100 unit/mL (3 mL) subcutaneous pen (Lantus Solostar U-100 Insulin) 5 unit SC QPM 08/15/24
lithium carbonate 300 mg capsule 300 mg PO HS 08/15/24
oxybutynin chloride 5 mg tablet,extended release 24 hr 5 mg PO BID 08/15/24
risperidone 0.5 mg tablet (Risperdal) 0.5 mg PO DAILY 08/15/24
Review of Systems
-
History Source: Patient and Family (Daughter Nirmala via phone)
A 12 point ROS was completed and negative except as noted: Yes
Constitutional: Reports Fatigue; Denies Fever or Chills
EENT: Denies Sore Throat or Runny Nose
Respiratory: Denies Cough or Trouble Breathing
Cardiac: Denies Chest Pain, Diaphoresis, Palpitations or Syncope
Abdomen/GI: Reports Other (Decreased appetite); Denies Abdominal Pain, Nausea, Vomiting, Diarrhea or Constipated
: Reports Frequency; Denies Dysuria, Flank Pain, Difficulty Voiding or Urgency
Musculoskeletal: Denies Joint Pain or Edema
Skin: Denies Itching or Rash
Neurological: Reports Headache; Denies Dizzy
Endocrine: Reports No Symptoms
Hematologic/Lymphatic: Reports No Symptoms
Psych: Reports Calm
Physical Exam
Vital Signs
Vital Signs
Temp Pulse Resp BP Pulse Ox
97.4 F 59 13 159/73 99
08/15/24 14:46 08/15/24 15:45 08/15/24 15:45 08/15/24 15:05 08/15/24 15:45
Physical Exam
General: Other (Lethargic); No Fever or Chills
HEENT: NormoCephalic, Anicteric, Moist mucous membranes, PERRLA, Edson Conjunctivae and No Ptosis
Respiratory: Clear; No Wheezes, Rales or Rhonchi
Cardiac: S1/S2 and Regular Rhythm; No Murmur, Rub, Gallop or Peripheral Edema
Breast: Deferred by me
GI: Soft, Non Tender, Non Distended, Normal Bowel Sounds and No Hepatosplenomegaly
Rectal: Deferred by Provider
Genito-urinary: Deferred by me
Musculoskeletal: No Clubbing, No Cyanosis and No Edema
Neuro: Cranial Nerves Intact, No Sensory Deficits and Other (Lethargic but oriented to first and last name, place, year but not president, speech is slow to come out but clear); No Slurred Speech, Facial Droop or Tremors
Psych: Calm
Laboratory Results
-
08/15/24 15:01
08/15/24 15:55
Laboratory Results
Total Bilirubin Cancelled 08/15/24 15:01
AST Cancelled 08/15/24 15:01
ALT Cancelled 08/15/24 15:01
Alkaline Phosphatase Cancelled 08/15/24 15:01
Data Reviewed
-
CT Scan: Report Reviewed by me
Lab Data: Labs Reviewed by me
Impression/Plan
-
Impression/plan:
Admit to telemetry
# TME/weakness 2/2 UTI
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
WBC 7.4, afebrile 97.4, HR 59
- Urinalysis with culture
-IV NSS 500 cc bolus given in ER IV NSS 60 cc x1 liter
- IV cefepime
- Follow urine culture, CBC, BMP
- PT/OT/case management consult
#Normocytic anemia concern for possible GI bleed
Hgb 8.3, MCV 87.3 baseline Hgb 9
-Brown heme positive stool
-Clear liquid diet
-Type and screen, obtain blood consent
-Test iron panel, B12, folate
- IV Protonix 40 mg given in ER continue Protonix daily
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
Creat 1.2 > 1.0 on 05/18/2024
Follow BMP
#Bipolar disorder
#Depression
-Check lithium level
- Continue lithium 300 mg at bedtime, Risperdal 0.5 mg daily, benztropine 0.5 mg twice daily
HTN�benign
BP 159/73
- Continue atenolol 12.5 mg p.o. daily with hold parameters HR<55
#Hx sinus bradycardia hold atenolol if HR <55
#WPW hx
#DM 2�diet controlled
- Accu-Cheks with SSI, check HgbA1c
Hold Lantus 5 units at bedtime as previous A1c was 5.1 05/10/2024
#Hx drug-induced parkinsonium
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
#Protein calorie malnutrition�BMI 23
Other PMH:
UTI
IBS
diverticulitis
former smoker.
DVT prophylaxis
SCDs
DNR
--- NOTE | 2024-08-15 17:32 | W.PN.UPDATE ---
Update Note
Progress Note Update
This note serves as an addendum to the H&P by dump truck driver [place] Adrienne FELICIANO
HPI
89F [facility] Legally blind Lt Eye, independent and lives in an apartment with a live in Aide, HX Bipolar disorder, Drug-induced parkinsonism, Meningioma, HTN, diet control D, m moderate protein calorie malnutrition with BMI of 23 seen at ER pw
Daughter:
- pw weakness and lethargy.
- Daughter states patient stopped eating/drinking 2 days ago. Sleeping most of day.
- Daughter states patient is now needing max assist to stand/transfer.
- No fever/chills
AFVSS
08/15/24
14:42
Temp 97.4 F
Pulse 58
Resp Rate 16
Blood pressure 152/60
SaO2 93
Oxygen Mode of Delivery Room air
PE
Gen: frail looking , very lethargic, arousable , slurred speech
HEENT:anicteric
Neck: supple
Lungs: CTA
Cor: RRR S1 S2
Abdomen: soft benign
ANDRES: HoB POS Brown stool HoB per ER INDEXER
PAINT MAKER: drowsy, oriented x1
MS:No edema
Psych: limited due to lethargy
Labs
05/17/24 05/18/24 08/15/24
13:58 07:42 15:01
Hgb 9.4 L 9.1 L 8.3 L
BUN 28 H
Creatinine 1.4 H 1.0 1.2 H
eGFR 54.19 43.27
Last hospitalist admission: DATE OF ADMISSION: 05/17/2024 - DATE OF DISCHARGE: 05/26/2024
DISCHARGE DIAGNOSIS:
1. Toxic metabolic encephalopathy secondary to dehydration and acute kidney injury.
OTHER CONDITIONS:
1. Bipolar disorder.
2. Drug-induced parkinsonism.
3. Meningioma.
4. Left eye blindness.
5. Essential hypertension.
6. History of type 2 diabetes, currently controlled by diet.
7. Moderate protein calorie malnutrition with BMI of 23.
ASSESSMENT & PLAN
HoB POS brown stool presumed GIB
Interval new anemia with hgb 8.2 on HCX normocytic ACdz with baseline Hgb low 9s
- HoB with each stool
- Blood consent
- T & S
- Nursing to screen for POs if nika- to start clear for now
- Trend Hgb
- IV PPI daily
- GI consult
Abnormal UA with significant pyuria - lethargic TME due to likely UTI
HX POS UCc for Klebsiella multi ABx sensitive including Cefepime except Cefazolin and ampicillin
HX POS Enterobacter sensitive to Cefepime
- f/u UCx
- empiric IV CFP
- Gentle IVF
weakness and Lethargic TME due to likely UTI and dehydration
- Fall precaution
- Nursing to screen for POs fluid
- PT
Element of MADONNA due to poor Pos and dehydration plus UTI
Prior HX baseline Cr low 1.2- 1.4 , eGFR hi 40s suggestive of underlying CKD3a/b
- s/p IV NS 500 cc at ER
- Gentle IVF with NS 60/H for 1000 cc
Diet control DM - last A1C 5.1 ( Apr 2024)
BMI 23
- Hold lantus
- check A1C
- add ISS low
Benign Hypertension
- on atenolol - hold if HR < 55
HX sinus bradycardia
HX WPW syndrome
Drug-induced Parkinson's disease
- c/w benztropine when able
Bipolar disorder
- c/w Haldol, lithium, risperidone when awake and alert
Meningioma
IBS
DVT Px: SCD
DNR/DNI
IP TLM
[2024-08-15] MEDS: PROTONIX IV 40 MG IV (17:55)
[2024-08-15] MEDS: NSS 1000 IV (17:57)
[2024-08-15 18:26] LABS: Iron 58 ug/dl (37-170)
[2024-08-15 18:35] LABS: Percent Saturation 13 % (20-50); Total Iron Binding Capacity 422 ug/dl (265-497)
[2024-08-15 19:08] LABS: Ferritin 11.9 ng/ml (11.1-264.0)
[2024-08-15 19:39] LABS: Folate 9.2 ng/ml (2.76-20); Vitamin B12 313 pg/ml (239-931)
[2024-08-15] MEDS: COGENTIN 0.5 MG PO (20:52)
[2024-08-15] MEDS: MAXIPIME 1000 MG IV (20:52)
[2024-08-15] MEDS: STERILE WATER FOR INJECTION 10 ML IV (20:52)
[2024-08-15] MEDS: DITROPAN 5 MG PO (21:00)
[2024-08-15 21:07] LABS: Glucose - Point of Care 117 mg/dl (70-99)
[2024-08-15] MEDS: ESKALITH REGULAR RELEASE 300 MG PO (22:35)
[2024-08-16] VITALS (7 sets, daily range): BP systolic 117–150; BP diastolic 51–73; PULSE 56; O2SAT 100; BMI 21.3
[2024-08-16 07:16] LABS: Glucose - Point of Care 83 mg/dl (70-99)
--- NOTE | 2024-08-16 07:22 | W.PN.HOSP.TC ---
Today's Communication/Plan
-
-Follow up urine culture
-Follow temperature curve, CBC
-Continue IV Cefepime
-Chest X ray
Assessment / Plan
Assessment / Plan
Patient is a 89 years old female who was admitted for evaluation of her progressing confusion and weakness. The patient also complained from having increased urinary frequency. At admission, her head CT was found unremarkable for an acute event.
Her urinalysis showed possible urinary tract infection without leukocytosis and fever. The patient has a past medical history of multiple UTIs in the past with resistance to many antibiotics. Additionally her hemoglobin level was found low and she
was consulted to GI for the possibility of GI bleeding.
# Toxic metabolic encephalopathy likely multifactorial secondary to UTI vs MADONNA vs medication related
-Continue UTI treatment
-Continue IV fluids gently
-Fall precautions
- PT/OT assessment
#Shortness of breath
-On 4L nasal supplementary nasal oxygen
-Chest X ray ordered
# UTI
- Urinalysis with significant pyuria suggesting urine infection
- Follow-up urine culture/ still pending
- Continue on IV cefepime given history of UTI with multidrug-resistant--sensitive to cefepime
- Follow CBC and BMP
# Anemia
-Hemoglobin level 8.3 at admission/7.4 on 08/16/24
-Stool Hem positive
-GI on board w
-Continue clear liquid diet
-Blood type/screen and blood consent was obtained/transfusion planning with hemoglobin<7 --trend hemoglobin level
-Type and screen, obtain blood consent
-Iron panel: Ferritin 13, iron 50, iron saturation 13, TIBC 422 // added B12, folate
- Continue IV Protonix 40 mg
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
-Creatinine 1.2 (baseline likely 1)
-Continue IV fluids
- Follow-up BMP
# Diabetes mellitus type 2
-Diet controlled with 5 units long-acting insulin
-Hold Lantus
-Continue low ISS
-hgb A1C 5.1 on 05/18/24
-BMI 23
# Hypertension
-Continue atenolol with parameters- hold if HR < 55
#Psychiatric diseases
-BPD: [place] level 1 on 08/16/27
-Continue lithium 300 mg at bedtime, Risperdal 0.5 mg daily
#Drug-induced Parkinson's disease
- c/w benztropine
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
#Hx of WPW syndrome
#Protein calorie malnutrition�BMI 23
# IBS
# History of diverticulitis
DVT Px: SCD
Code status: DNR/DNI
Anticipated Discharge: 24 - 48 hours
Subjective/Interval History
-
Date of Service: August 16, 2024
Patient denies chest or abdominal pain. Reports feeling better. Was found oriented to herself and hospital and president but nit to time.
Objective Data
-
Labs:
Laboratory Results
08/16/24
06:46
WBC Pending
Hgb Pending
Hct Pending
Plt Count Pending
Sodium Pending
Potassium Pending
Chloride Pending
Carbon Dioxide Pending
BUN Pending
Creatinine Pending
Glucose Pending
Calcium Pending
Total Bilirubin Pending
AST Pending
ALT Pending
Alkaline Phosphatase Pending
Vital Signs:
Vital Signs
Temp Pulse Resp BP Pulse Ox
97.3 F 56 16 150/57 100
08/16/24 02:08 08/16/24 02:08 08/16/24 02:08 08/16/24 02:08 08/16/24 02:08
I&O
08/15/24 08/16/24 08/17/24
06:59 06:59 06:59
Intake Total 1060 / 1060
Balance 1060 / 1060
Review of Systems
-
History Source: Patient, Family and Records
EENT: Reports No Symptoms Reported
Respiratory: Reports No Symptoms
Cardiac: Reports No Symptoms
Abdomen/GI: Reports No Symptoms
Genitourinary: Reports No Symptoms and Other (not reliable given her mental status)
Musculoskeletal: Reports Muscle Weakness (generalized)
Skin: Reports No Symptoms
Neuro: Reports No Symptoms
Physical Exam
-
General: Well Developed, Well Nourished and Appears Chronically Ill
HEENT: Normocephalic and Atraumatic
Respiratory: Clear to Auscultation
Cardiac: Regular Rhythm and S1/S2
Breast: Deferred by me
GI: Soft, Nontender and Nondistended
Genito-urinary: Other (some suprapubic discomfort to palpation )
Musculoskeletal: No Clubbing and No Cyanosis
Skin: Warm and Dry
Neuro: Awake, Alert, Oriented (place and herself/ not time ) and AO x 3
Psych: Calm
[2024-08-16] MEDS: NOVOLOG FLEXPEN-LOW RESISTANCE SC ×3 (07:46→17:35)
[2024-08-16] MEDS: TENORMIN 12.5 MG PO (07:50)
[2024-08-16] MEDS: DITROPAN 5 MG PO ×4 (07:51→20:42)
[2024-08-16] MEDS: COGENTIN 0.5 MG PO ×2 (07:51→20:42)
[2024-08-16] MEDS: RISPERDAL 0.5 MG PO (07:51)
[2024-08-16] MEDS: MAXIPIME 1000 MG IV ×2 (07:52→20:43)
[2024-08-16] MEDS: PROTONIX IV 40 MG IV (07:53)
[2024-08-16] MEDS: STERILE WATER FOR INJECTION 10 ML IV ×2 (07:53→20:43)
[2024-08-16 08:39] LABS: % Basophils 0.4 % (0-2); % Eosinophils 4.9 % (0-6); % Immature Granulocytes 0.2 % (0-0.5); % Lymphocytes 19.5 % (20.5-51.1); % Monocytes 10.8 % (1.7-9.3); % Neutrophils 64.2 % (42.2-75.2); Absolute Eosinophils 0.3 10^3/uL (0-0.7); Absolute Lymphocytes 1.1 10^3/uL (1.2-3.4); Absolute Monocytes 0.6 10^3/uL (0.1-0.6); Absolute Neutrophils 3.6 10^3/uL (1.4-6.5); Hematocrit 24.7 % (37.0-47.0); Hemoglobin 7.4 g/dL (12.0-16.0); Mean Corpuscular Hgb 26.1 pg (27.0-31.0); Mean Corpuscular Volume 87.3 fL (81.0-99.0); Mean Platelet Volume 11.1 fL (7.4-10.4); Nucleated Red Blood Cells % 0 %; Platelet Count 132 10^3/uL (130-400); Red Blood Cell Count 2.83 10^6/uL (4.20-5.40); Red Cell Dist. Width 16.3 % (11.5-14.5); White Blood Cell Count 5.6 10^3/uL (4.8-10.8)
[2024-08-16 09:17] LABS: ALT (SGPT) 19 U/L (0-35); AST (SGOT) 18 U/L (14-36); Albumin 3.3 g/dl (3.5-5.0); Alkaline Phosphatase 127 U/L (38-126); Blood Urea Nitrogen 22 mg/dl (7-17); Calcium 9.4 mg/dl (8.4-10.2); Carbon Dioxide 24 mmol/L (22-30); Chloride 108 mmol/L (98-107); Estimated Creatinine Clearance 26 ml/min; Glucose 77 mg/dl (70-99); Magnesium 1.7 mg/dl (1.6-2.3); Sodium 139 mmol/L (135-145); Total Bilirubin 0.5 mg/dl (0.2-1.3); Total Protein 5.8 g/dl (6.3-8.2); eGFR 39.31
--- NOTE | 2024-08-16 09:27 | CON.GI ---
Addendum entered and electronically signed by Ilan Michaud MD 08/16/24 16:52:
The patient was seen and examined by me independently in collaboration with the nurse practitioner.
Past medical history/social history/medications/allergies/family history reviewed.
Lab data and imaging data reviewed.
89-year-old female past medical history as below presenting with urinary tract infection. GIs been consulted for incidentally found iron deficiency anemia. She has Hemoccult positive stool.
In regards to GI complaints, patient does states she has chronic diarrhea and constipation discussed with the daughter this has been going on for many years and thought to be due to irritable bowel syndrome. 5 days ago she got Colace and MiraLAX
for constipation and she has been having diarrhea since then. This is her typical pattern. Patient also states with certain foods like [place] fries will get stuck. She has some generalized abdominal pain with eating.
I discussed with the patient and her daughter about endoscopy and colonoscopy. Risk, alternatives, benefits of both risks including but not limited to bleeding, infection, perforation reviewed as well as risk of anesthesia. Discussed slightly high
risk given her age. We discussed if she did have cancer would she want surgery. Patient states at this time that she would not like to proceed with endoscopy or colonoscopy. Discussed with her daughter, this is consistent with her prior wishes as
she does not want to pursue invasive procedures at this time given she is 89. She does understand the risk that this could represent a malignancy.
For now, continue Protonix. Monitor bowel habits. She seems to have chronic issues with constipation and diarrhea I would hold off on Imodium which I have DC'd. I also have started her on IV iron to see if that helps.
At this time, GI will sign off. Discussed with hospitalist team. Please call with any questions or issues.
Original Note:
Consultation
-
Date/Time Consultation Requested: 08/16/24 0020
Date/Time Consultation Performed: 08/16/24 0930
Requesting Provider: EDUARDO Shaw
Performing Provider: EDUARDO Tomlin, Bronwyn Michaud MD
Reason for Consultation: anemia
Medical History
Chief Complaint / HPI
History of Present Illness:
Pt is a 89yo with hx DM, sinus bradycardia, hypertension, drug-induced Parkinson disease, bipolar disorder, chronic normocytic anemia, leukopenia, IBS, prior daphne, hysterectomy,Meningioma, blindness, protein calorie malnutrition, diverticulitis
with noted weakness, urinary frequency, decreased appetite and headaches. hbg on admission was 8.3 with drop to 7.4 down for 9-11 range with brown heme + stool in ER. Urine on admission with concern for UTI with gram neg bacilli.
In review with patient she admits to some lower abdominal pain that is severe at time and constipation. denies odynophagia, dysphagia, GERD, nausea, vomiting, diarrhea, or rectal bleeding. She was unsure about prior EGD in past but admits to
colonoscopy years ago at [facility].
Past Medical History
Past Medical History: Arrhythmias (sinus bradicardia), HTN, NIDDM, Psychiatric (bipolar disorder, meningioma, chronic anemia, leukopenia, IBS) and Other (drug induced parkinson's disease, blindness, meningioma, protein calorie malnutrition,
diverticulitis, )
Past Surgical History: Cholecystectomy and Gynecological (hysterectomy)
Social History
Tobacco: Former Smoker
Alcohol: Occasional (social )
Drug: None
Living: Other (at home with Aid per patient )
Employment: Retired
Family History
Family History: Other
Allergies / Home Medications
Allergy/AdvReac Type Severity Reaction Status Date / Time
No Known Allergies Allergy Verified 05/17/24 13:39
�Medication �Instructions �Recorded
aspirin 81 mg tablet,delayed 81 mg PO Q48H Blood Clot 08/26/23
release Prevention/Tx
atenolol 25 mg tablet 12.5 mg PO DAILY Blood Pressure 05/17/24
loperamide 2 mg tablet 2 mg PO Q4HPRN PRN diarrhea 05/17/24
benztropine 0.5 mg tablet 0.5 mg PO BID Neurological 08/15/24
Condition
insulin glargine 100 unit/mL (3 5 unit SC QPM Diabetes 08/15/24
mL) subcutaneous pen (Lantus
Solostar U-100 Insulin)
lithium carbonate 300 mg capsule 300 mg PO HS Mental Health/Anxiety 08/15/24
oxybutynin chloride 5 mg 5 mg PO BID Urinary Issue 08/15/24
tablet,extended release 24 hr
risperidone 0.5 mg tablet 0.5 mg PO DAILY Mental 08/15/24
(Risperdal) Health/Anxiety
Review of Systems
-
History Source: Patient
Constitutional: Reports Weight Loss (over time )
EENT: Reports No Symptoms
Respiratory: Reports No Symptoms
Cardiac: Reports No Symptoms
Abdomen/GI: Reports Abdominal Pain and Constipated
: Reports No Symptoms
Musculoskeletal: Reports No Symptoms
Skin: Reports No Symptoms
Neurological: Reports Weakness
Endocrine: Reports No Symptoms
Hematologic/Lymphatic: Reports No Symptoms
Vital Signs
Temp Pulse Resp BP Pulse Ox
98.3 F 61 18 148/56 100
08/16/24 07:00 08/16/24 07:00 08/16/24 07:00 08/16/24 07:00 08/16/24 07:00
Physical Exam
Exam
General: Other (thin appearing with slow but conversant speech )
HEENT: Normocephalic and Anicteric
Respiratory: Clear
Cardiac: Regular Rhythm
GI: Soft, Non Tender and Non Distended
Musculoskeletal: No Clubbing and No Cyanosis
Skin: Warm and Dry
Neuro: Awake, Alert, AO x 3 and Other (slow speech occasional forgetfulness )
Psych: Calm
Results
WBC 5.6 10^3/uL (4.8-10.8) 08/16/24 06:46
Hgb 7.4 g/dL (12.0-16.0) L 08/16/24 06:46
Hct 24.7 % (37.0-47.0) L 08/16/24 06:46
MCV 87.3 fL (81.0-99.0) 08/16/24 06:46
Plt Count 132 10^3/uL (130-400) 08/16/24 06:46
Absolute Neuts (auto) 3.6 10^3/uL (1.4-6.5) 08/16/24 06:46
Sodium 139 mmol/L (135-145) 08/16/24 06:46
Potassium 4.0 mmol/L (3.5-5.1) 08/16/24 06:46
Chloride 108 mmol/L (98-107) H 08/16/24 06:46
Carbon Dioxide 24 mmol/L (22-30) 08/16/24 06:46
BUN 22 mg/dl (7-17) H 08/16/24 06:46
Creatinine 1.3 mg/dL (0.6-1.0) H 08/16/24 06:46
Calcium 9.4 mg/dl (8.4-10.2) 08/16/24 06:46
Total Bilirubin 0.5 mg/dl (0.2-1.3) 08/16/24 06:46
AST 18 U/L (14-36) 08/16/24 06:46
ALT 19 U/L (0-35) 08/16/24 06:46
Alkaline Phosphatase 127 U/L (38-126) H 08/16/24 06:46
Diagnostic Image Results:
08/15/24 CT Head W/o Iv Contrast
1. VERY SEVERE HYPEROSTOSIS FRONTOPARIETALIS with marked thickening of the calvarium causing moderate mass effect on the anterior frontal lobes and lateral left temporal lobe which appears unchanged.
2. Large 2.8 cm ossification arising from the left sphenoid bone causing mass effect on the inferior left frontal lobe (either hyperostosis or a meningioma) which appears unchanged.
3. Moderate white matter leukoaraiosis in the frontal lobes.
4. Mild diffuse cerebral and cerebellar volume loss.
1/27/25 CR Chest Portable - 1 View
Minimal basilar opacities which may represent atelectasis/scarring, less likely pneumonia.
Prior GI Procedures:
EGD: none
Colonoscopy: ? years ago at [facility]
Assessment / Plan
-
Pt is a 89yo with hx DM, sinus bradycardia, hypertension, drug-induced Parkinson disease, bipolar disorder,chronic normocytic anemia, leukopenia, IBS, prior daphne, hysterectomy,Meningioma, blindness, protein calorie malnutrition, diverticulitis
with noted weakness, urinary frequency, decreased appetite and headaches. hbg on admission was 8.3 with drop to 7.4 down for 9-11 range with brown heme + stool in ER. Urine on admission with concern for UTI with gram neg bacilli.
-anemia with hx chronic anemia
-heme + stool
-lower abdominal pain with concern for UTI on admission
-MADONNA on CKD
-protein calorie malnutrition
other med problems:
-DM
-sinus bradycardia
- hypertension
- drug-induced Parkinson disease
-bipolar disorder
- leukopenia
-IBS
-prior daphne
- hysterectomy
-Meningioma
-blindness
- diverticulitis
PLAN:
etiology of heme + anemia related to PUD, ectasia, mass vs other
no signs of aggressive GI bleeding
on ASA every other day and no AC prior to admission
pt unsure of prior work up in past
iron studies with iron 58, TIBC 422, % sat 13, ferritin 11.9 with mild iron deficiency w
will add B12, folate
Pt unsure about prior work up and would like me to review with daughter for plan -- I left message
cont PPI daily
trend hbg tranfuse <7
hold NSAIDs
cont RX for UTI remains on Maxipime
ok to continue clear diet for now
-
-
Thank you for consultation and allowing me to participate in the patient's care. Please call the commissioned police officer GI physician during the after hours with any questions or concerns.
[2024-08-16 10:55] LABS: Glycohemoglobin (HgbA1c) 5.1 % (4.0-5.6)
[2024-08-16 11:37] LABS: Glucose - Point of Care 145 mg/dl (70-99)
--- NOTE | 2024-08-16 11:43 | W.PN.UPDATE ---
Update Note
Progress Note Update
I saw and evaluated the patient. I reviewed the resident�s note and agree with findings and plan as documented in the resident�s note.
No new complaints.
Gen: NAD, Awake and alert, appears chronically ill
Eyes: EOMI, no scleral icterus.
Neck: supple.
CV: RRR, +S1/S2, no m/r/g.
Resp: CTAB, no rales, wheezes, or rhonchi.
Abd: +BS, soft, NT, ND
Skin: No rashes.
Neuro: CN 2-12 intact, non-focal.
Psych: Normal mood and affect.
08/15/24 15:15 Urine Urine Culture - Preliminary
Gram negative bacilli
CT brain:
1. VERY SEVERE HYPEROSTOSIS FRONTOPARIETALIS with marked thickening of the calvarium causing moderate mass effect on the anterior frontal lobes and lateral left temporal lobe which appears unchanged.
2. Large 2.8 cm ossification arising from the left sphenoid bone causing mass effect on the inferior left frontal lobe (either hyperostosis or a meningioma) which appears unchanged.
3. Moderate white matter leukoaraiosis in the frontal lobes.
4. Mild diffuse cerebral and cerebellar volume loss.
Normocytic anemia:
-Likely a combination of acute blood loss anemia (heme positive stool) as well as dilutional anemia
-GI following
-Iron panel only notable for low iron saturation
-trend Hb
-clears
Acute metabolic encephalopathy due to acute urinary tract infection:
-follow UCx
-cont Cefepime
Acute hypoxemic respiratory insufficiency:
-pt states she is not on O2 at home
-check CXR
Other problems:
CKD3b (MADONNA has been ruled out)
Bipolar disorder: cont [place]/Risperdal/Benztropine (h/o drug-induced parkinsonism)
Essential HTN: cont atenolol
h/o sinus bradycardia
h/o WPW
DM2: SSI/accuchecks. a1c 5.1%.
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
Moderate protein calorie malnutrition
IBS
SCDs
[2024-08-16] MEDS: NSS 1000 IV (11:58)
[2024-08-16 12:51] LABS: Vitamin B12 306 pg/ml (239-931)
--- NOTE | 2024-08-16 15:54 | CM ---
Patient seen bedside w/ 24hr caregiver. Initial assessment completed. Patient is a 89-year-old female who lives independently in an apartment with a live-in aide stopped eating and drinking 2 days ago according to her daughter. She was brought to
the ER for evaluation of weakness and lethargy she is a max assist to stand and transfer after not eating and drinking.
Patient resides w/ aide in a 2nd flr apartment- 10 steps to enter. Assisted w/ ADLs and ambulation, uses RW. Per chart hx, patient's baseline is an assist of one. Patient's last admission in April, was d/c to [facility] for skilled rehab,
requiring 30 day exemption.
Address, point of contact and insurance verified
PCP: Unknown
Pharmacy: [facility]
Therapy assessed patient, recommending skilled rehab. Attempted call to patient's daughter, Nirmala, left message
Plan: SNF recommended
[2024-08-16 16:27] LABS: Glucose - Point of Care 97 mg/dl (70-99)
[2024-08-16] MEDS: FERRLECIT 110 MG IV (17:35)
[2024-08-16] MEDS: ESKALITH REGULAR RELEASE 300 MG PO (20:42)
[2024-08-17 03:49] VITALS: BP 129/68
[2024-08-17] MEDS: NSS 1000 IV (05:32)
[2024-08-17 06:00] VITALS: BMI 21.1
[2024-08-17 07:17] LABS: % Basophils 0.2 % (0-2); % Eosinophils 5.1 % (0-6); % Immature Granulocytes 0.4 % (0-0.5); % Lymphocytes 17.9 % (20.5-51.1); % Monocytes 10.8 % (1.7-9.3); % Neutrophils 65.6 % (42.2-75.2); Absolute Eosinophils 0.3 10^3/uL (0-0.7); Absolute Monocytes 0.6 10^3/uL (0.1-0.6); Absolute Neutrophils 3.7 10^3/uL (1.4-6.5); Hematocrit 23.8 % (37.0-47.0); Hemoglobin 7.2 g/dL (12.0-16.0); Mean Corp Hgb Conc. 30.3 g/dL (33.0-37.0); Mean Corpuscular Hgb 26.2 pg (27.0-31.0); Mean Corpuscular Volume 86.5 fL (81.0-99.0); Nucleated Red Blood Cells % 0 %; Platelet Count 129 10^3/uL (130-400); Red Blood Cell Count 2.75 10^6/uL (4.20-5.40); Red Cell Dist. Width 16.2 % (11.5-14.5); White Blood Cell Count 5.6 10^3/uL (4.8-10.8)
[2024-08-17 07:49] VITALS: BP 127/48
[2024-08-17 07:54] LABS: ALT (SGPT) 16 U/L (0-35); AST (SGOT) 16 U/L (14-36); Albumin 2.9 g/dl (3.5-5.0); Alkaline Phosphatase 113 U/L (38-126); Blood Urea Nitrogen 18 mg/dl (7-17); Calcium 9.4 mg/dl (8.4-10.2); Carbon Dioxide 25 mmol/L (22-30); Chloride 109 mmol/L (98-107); Estimated Creatinine Clearance 26 ml/min; Glucose 85 mg/dl (70-99); Potassium 4.2 mmol/L (3.5-5.1); Sodium 138 mmol/L (135-145); Total Bilirubin 0.4 mg/dl (0.2-1.3); Total Protein 5.5 g/dl (6.3-8.2); eGFR 39.31
[2024-08-17 08:03] LABS: Glucose - Point of Care 116 mg/dl (70-99)
[2024-08-17] MEDS: NOVOLOG FLEXPEN-LOW RESISTANCE SC (08:11)
--- NOTE | 2024-08-17 08:17 | W.PN.HOSP.TC ---
Today's Communication/Plan
-
-Wean nasal Oxygen as able to
-follow temperature curve, CBC
-Follow final urine culture
Assessment / Plan
Assessment / Plan
Patient is a 89 years old female who was admitted for evaluation of her progressing confusion and weakness. The patient also complained from having increased urinary frequency. At admission, her head CT was found unremarkable for an acute event.
Her urinalysis showed possible urinary tract infection without leukocytosis and fever. The patient has a past medical history of multiple UTIs in the past with resistance to many antibiotics. Additionally her hemoglobin level was found low and she
was consulted to GI for the possibility of GI bleeding.
# Toxic metabolic encephalopathy likely multifactorial secondary to UTI vs MADONNA vs medication related
-Resolved-she is likely at her baseline
-Continue UTI treatment
-Continue IV fluids gently
-Fall precautions
- PT/OT assessment
#Shortness of breath
-Chest X ray ordered: unremarkable
-Denies shortness of breath
-Nasal supplementary nasal oxygen was weaned and saturating well on room air
# UTI
- Urinalysis with significant pyuria suggesting urine infection
- Follow-up urine culture:Gram negative basil-follow final result
- Continue on IV cefepime given history of UTI with multidrug-resistant--sensitive to cefepime
- Follow CBC and BMP
# Anemia
-Hemoglobin level 8.3 at admission/7.4 on 08/16/24
-Stool Hem positive
-GI discussed with her daughter and it was decided not to have further studies given patient`s age and chronic diseases.
-IV iron was ordered by GI
-Her diet was advanced to IDDSI 6
-Blood type/screen and blood consent was obtained/transfusion planning with hemoglobin<7 --trend hemoglobin level
-Type and screen, obtain blood consent
-Iron panel: Ferritin 13, iron 50, iron saturation 13, TIBC 422, B12 306 , folate 9.2
- Continue IV Protonix 40 mg
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
-Creatinine 1.3 (baseline likely 1-1.1)
-Continue IV fluids
- Follow-up BMP
# Diabetes mellitus type 2
-Diet controlled with 5 units long-acting insulin
-Hold Lantus
-Continue low ISS
-hgb A1C 5.1 on 05/18/24
-BMI 23
# Hypertension
-Continue atenolol with parameters- hold if HR < 55
#Psychiatric diseases
-BPD: [place] level 1 on 08/16/27
-Continue lithium 300 mg at bedtime, Risperdal 0.5 mg daily
#Drug-induced Parkinson's disease
- c/w benztropine
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
#Hx of WPW syndrome
#Protein calorie malnutrition
�BMI 23
-Mild
# IBS
# History of diverticulitis
DVT Px: SCD
Code status: DNR/DNI
Anticipated Discharge: 24 - 48 hours
Subjective/Interval History
-
Date of Service: August 17, 2024
The patient denies shortness of breath, abdominal pain, chest pain. She was found time to get out and oriented. She is tolerating oral taking well.
Objective Data
-
Labs:
Laboratory Results
08/17/24
06:29
WBC 5.6
Hgb 7.2 L
Hct 23.8 L
Plt Count 129 L
Sodium 138
Potassium 4.2
Chloride 109 H
Carbon Dioxide 25
BUN 18 H
Creatinine 1.3 H
Glucose 85
Calcium 9.4
Total Bilirubin 0.4
AST 16
ALT 16
Alkaline Phosphatase 113
Vital Signs:
Vital Signs
Temp Pulse Resp BP Pulse Ox
97.9 F 58 18 127/48 100
08/17/24 07:49 08/17/24 07:49 08/17/24 07:49 08/17/24 07:49 08/17/24 07:49
I&O
08/16/24 08/17/24 08/18/24
06:59 06:59 06:59
Intake Total 1060 / 1060 1560 / 1560
Balance 1060 / 1060 1560 / 1560
Review of Systems
-
History Source: Patient
EENT: Reports No Symptoms Reported
Respiratory: Reports No Symptoms
Cardiac: Reports No Symptoms
Abdomen/GI: Reports No Symptoms
Genitourinary: Reports No Symptoms
Musculoskeletal: Reports Other (Generalized weakness)
Neuro: Reports No Symptoms
Physical Exam
-
General: Well Developed, Comfortable and Appears Chronically Ill
HEENT: Normocephalic and Atraumatic
Respiratory: Clear to Auscultation
Cardiac: Regular Rhythm and S1/S2
GI: Soft, Nontender and Nondistended
Musculoskeletal: No Clubbing, No Cyanosis and No Edema
Skin: Warm
Neuro: Awake, Alert and Oriented (place and herself/ not time)
[2024-08-17] MEDS: STERILE WATER FOR INJECTION 10 ML IV (08:29)
[2024-08-17] MEDS: RISPERDAL 0.5 MG PO (08:30)
[2024-08-17] MEDS: TENORMIN 12.5 MG PO (08:30)
[2024-08-17] MEDS: MAXIPIME 1000 MG IV (08:30)
[2024-08-17] MEDS: PROTONIX IV 40 MG IV (08:31)
[2024-08-17] MEDS: DITROPAN 5 MG PO ×4 (08:31→21:47)
[2024-08-17] MEDS: COGENTIN 0.5 MG PO ×2 (08:31→21:39)
--- NOTE | 2024-08-17 08:48 | CM ---
CM reviewed chart, reviewed PT/OT recommendations of SNF. CM placed call to patients daughter, Nirmala, agreeable to rehab, requesting referrals to [facility], [facility], and [facility]. Daughter prefers [facility] as patient has been there
in the past. Per previous CM notes, patient was a 30 day exemption due to psych stay in 2022. Daughter reports this was in April of 2022, has been over two years, no longer requires [address] referrals, patient will require auth once
accepting facility found. Daughter reports patient will return home with caregiver after SNF.
Plan; SNF pending accepting facility, will require auth.
--- NOTE | 2024-08-17 10:16 | PN.CDI ---
CDI
- -
CDI:
Physician Documentation Request
Admit Date: 08/15/24 18:03
Dear Doctor,
Please review the following and provide your response in the progress notes.
Clinical Indicators:
- 08/16 PN 'Protein calorie malnutrition�BMI 23' without specificity
- No merchandise for resale purchasing agent note
- No weight loss in 3 months
- 08/15 ER Physician 'Daughter states patient stopped eating/drinking 2 days ago'
- PT note 'BLE ROM limited by rigidity; gross BLE mmt: 2+/5'
Please clarify which of the following most accurately represents the patient's nutritional status?
Malnutrition (specify if mild, moderate or severe)
Other (please specify)
[place] Criteria ([facility] Hospitalist 2017)
2 or more criteria must be present for either
non severe or severe malnutrition
Note that the criteria differs related to the
presence of an acute or chronic illness
Acute Illness Chronic Illness
Energy Intake Non Severe: <75% for >7 days Non Severe: <75% for >1 month
Severe: <50% for >5 days Severe: <75% for >1 month
Weight Loss Non Severe: 1-2% over 1 week Non Severe: 5% over 1 month
5% over 1 month 7.5% over 3 months
7.5% over 3 months 10% over 6 months
1 year N/A 20% over 1 year
Severe: >2% over 1 week Severe: >5% over 1 month
>5% over 1 month >7.5% over 3 months
>7.5% over 3 months >10% over 6 months
1 year N/A >20% over 1 year
Body Fat Non Severe: Mild Decrease Non Severe: Mild Loss
Severe: Moderate Decrease Severe: Severe Loss
Muscle Mass Non Severe: Mild Decrease Non Severe: Mild Loss
Severe: Moderate Decrease Severe: Severe Loss
Fluid Accumulation Non Severe: Mild Accumulation Non Severe: Mild Accumulation
Severe: Moderate to severe Severe: Moderate to severe
accumulation accumulation
Reduced Obstetrics Nurse Strength Non Severe: N/A Non Severe: N/A
Severe: Measurably reduced Severe: Measurably reduced
Additional criteria that can be used to Determine if Mild or Moderate Malnutrition ([employer] Manual 2018)
Mild Moderate Severe
Albumin gm/dl <3.0 gm/dl <2.5 gm/dl <2.0 gm/dl
Pre Albumin mg/dl <15 gm/dl <10 mg/dl <5.0 mg/dl
BMI <18.5 <17 <16
Use of terms such as suspected, likely, concern for, or probable (associated with a specific diagnosis that is being evaluated, monitored, or treated as if it exists) are acceptable and can be coded in the inpatient setting, when documented at the
time of discharge.
Thank you,
Deejay Arreola RN
CDI Specialist
Please use your independent medical judgment in providing your response.
--- NOTE | 2024-08-17 10:54 | W.PN.UPDATE ---
Addendum entered and electronically signed by Niels White MD 08/17/24 12:07:
Mild protein calorie malnutrition
Original Note:
Update Note
Progress Note Update
I saw and evaluated the patient. I reviewed the resident�s note and agree with findings and plan as documented in the resident�s note.
No new complaints.
Gen: NAD, Awake and alert, appears chronically ill
Eyes: EOMI, no scleral icterus.
Neck: supple.
CV: Remains RRR, +S1/S2, no m/r/g.
Resp: Remains CTAB, no rales, wheezes, or rhonchi.
Abd: Remains +BS, soft, NT, ND
Skin: No rashes.
Neuro: CN 2-12 intact, non-focal.
Psych: Normal mood and affect.
08/15/24 15:15 Urine Urine Culture - Final
Klebsiella pneumoniae
CT brain:
1. VERY SEVERE HYPEROSTOSIS FRONTOPARIETALIS with marked thickening of the calvarium causing moderate mass effect on the anterior frontal lobes and lateral left temporal lobe which appears unchanged.
2. Large 2.8 cm ossification arising from the left sphenoid bone causing mass effect on the inferior left frontal lobe (either hyperostosis or a meningioma) which appears unchanged.
3. Moderate white matter leukoaraiosis in the frontal lobes.
4. Mild diffuse cerebral and cerebellar volume loss.
Normocytic anemia:
-Likely a combination of acute blood loss anemia (heme positive stool) as well as dilutional anemia
-GI following
-Iron panel only notable for low iron saturation
-Hb 7.2, will transfuse 1U pRBCs
-was on clears, now on IDDSI 6
Acute metabolic encephalopathy due to acute urinary tract infection:
-based on UCx sensitivities, transition to PO abx
Acute hypoxemic respiratory insufficiency:
-pt states she is not on O2 at home. Was on 4L NC O2, now weaned to RA
-CXR: Mild cardiomegaly. Stable. No acute disease of the chest.
-transfuse 1U pRBCs as above
Other problems:
CKD3b (MADONNA has been ruled out)
Bipolar disorder: cont [place]/Risperdal/Benztropine (h/o drug-induced parkinsonism)
Essential HTN: cont atenolol
h/o sinus bradycardia
h/o WPW
DM2: SSI/accuchecks. a1c 5.1%.
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
Moderate protein calorie malnutrition
IBS
SCDs
Total time spent on today's encounter was 50 minutes which included time spent in counseling the patient/family regarding diagnosis and treatment plan as listed above, goals of care, and symptom management. Case was discussed with nursing staff,
specialists, and care coordinators/case management. All labs and imaging personally reviewed by me. Remainder the time spent in detailed review of previous records, lab data, imaging, and other medical provider documentation.
[2024-08-17 11:30] LABS: Glucose - Point of Care 229 mg/dl (70-99)
[2024-08-17 11:45] VITALS: BP 111/44
[2024-08-17] MEDS: NOVOLOG FLEXPEN-LOW RESISTANCE 2 UNITS SC (12:09)
[2024-08-17] MEDS: FERRLECIT 110 MG IV (14:11)
[2024-08-17 15:13] VITALS: BP 121/54
[2024-08-17 17:19] LABS: Glucose - Point of Care 173 mg/dl (70-99)
[2024-08-17] MEDS: NOVOLOG FLEXPEN-LOW RESISTANCE 1 UNITS SC (17:20)
[2024-08-17] MEDS: NSS IV (18:43)
[2024-08-17 19:25] VITALS: BP 136/52
[2024-08-17] MEDS: ESKALITH REGULAR RELEASE 300 MG PO (21:39)
[2024-08-17] MEDS: KEFLEX 500 MG PO (21:39)
[2024-08-17 21:56] LABS: Glucose - Point of Care 113 mg/dl (70-99)
[2024-08-17 23:29] VITALS: BP 147/60
[2024-08-18] VITALS (10 sets, daily range): BP systolic 124–172; BP diastolic 52–72; PULSE 57; O2SAT 95–97; BMI 21.6
--- NOTE | 2024-08-18 07:02 | W.PN.HOSP.TC ---
Today's Communication/Plan
-
-Follow Hgb
-Follow CBC, CMP and temperature curve
Assessment / Plan
Assessment / Plan
Patient is a 89 years old female who was admitted for evaluation of her progressing confusion and weakness. The patient also complained from having increased urinary frequency. At admission, her head CT was found unremarkable for an acute event.
Her urinalysis showed possible urinary tract infection without leukocytosis and fever. The patient has a past medical history of multiple UTIs in the past with resistance to many antibiotics. Additionally her hemoglobin level was found low and she
was consulted to GI for the possibility of GI bleeding. GI did sign off without any further procedures given her age and comorbidities.
# Toxic metabolic encephalopathy likely multifactorial secondary to UTI vs MADONNA vs medication related
-Resolved-she is likely at her baseline
-Head CT: no acute events
-Continue UTI treatment
-Continue cephalexin PO (Switched on 08/17/24)
-Continue IV fluids gently
-Fall precautions
- PT/OT assessment
# UTI
- Urinalysis with significant pyuria suggesting urine infection
- Follow-up urine culture:Kleb. pne
- Continue Cephalexin PO
- Follow CBC and BMP
#Shortness of breath
-Resolved
-Chest X ray ordered: unremarkable
-Denies shortness of breath
-Nasal supplementary nasal oxygen was weaned and saturating well on room air
# Anemia
-Hemoglobin level 8.3 at admission/7.4 on 08/16/24 and 7.2 on 08/17 and 7.3 on 08/18
-Stool Hem positive
-GI discussed with her daughter and it was decided not to have further studies given patient`s age and chronic diseases.
-IV iron was ordered by GI
-Her diet was advanced to IDDSI 6
-Blood type/screen and blood consent was obtained/transfusion planning with hemoglobin<7 --trend hemoglobin level
-Type and screen, obtain blood consent
-Iron panel: Ferritin 13, iron 50, iron saturation 13, TIBC 422, B12 306 , folate 9.2
- Continue IV Protonix 40 mg
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
-Creatinine 1.3 (baseline likely 1-1.1)
-Continue IV fluids
- Follow-up BMP
# Diabetes mellitus type 2
-Diet controlled with 5 units long-acting insulin
-Hold Lantus
-Continue low ISS
-hgb A1C 5.1 on 05/18/24
# Hypertension
-Continue atenolol with parameters- hold if HR < 55
#Psychiatric diseases
-BPD: [place] level 1 on 08/16/27
-Continue lithium 300 mg at bedtime, Risperdal 0.5 mg daily
#Drug-induced Parkinson's disease
- c/w benztropine
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
#Hx of WPW syndrome
#Protein calorie malnutrition
�BMI 23
-Mild to moderate
# IBS
# History of diverticuliti
DVT Px: SCD
Code status: DNR/DNI
Her daughter,her POA was called by me to obtain a consent form for blood transfusion on 08/17/29. A voice message left her 2 times and we did not hear back yet. We will try to contact to her today again.
Anticipated Discharge: 24 - 48 hours
Subjective/Interval History
-
Date of Service: August 18, 2024
Patient denies pain and shortness of breath this morning.
Objective Data
-
Labs:
Laboratory Results
08/18/24
06:00
WBC Pending
Hgb Pending
Hct Pending
Plt Count Pending
Sodium Pending
Potassium Pending
Chloride Pending
Carbon Dioxide Pending
BUN Pending
Creatinine Pending
Glucose Pending
Calcium Pending
Total Bilirubin Pending
AST Pending
ALT Pending
Alkaline Phosphatase Pending
Vital Signs:
Vital Signs
Temp Pulse Resp BP Pulse Ox
98.4 F 60 20 149/57 97
08/18/24 03:48 08/18/24 03:48 08/18/24 03:48 08/18/24 03:48 08/18/24 03:48
I&O
08/17/24 08/18/24 08/19/24
06:59 06:59 06:59
Intake Total 1560 / 1560 960 / 960
Balance 1560 / 1560 960 / 960
Review of Systems
-
History Source: Patient
Constitutional: Reports No Symptoms and Other (Not relaible given patient`s mental status )
Physical Exam
-
General: Well Developed, Comfortable and Cachectic
HEENT: Normocephalic and Atraumatic
Respiratory: Clear to Auscultation
Cardiac: Regular Rhythm and S1/S2
GI: Soft, Nontender and Nondistended
Musculoskeletal: No Clubbing, No Cyanosis and No Edema
Skin: Warm, Dry and Other
Neuro: Awake, Alert and Oriented (Oriented herself, year and president-not fully oriented to time and place )
Psych: Calm
[2024-08-18 08:06] LABS: % Basophils 0.4 % (0-2); % Eosinophils 4.9 % (0-6); % Immature Granulocytes 0.4 % (0-0.5); % Lymphocytes 22.5 % (20.5-51.1); % Monocytes 11.4 % (1.7-9.3); % Neutrophils 60.4 % (42.2-75.2); Absolute Eosinophils 0.3 10^3/uL (0-0.7); Absolute Lymphocytes 1.2 10^3/uL (1.2-3.4); Absolute Monocytes 0.6 10^3/uL (0.1-0.6); Absolute Neutrophils 3.2 10^3/uL (1.4-6.5); Hematocrit 24.2 % (37.0-47.0); Hemoglobin 7.3 g/dL (12.0-16.0); Mean Corp Hgb Conc. 30.2 g/dL (33.0-37.0); Mean Corpuscular Hgb 26.3 pg (27.0-31.0); Mean Corpuscular Volume 87.1 fL (81.0-99.0); Mean Platelet Volume 11.6 fL (7.4-10.4); Nucleated Red Blood Cells % 0 %; Platelet Count 139 10^3/uL (130-400); Red Blood Cell Count 2.78 10^6/uL (4.20-5.40); Red Cell Dist. Width 16.2 % (11.5-14.5); White Blood Cell Count 5.3 10^3/uL (4.8-10.8)
[2024-08-18 08:07] LABS: ALT (SGPT) 15 U/L (0-35); AST (SGOT) 16 U/L (14-36); Albumin 3.2 g/dl (3.5-5.0); Alkaline Phosphatase 121 U/L (38-126); Blood Urea Nitrogen 16 mg/dl (7-17); Calcium 9.3 mg/dl (8.4-10.2); Carbon Dioxide 23 mmol/L (22-30); Chloride 110 mmol/L (98-107); Estimated Creatinine Clearance 31 ml/min; Glucose 87 mg/dl (70-99); Potassium 4.1 mmol/L (3.5-5.1); Sodium 139 mmol/L (135-145); Total Bilirubin 0.4 mg/dl (0.2-1.3); Total Protein 5.7 g/dl (6.3-8.2); eGFR 48.03
[2024-08-18 08:08] LABS: Glucose - Point of Care 88 mg/dl (70-99)
[2024-08-18] MEDS: NOVOLOG FLEXPEN-LOW RESISTANCE SC ×3 (08:09→17:27)
[2024-08-18] MEDS: TENORMIN 12.5 MG PO (08:10)
[2024-08-18] MEDS: PROTONIX IV 40 MG IV (08:10)
[2024-08-18] MEDS: DITROPAN 5 MG PO ×3 (08:11→17:27)
[2024-08-18] MEDS: RISPERDAL 0.5 MG PO (08:11)
[2024-08-18] MEDS: COGENTIN 0.5 MG PO (08:11)
[2024-08-18] MEDS: KEFLEX 500 MG PO (08:11)
--- NOTE | 2024-08-18 10:29 | W.PN.UPDATE ---
Addendum entered and electronically signed by Niels White MD 08/18/24 13:58:
Total time spent on d/c = 40 min. This included today's physical exam, progress note, review of laboratory and diagnostic data, preparation of discharge documents and prescriptions, and discussions about the pt's hospital course and discharge plan
with the patient and other medical service technician involved in the patient's care.
Original Note:
Update Note
Progress Note Update
I saw and evaluated the patient. I reviewed the resident�s note and agree with findings and plan as documented in the resident�s note.
No new complaints.
Gen: NAD, Awake and alert, appears chronically ill
Eyes: EOMI, no scleral icterus.
Neck: supple.
CV: continues to remain RRR, +S1/S2, no m/r/g.
Resp: continues to remain CTAB, no rales, wheezes, or rhonchi.
Abd: continues to remain +BS, soft, NT, ND
Skin: No rashes.
Neuro: CN 2-12 intact, non-focal.
Psych: Normal mood and affect.
08/15/24 15:15 Urine Urine Culture - Final
Klebsiella pneumoniae
CT brain:
1. VERY SEVERE HYPEROSTOSIS FRONTOPARIETALIS with marked thickening of the calvarium causing moderate mass effect on the anterior frontal lobes and lateral left temporal lobe which appears unchanged.
2. Large 2.8 cm ossification arising from the left sphenoid bone causing mass effect on the inferior left frontal lobe (either hyperostosis or a meningioma) which appears unchanged.
3. Moderate white matter leukoaraiosis in the frontal lobes.
4. Mild diffuse cerebral and cerebellar volume loss.
Normocytic anemia:
-Likely a combination of acute blood loss anemia (heme positive stool) as well as dilutional anemia
-GI following
-Iron panel only notable for low iron saturation
-Hb stable at 7.3. Note, the plan was to transfuse the patient 1U pRBCs yesterday but, despite multiple attempts, we were unable to reach family. Daughter to arrive her at 11:30. Will transfuse 1U pRBCs today prior to d/c.
-was on clears, now on IDDSI 6
Acute metabolic encephalopathy due to acute urinary tract infection:
-based on UCx sensitivities, pt was transitioned to PO abx
Acute hypoxemic respiratory insufficiency:
-pt states she is not on O2 at home. Was on 4L NC O2, now weaned to RA
-CXR: Mild cardiomegaly. Stable. No acute disease of the chest.
Other problems:
CKD3b (MADONNA has been ruled out)
Bipolar disorder: cont [place]/Risperdal/Benztropine (h/o drug-induced parkinsonism)
Essential HTN: cont atenolol
h/o sinus bradycardia
h/o WPW
DM2: SSI/accuchecks. a1c 5.1%.
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
Moderate protein calorie malnutrition
IBS
DNR/SCDs
Medically cleared for d/c after 1U pRBCs, case management aware.
--- NOTE | 2024-08-18 12:39 | CM ---
Addendum entered by Toni Chang 08/18/24 13:57:
Per physician resident, consent received by daughter
IMM verbally reviewed, copy on chart
Patient will d/c to SNF after transfusion if no complications
Original Note:
Chart reviewed. Prev CM note confirmed that patient's daughter, Nirmala, prefers [facility] SNF as patient was prev there.
Spoke w/ [facility], can offer patient a bed today
Per hospitalist, patient needs blood transfusion, reported attempted calls yesterday to Nirmala for consent, no response as of today.
CM attempted call to Nirmala to inform of d/c plan today and [facility] accepting patient for today, left message
Auth required. Called 1800-ask blue, spoke w/ Susannah to initiate auth
Auth approved beginning today, last coverage day, 08/23. Reference # [id number]. Facility to call [phone] for updates
Patient will need ambulance, amb auth approved, reference # [id number]
CM will cont to make efforts in calling Nirmala to make aware of d/c today
[facility] SN[facility]
Report: [phone]

Plan: [facility] SN[facility]. Ambulance transport
[2024-08-18 12:54] LABS: Glucose - Point of Care 141 mg/dl (70-99)
[2024-08-18] MEDS: FERRLECIT 110 MG IV (12:55)
[2024-08-18 13:06] LABS: Glucose - Point of Care 151 mg/dl (70-99)
--- NOTE | 2024-08-18 13:28 | W.DCSUMMARY ---
Discharge Summary
Discharge Data
Date of Admission: 08/15/24
Date of Discharge: 08/18/24
-
Pending Results: No
Hospital Course
Disposition : SNF
Primary care physician :
Principal Discharge diagnosis : Acute metabolic encephalopathy due to acute urinary tract infection, Normocytic anemia, Acute hypoxemic respiratory insufficiency
Chronic Discharge diagnosis : CKD3b (MADONNA has been ruled out), Bipolar disorder,h/o drug-induced parkinsonism, Essential HTN, h/o sinus bradycardia, h/o WPW, DM2,h/o meningioma compressing the left optic nerve resulting in chronic left eye
blindness, Moderate protein calorie malnutrition, IBS
Hospital Course :
#Acute metabolic encephalopathy due to acute urinary tract infection: The patient was brought to the ER for an evaluation of weakness and lethargy. She also had complains of urinary frequency, decreased appetite along with headache. She was
obtained a head CT which was not remarkable for acute events. Her lab results showed low hemoglobin level to 8.3, normal WBC, slightly elevated creatinine level from her baseline to 1.2 and urinalysis was suggesting urinary tract infection. She
was admitted with a prediagnosis of urinary tract infection and started on cefepime given history of multiple MDR UTI. Her mental status improved gradually and she came to her baseline by her daughter report. Her urine culture came positive with
Klebsiella pneumonia. Her IV antibiotic treatment switched to oral cephalexin and prescribed at the discharge to complete her antibiotic course.
#Normocytic anemia: The patient's lab results showed low hemoglobin level at admission and her stool heme was found positive. Her iron studies were complaints with iron deficiency anemia. Therefore patient was consulted to GI. GI did not consider
an active bleeding from GI tract and had a discussion with her daughter for further procedure to understand the possible GI bleeding source. Her daughter decided not to have any further studies given her age and comorbidities. She was started on
PPI and IV iron transfusion by GI and it was switched to oral PPI and oral iron at discharge.
#Acute hypoxemic respiratory insufficiency: The patient was obtained a chest x-ray following her admission to the hospital. Her chest x-ray was found unremarkable and her nasal oxygen supplementation weaned gradually. The patient saturated well on
room air without any shortness of breath.
Important imaging findings :
08/15/[address]
FINDINGS:
There is no CT evidence for acute intracranial hemorrhage or extra-axial fluid collection. The ventricles are midline without evidence for obstructive hydrocephalus. There is no midline shift or herniation. There is mild diffuse cerebral and
cerebellar volume loss.
There is no CT evidence for acute transcortical infarct. There is a moderate amount of low-attenuation in the white matter of both frontal lobes consistent with moderate white matter leukoaraiosis. There is calcific atherosclerotic plaque in both
intracranial internal carotid arteries and in the right intracranial vertebral artery.
There is very severe diffuse hyperostosis frontoparietalis. The marked thickening of the frontal bones causes a moderate amount of mass effect on the anterior frontal lobe gyri. Calvarial thickening of the left temporal bone causes a moderate amount
of mass effect on the lateral gyri of the left temporal lobe. There is a large 2.7 x 2.8 x 1.8 cm ossification arising from the left sphenoid bone causing mass effect on the inferior left frontal lobe.
The orbits appear normal. The imaged paranasal sinuses and mastoid air cells are clear.
IMPRESSION:
1. VERY SEVERE HYPEROSTOSIS FRONTOPARIETALIS with marked thickening of the calvarium causing moderate mass effect on the anterior frontal lobes and lateral left temporal lobe which appears unchanged.
2. Large 2.8 cm ossification arising from the left sphenoid bone causing mass effect on the inferior left frontal lobe (either hyperostosis or a meningioma) which appears unchanged.
3. Moderate white matter leukoaraiosis in the frontal lobes.
4. Mild diffuse cerebral and cerebellar volume loss.
Electronically signed by Joshua Wells MD, 08/15/2024 6
08/16/24 Chest X ray
FINDINGS:
Lungs: The lungs are clear. No pleural effusion or pneumothorax.
Heart: The heart is mildly enlarged. There is minimal aortic arch calcification
Osseous structures: There is a mild lower thoracic spine dextroscoliosis and moderate osteophyte formation.
IMPRESSION:
Mild cardiomegaly. Stable
No acute disease of the chest.
Discharge Plan
-
Patient Disposition: Correction/SNF
Discharge Diagnosis/Procedures: Acute metabolic encephalopathy due to acute urinary tract infection
Normocytic anemia
Acute hypoxemic respiratory insufficiency
Condition: Good
Diet: Diabetic, Carb Controlled
Activity: Other activity
Additional Activity: as prior to admission
Driving Restrictions: No driving
Bathing Restrictions: None
Blood Work: BMP and CBC in 1 week, script from PCP
Referrals:
UNKNOWN - PT DOES,NOT KNOW [Family Provider] - in less than 1 week
Prescriptions:
New
cephalexin 500 mg Capsule
500 mg PO BID 4 Days Qty: 8 0RF
pantoprazole 40 mg tablet,delayed release (DR/EC)
40 mg PO DAILY 60 Days Qty: 60 2RF
ferrous sulfate 325 mg (65 mg iron) tablet
325 mg PO DAILY Qty: 60 1RF
Continued
aspirin 81 mg Tablet,Delayed Release (Dr/Ec)
81 mg PO Q48H
loperamide 2 mg Tablet
2 mg PO Q4HPRN PRN (Reason: diarrhea)
atenolol 25 mg Tablet
12.5 mg PO DAILY
lithium carbonate 300 mg Capsule
300 mg PO HS
oxybutynin chloride 5 mg Tablet Extended Release 24hr
5 mg PO BID
benztropine 0.5 mg Tablet
0.5 mg PO BID
risperidone [Risperdal] 0.5 mg Tablet
0.5 mg PO DAILY
Discontinued
insulin glargine [Lantus Solostar U-100 Insulin] 100 unit/mL (3 mL) Insulin Pen
5 unit SC QPM
Discharge Orders:
Discharge Patient (As Directed); Ordered 08/18/24
Ordered By: Niels White
Discharge Date and Time
Print Language: [place]AST [place]
[2024-08-18 17:09] LABS: Glucose - Point of Care 156 mg/dl (70-99)
== END 2024-08-18 18:32 | DRG 689 ==
LOC: 4 WEST ACU 18:03
PROVIDERS: Clinical Nurse Specialist Family Health; Nurse Practitioner; Student in an Organized Health Care Education/Training Program; ADMITTING PHYSICIAN Internal Medicine; ATTENDING PHYSICIAN Internal Medicine; CONSULT PHYSICIAN Internal Medicine Gastroenterology; EMERGENCY PHYSICIAN Student in an Organized Health Care Education/Training Program
PROC: 30233N1 Transfusion of Nonautologous Red Blood Cells into Peripheral Vein, Percutaneous Approach (ICD-10-PCS; 2024-08-18)
DX: N39.0 Urinary tract infection, site not specified (principal); G92.8 Other toxic encephalopathy; E44.1 Mild protein-calorie malnutrition; G21.19 Other drug induced secondary parkinsonism; R09.02 Hypoxemia; D50.9 Iron deficiency anemia, unspecified; I12.9 Hypertensive chronic kidney disease with stage 1 through stage 4 chronic kidney disease, or unspecified chronic kidney disease; E11.22 Type 2 diabetes mellitus with diabetic chronic kidney disease; N18.32 Chronic kidney disease, stage 3b; F31.9 Bipolar disorder, unspecified; H54.8 Legal blindness, as defined in USA; K58.8 Other irritable bowel syndrome; B96.1 Klebsiella pneumoniae [K. pneumoniae] as the cause of diseases classified elsewhere; M85.80 Other specified disorders of bone density and structure, unspecified site; M41.9 Scoliosis, unspecified; M25.78 Osteophyte, vertebrae; Z79.4 Long term (current) use of insulin; Z87.891 Personal history of nicotine dependence; G20.A1 Parkinson's disease without dyskinesia, without mention of fluctuations; Z90.710 Acquired absence of both cervix and uterus; Z79.82 Long term (current) use of aspirin; Z87.440 Personal history of urinary (tract) infections; Z66 Do not resuscitate; Z68.21 Body mass index [BMI] 21.0-21.9, adult; E86.0 Dehydration; F41.9 Anxiety disorder, unspecified; R54 Age-related physical debility
CPT/HCPCS: 70450; 71046; 80048; 80053; 80178; 81003; 81015; 82607; 82728; 82746; 82962; 83036; 83540; 83550; 83735; 84132; 85025; 86850; 86900; 86901; 86920; 87077; 87086; 87186; 96360; 97163; 97167; 97530; 97535; 99285; J2916; P9016